=== PATIENT | female | born 1955 | race Caucasian/White ===

== ENCOUNTER 2018-06-15 19:52 | Emergency (ER) | payer BC, SELFPAY ==
[2018-06-15 19:53] VITALS: BP 143/87; PULSE 87; RESP 25; TEMP 37; O2SAT 100; BMI 24.0
--- NOTE | 2018-06-15 20:04 | ED.RN ---
PT HYPERVENTILATING IN TRIAGE, THIS RN EDUCATED PT ON SLOW DEEP BREATHING.
[2018-06-15] MEDS: 0.9% Normal Saline 1,000 ML 1000 ML IV (20:44)
[2018-06-15] MEDS: Ondansetron 4 MG/2 ML Vial IV (20:44)
[2018-06-15 20:48] LABS: Absolute Lymphocyte Count 3.37 X10^3/ul (0.83-4.51); Basophil# 0.04 X10^3/uL; Basophil% 0.5 % (0-1); Eosinophil# 0.24 X10^3/uL; Eosinophils% 2.8 % (0-5); Hematocrit 42.1 % (37-47); Hemoglobin 14.2 g/dl (12.0-15.0); Lymphocyte # 3.37 X10^3/ul (4.0); Lymphocyte % 39.9 % (19-41); Mean Corp Hgb Conc 33.7 g/gl (32-36); Mean Corpuscular Hgb 30.1 pg (27.0-32.0); Mean Corpuscular Volume 89.2 fL (81-99); Mean Platelet Vol. 9.8 fl (6.2-12.0); Monocyte# 0.81 X10^3/uL; Monocyte% 9.6 % (0-10); Neutrophil # 3.98 X10^3/uL (2.7-7.7); Neutrophil % 47.2 % (47-70); Platelet Count 269 K/mm3 (150-450); RBC Distribution Width CV 12.9 % (11.6-14.6); RBC Distribution Width SD 41.8 fl (35.1-43.9); Red Blood Count 4.72 M/mm3 (4.2-5.4); White Blood Count 8.4 K/mm3 (4.4-11.0)
[2018-06-15 20:52] LABS: POSITIVE COUNT NO; POSITIVE DIFFERENTIAL NO; POSITIVE MORPHOLOGY NO
[2018-06-15 21:00] LABS: AST(SGOT) 28 U/L (15-37); Alanine Aminotransfer ALT/SGPT 36 U/L (13-56); Albumin, Serum 3.8 g/dL (3.2-5.0); Alkaline Phosphatase 140 U/L (45-117); Anion Gap 12 (5-15); BUN 22 mg/dL (7-18); BUN/Creat Ratio 22.3 RATIO (10-20); Bilirubin, Direct 0.08 mg/dL (0.00-0.30); Calcium,Total 8.6 mg/dL (8.5-10.1); Chloride 108 mmol/L (98-107); Creatinine, Serum 0.99 mg/dL (0.55-1.02); EST Glomerular Filtration Rate 60 mL/min (>60); Est Glom Filt Rate - Afr Amer 73 mL/min (>60); Estimated Creatinine Clearance 49.57 ml/min; Globulin 3.5 g/dL (2.2-4.2); Glucose 153 mg/dL (74-106); Potassium 3.8 mmol/L (3.5-5.1); Protein, Total 7.3 g/dL (6.4-8.2); Sodium Level 142 mmol/L (136-145)
--- NOTE | 2018-06-15 22:01 | ED.VISSUMM ---
- ER Visit Summary Date of Service: 06/15/18 Chief Complaint: Weakness, diarrhea History of Present Illness: The patient is a 63 F who ate some greasy, fried food at dinner. Patient states this type of food usually does not settle well with her. Shortly after dinner she developed lightheadedness, as if she is going to pass out, and tingling of her arms and legs. She did have diarrhea twice. She reports some nausea but no diarrhea. Patient denies chest pain or palpitations. She is a history of reflux disease. Physical Examination: Vital signs are unremarkable. Patient sitting upright in bed no acute distress. Head neck examination is normal. Heart is regular rate and rhythm. Lung sounds are clear. Abdomen is soft and nontender. Active bowel sounds are noted throughout. Neuro exam is nonfocal. Test Results: EKG is sinus 85 with no sign of acute ischemia. CBC and chemistry studies significant for glucose of 153. BUN is 22, creatinine is normal. LFTs significant only for alk phos of 140. Emergency Department Course and Treatment: Patient is given IV fluids along with Zofran. Repeat evaluation she does feel improved. She states she was able to ablate to the restroom and feels stronger. She is tolerating p.o. fluids at this time. I believe her symptoms are likely secondary to vasovagal reaction. This was discussed with patient as well as family members. She will be discharged home with her at this time. Treatment Plan: [] Disposition: Discharge Impression: 1. Vasovagal, near syncope 2. Diarrhea This note was generated with [employer] dictation software. It may contain incorrect words, spelling, and punctuation that were not noted in review of the chart prior to signing ED Disposition - Plan for ED Patient: Disposition: Home or Assisted Living Chief Complaint: General Illness Instructions: ED Near Syncope Vasovagal Referrals: Maddy Beard MD [Primary Care Provider] - 3-5 Days if not improving
[2018-06-15 22:03] VITALS: BP 150/73; PULSE 85; RESP 16; O2SAT 98
[2018-06-15 22:18] VITALS: BP 145/76; PULSE 97; RESP 13; O2SAT 98
== END 2018-06-15 22:19 | disposition home or self-care (01) ==
PROVIDERS: Emergency Provider Emergency Medicine; Family Provider Family Medicine; PCP Family Medicine
DX: R55 Syncope and collapse (principal); R19.7 Diarrhea, unspecified; Z79.82 Long term (current) use of aspirin; Z87.891 Personal history of nicotine dependence
CPT/HCPCS: 80048; 80076; 85025; 93005; 96361; 96374; 96375; 99284; J7030; A4216; J2405

== ENCOUNTER 2019-11-08 20:34 | Emergency (ER) | payer MEDICARE, SELFPAY ==
[2019-11-08 20:34] VITALS: BP 156/80; PULSE 103; RESP 13; O2SAT 100
[2019-11-08 20:36] VITALS: BP 145/98; PULSE 112; RESP 16; TEMP 36.7; O2SAT 100; BMI 26.1
--- NOTE | 2019-11-08 20:36 | ED.RN ---
PULLED OLD ZACHARIAH FOR
--- NOTE | 2019-11-08 20:38 | EKG12_ITS ---
Test Reason : PALPITATIONS Blood Pressure : / mmHG Vent. Rate : 098 BPM Atrial Rate : 098 BPM P-R Int : 176 ms QRS Dur : 086 ms QT Int : 348 ms P-R-T Axes : 052 116 036 degrees QTc Int : 444 ms Normal sinus rhythm Possible Left atrial enlargement Right axis deviation Confirmed by KELSEY BERTRAND, JONATHAN ([id number]), editorial clerk LUIS CARLOS HOLT ([id number]) on 11/11/2019 12:53:23 PM Referred By: Confirmed By:JONATHAN COLE MD
--- NOTE | 2019-11-08 21:05 | RAD_ITS ---
STUDY: X-RAY CHEST REASON FOR EXAM: Female, 64 years old. HIGH BLOOD PRESSURE, PALPITATIONS TECHNIQUE: Single AP portable view of the chest. COMPARISON: Prior study of 07/06/2010 FINDINGS: manager monitoring leads are present. The lungs are clear and expanded. There is no demonstrated pleural abnormality. Normal size heart. Normal mediastinum and blanca. Normal visualized pulmonary arteries. There are calcified plaques in the aortic arch. Normal visualized thoracic spine. Normal visualized ribs, clavicles, and shoulders. There is no demonstrated abnormality of the visualized soft tissue structures of the upper abdomen. RAD/Chest 1 View (Portable) IMPRESSION: Calcified plaques of the aortic arch. No acute cardiopulmonary disease process is seen. Electronically Signed: Scottie Cash MD at 21:25 EST , Service support ,
[2019-11-08 21:06] LABS: Absolute Neutrophil Count 7.8 X10^3/uL (2.0-7.7); Basophil# 0.05 X10^3/uL; Basophil% 0.4 % (0-1); Eosinophil# 0.13 X10^3/uL; Eosinophils% 1.1 % (0-5); Hemoglobin 14.2 g/dL (12.0-15.0); Lymphocyte % 26.7 % (19-41); Mean Corp Hgb Conc 33.8 g/dL (32-36); Mean Corpuscular Hgb 29.4 pg (27.0-32.0); Mean Platelet Vol. 9.3 fl (6.2-12.0); Monocyte% 6.7 % (0-10); NRBC Flagged by Analyzer 0 % (0-5); Neutrophil # 7.76 X10^3/uL (2.7-7.7); Neutrophil % 64.6 % (47-70); Platelet Count 309 K/mm3 (150-450); RBC Distribution Width CV 12.1 % (11.6-14.6); RBC Distribution Width SD 38.3 fl (35.1-43.9); Red Blood Count 4.83 M/mm3 (4.2-5.4)
[2019-11-08 21:13] LABS: Prothrombin Time (Protime)PT. 13.1 SECONDS (11.7-14.9)
[2019-11-08 21:27] LABS: Anion Gap 11 (5-15); BUN 21 mg/dL (7-18); BUN/Creat Ratio 21.2 RATIO (10-20); Calcium,Total 9.2 mg/dL (8.5-10.1); Chloride 102 mmol/L (98-107); Creatinine, Serum 0.99 mg/dL (0.55-1.02); EST Glomerular Filtration Rate 60 mL/min (>60); Est Glom Filt Rate - Afr Amer 72 mL/min (>60); Estimated Creatinine Clearance 48.92 ml/min; Glucose 117 mg/dL (74-106); Potassium 3.9 mmol/L (3.5-5.1); Sodium Level 134 mmol/L (136-145)
--- NOTE | 2019-11-08 22:32 | ED.VISSUMM ---
- ER Visit Summary Date of Service: 11/08/19 Chief Complaint: Palpitations History of Present Illness: The patient is a 64 F who presents with palpitations, hypertension, dizziness that is been getting worse over the past 4 hours. Patient states she has been having some intermittent lightheadedness with this. Patient states her blood pressure at home was 207 systolic. Patient states her blood pressure has been going up and down. Patient admits to some tingling in her hands. Patient denies any chest pain. Patient denies any shortness of breath. Patient denies any nausea or vomiting. Patient denies any diaphoresis. Physical Examination: Vital signs are stable. Patient is afebrile. Patient is in no acute distress. Oral mucosa is pink and moist. Neck is supple. Trachea is midline. There is no JVD noted. Heart was regular rate and rhythm. Lungs are clear and equal bilaterally. Abdomen is soft. Bowel sounds are normal. There is no tenderness. There is no rebound or guarding noted. Skin is warm dry. Cranial nerves II through XII are intact. There are no focal motor or sensory deficits noted. Extremities are intact. There is no calf tenderness or edema. Test Results: EKG showed normal sinus rhythm with a rate of 98. There are nonspecific ST-T wave changes and a right bundle branch block. This was unchanged compared to previous EKG dated 06/15/2018. CBC shows a slight leukocytosis of 12.0. Basic metabolic profile was normal. INR is 1.0. Troponin was normal. Portable chest x-ray was obtained. There are chronic changes but no acute cardiopulmonary process. This was interpreted by the radiologist and myself. Emergency Department Course and Treatment: Patient was monitored here in the emergency department. Patient had no further episodes of palpitations. Patient's blood pressure remained stable. Patient was instructed to continue to monitor her symptoms. Patient was instructed to follow-up with her primary care physician in 5 to 7 days. Patient and family understood and were agreeable with the plan. All questions were answered. Disposition: Discharge home Impression: 1. Palpitations This note was generated with [employer] software. It may contain incorrect words, spelling, and punctuation that were not noted in review of the chart prior to signing ED Disposition - Plan for ED Patient: Disposition: Home or Assisted Living Diagnosis: Palpitations Instructions: Palpitations Referrals: Maddy Beard MD [Primary Care Provider] - 5-7 Days
[2019-11-08 22:35] VITALS: BP 146/68; PULSE 93; RESP 13; O2SAT 99
== END 2019-11-08 22:41 | disposition home or self-care (01) ==
PROVIDERS: Emergency Provider Emergency Medicine; Family Provider Family Medicine; PCP Family Medicine
DX: R00.2 Palpitations (principal); R42 Dizziness and giddiness; R20.2 Paresthesia of skin; I45.10 Unspecified right bundle-branch block; I10 Essential (primary) hypertension; K21.9 Gastro-esophageal reflux disease without esophagitis; Z79.82 Long term (current) use of aspirin; Z79.899 Other long term (current) drug therapy; I70.0 Atherosclerosis of aorta
CPT/HCPCS: 71045; 80048; 84484; 85025; 85610; 93005; 99284; A4216

== ENCOUNTER → 2020-05-14 17:39 | Outpatient (CLI) | payer MEDICARE, SELFPAY | PROVIDERS: PCP Family Medicine; Referring Provider Internal Medicine Gastroenterology; Visit Provider Internal Medicine Gastroenterology | DX: Z11.59 Encounter for screening for other viral diseases (principal) | CPT/HCPCS: 87635; G2023; U0003 ==

== ENCOUNTER → 2020-06-17 07:33 | Outpatient (CLI) | payer MEDICARE, SELFPAY ==
--- NOTE | 2020-06-17 09:19 | NEURO ---
NCS and/or EMG Patient Report Ordering Doctor: Maddy Beard DATE OF SERVICE: 06/17/20 Richelle Gama is a 65-year-old female presents for electrodiagnostic testing of the left lower limb. Electrodiagnostic findings: Left common peroneal nerve demonstrates normal distal latency, amplitude and conduction velocity. Normal left tibial motor response. Normal tibial and peroneal F wave. H reflex normal bilaterally. Sensory responses are within normal limits. On needle EMG, all muscles tested in the left lower limb showed no evidence of denervation with normal motor unit action potentials. Electrodiagnostic impression: This is a normal electrodiagnostic study of the left lower limb. There is no electrodiagnostic evidence for peripheral neuropathy or lumbosacral radiculopathy. If there are any further questions, please do not hesitate to contact me.
== END ==
PROVIDERS: PCP Family Medicine; Referring Provider Family Medicine; Visit Provider Family Medicine
DX: G62.89 Other specified polyneuropathies (principal)
CPT/HCPCS: 95886; 95910

== ENCOUNTER → 2020-09-09 08:45 | Outpatient (CLI) | payer MEDICARE, SELFPAY ==
[2020-09-09 10:37] LABS: Anion Gap 3 (5-15); BUN 17 mg/dL (7-18); BUN/Creat Ratio 18.4 RATIO (10-20); Calcium,Total 8.6 mg/dL (8.5-10.1); Chloride 107 mmol/L (98-107); Cholesterol 257 mg/dL (200); Creatinine, Serum 0.93 mg/dL (0.55-1.02); EST Glomerular Filtration Rate 64 mL/min (>60); Est Glom Filt Rate - Afr Amer 78 mL/min (>60); Glucose 86 mg/dL (74-106); High Density Lipoprotein 42 mg/dL; Potassium 4.8 mmol/L (3.5-5.1); Sodium Level 141 mmol/L (136-145); Triglycerides 321 mg/dL; Very Low Density Lipoprotein 64 mg/dL (5-40)
== END ==
PROVIDERS: PCP Family Medicine; Referring Provider Family Medicine; Visit Provider Family Medicine
DX: I10 Essential (primary) hypertension (principal)
CPT/HCPCS: 36415; 80048; 80061

== ENCOUNTER → 2020-11-18 08:41 | Outpatient (CLI) | payer MEDICARE, SELFPAY ==
[2020-11-18 10:38] LABS: AST(SGOT) 43 U/L (15-37); Alanine Aminotransfer ALT/SGPT 87 U/L (13-56); Cholesterol 195 mg/dL (200); High Density Lipoprotein 39 mg/dL; Triglycerides 274 mg/dL; Very Low Density Lipoprotein 55 mg/dL (5-40)
== END ==
PROVIDERS: PCP Family Medicine; Referring Provider Family Medicine; Visit Provider Family Medicine
DX: E78.00 Pure hypercholesterolemia, unspecified (principal)
CPT/HCPCS: 36415; 80061; 84450; 84460

== ENCOUNTER → 2021-09-20 18:08 | Outpatient (CLI) | payer MEDICARE, SELFPAY | PROVIDERS: PCP Family Medicine; Visit Provider Family Medicine | DX: J06.9 Acute upper respiratory infection, unspecified (principal) | CPT/HCPCS: 87635; U0005; U0003 ==

== ENCOUNTER 2022-01-04 09:07 | Outpatient (CLI) | payer MEDICARE, SELFPAY ==
[2022-01-04 10:42] LABS: Microalbumin,Random Urine 9.6 mg/L (NO RANGE EST.); Microalbumin:Creatinine Ratio 5.5 mg/g CRE (<30 mg/g CRE)
[2022-01-04 13:07] LABS: AST(SGOT) 30 U/L (15-37); Alanine Aminotransfer ALT/SGPT 68 U/L (13-56); Anion Gap 6 (5-15); BUN 23 mg/dL (7-18); BUN/Creat Ratio 24.9 RATIO (10-20); Calcium,Total 8.8 mg/dL (8.5-10.1); Chloride 101 mmol/L (98-107); Cholesterol 191 mg/dL (200); Creatinine, Serum 0.92 mg/dL (0.55-1.02); EST Glomerular Filtration Rate 64 mL/min (>60); Est Glom Filt Rate - Afr Amer 78 mL/min (>60); Glucose 82 mg/dL (74-106); High Density Lipoprotein 43 mg/dL; Potassium 3.6 mmol/L (3.5-5.1); Sodium Level 138 mmol/L (136-145); Triglycerides 179 mg/dL; Very Low Density Lipoprotein 36 mg/dL (5-40)
== END 2022-01-04 23:59 | disposition home or self-care (01) ==
LOC: MTLAB 09:09
PROVIDERS: PCP Family Medicine; Referring Provider Family Medicine; Visit Provider Family Medicine
DX: E78.00 Pure hypercholesterolemia, unspecified (principal); I10 Essential (primary) hypertension
CPT/HCPCS: 36415; 80048; 80061; 82043; 82570; 84450; 84460

== ENCOUNTER → 2023-01-09 | Outpatient (CLI) | payer MEDICARE, SELFPAY ==
[2023-01-09 10:21] LABS: AST(SGOT) 22 U/L (15-37); Alanine Aminotransfer ALT/SGPT 38 U/L (13-56); Anion Gap 6 (5-15); BUN 16 mg/dL (7-18); BUN/Creat Ratio 18.4 RATIO (10-20); Calcium,Total 9.3 mg/dL (8.5-10.1); Chloride 101 mmol/L (98-107); Cholesterol 176 mg/dL (200); Creatinine, Serum 0.87 mg/dL (0.55-1.02); EST Glomerular Filtration Rate 69 mL/min (>60); Est Glom Filt Rate - Afr Amer 83 mL/min (>60); Glucose 92 mg/dL (74-106); High Density Lipoprotein 44 mg/dL; Sodium Level 137 mmol/L (136-145); Triglycerides 210 mg/dL; Very Low Density Lipoprotein 42 mg/dL (5-40)
[2023-01-09 10:28] LABS: Microalbumin,Random Urine 8.2 mg/L (NO RANGE EST.); Microalbumin:Creatinine Ratio 5.5 mg/g CRE (<30 mg/g CRE)
== END | disposition home or self-care (01) ==
LOC: MFPLAB 08:17
PROVIDERS: PCP Family Medicine; Visit Provider Family Medicine
DX: E78.00 Pure hypercholesterolemia, unspecified (principal); I10 Essential (primary) hypertension
CPT/HCPCS: 36415; 80048; 80061; 82043; 82570; 84450; 84460

== ENCOUNTER → 2023-01-12 | Outpatient (CLI) | payer MEDICARE, SELFPAY ==
--- NOTE | 2023-01-12 14:50 | BI_ITS ---
MAMMOGRAPHY - BILATERAL SCREENING REASON FOR EXAM: Female, 67 years old. Routine annual screening examination. PERTINENT HISTORY: Non-contributory. TECHNIQUE: Digital bilateral breast jessica (3D mammographic acquisition) in the CC and MLO projections. 2-D mediolateral oblique (MLO) and craniocaudad (CC) views of both breasts were obtained. CAD: Full Field Digital Mammography with Computer Added Detection was performed. COMPARISON: Comparison is made with prior outside examination dated December 11, 2019 and prior examination dated September 23, 2017. FINDINGS: Breast Composition: There are scattered areas of fibroglandular density. There are no dominant masses or suspicious calcifications. Stable small benign-appearing bilateral axillary lymph nodes. No other significant abnormalities are identified. There has been no significant change since the prior study. BI/SCRN MAMM (CAD)W/JESSICA BILAT IMPRESSION: Stable bilateral screening mammogram. Yearly follow-up mammogram recommended. (A) ASSESSMENT CATEGORY: BIRADS Category 2: Benign. A letter regarding these results will be sent to the patient by the facility within 30 days. Approximately 10% of breast cancers are not detected by mammography. A normal mammogram should not delay biopsy of a clinically suspicious abnormality. [id number] Electronically Signed: Maxwell Elkins MD at 11:58 EST ,
--- NOTE | 2023-01-12 14:56 | BD_ITS ---
STUDY: DUAL ENERGY X-RAY ABSORPTIOMETRY / DXA REASON FOR EXAM: Female, 67 years old. 733.90OsteopeniaBONE DENSITY REASON FOR EXAM TECHNIQUE: Bone Mineral Density (BMD) measurements of lumbar spine and bilateral hips were obtained. COMPARISON: None. FINDINGS: Lumbar Spine (L1-L4): g/cm2 (0.751) / T-score (-2.4) / Z-score (-0.4) Findings are suggestive of osteopenia with a high fracture risk. Left Femur Total: g/cm2 (0.668) / T-score (-2.2) / Z-score (-0.8) Left Femoral Neck: g/cm2 (0.528) / T-score (-2.9) / Z-score (-1.2) Right Femur Total: g/cm2 (0.638) / T-score (-2.5) / Z-score (-1.1) Right Femoral Neck: g/cm2 (0.537) / T-score (-2.8) / Z-score (-1.1) BD/Dexa Bone Density Study IMPRESSION: The patient is considered osteoporotic as outlined below according to World Fidel Organization (WHO) criteria with a high fracture risk. Reference Information: The T-score is the number of standard deviations above or below the standard which is normal for young adults at their peak bone mineral density. The World Health Organization (WHO) interprets the T-scores as follows: Above -1 Normal bone density Between -1 and -2.5 Osteopenia Equal to / or below -2.5 Osteoporosis As a practical clinical guideline, osteopenia may be graded as follows: Mild -1 through -1.5 Moderate -1.6 through -2.0 Severe -2.1 through -2.4 The Z-score is the number of standard deviations above or below age-matched controls. A Z-score of less than -1.5 would be considered abnormal. References: 1. NIH Osteoporosis and Related Bone Diseases www osteo.org 2. International Society for Clinical Densitometry www iscd.org 3. National Osteoporosis Foundation www nof.org Electronically Signed: Maxwell Elkins MD at 14:18 EST ,
== END | disposition home or self-care (01) ==
PROVIDERS: PCP Family Medicine; Referring Provider Family Medicine; Visit Provider Family Medicine
DX: M85.89 Other specified disorders of bone density and structure, multiple sites (principal); N95.9 Unspecified menopausal and perimenopausal disorder; Z12.31 Encounter for screening mammogram for malignant neoplasm of breast
CPT/HCPCS: 77063; 77067; 77080

== ENCOUNTER → 2024-01-01 | Outpatient (CLI) | payer MEDICARE, SELFPAY ==
[2024-01-01 15:57] LABS: Microalbumin,Random Urine < 5.0 mg/L (NO RANGE EST.)
[2024-01-01 16:07] LABS: AST(SGOT) 23 U/L (15-37); Alanine Aminotransfer ALT/SGPT 38 U/L (13-56); Anion Gap 6 (5-15); BUN 17 mg/dL (7-18); BUN/Creat Ratio 21.7 RATIO (10-20); Chloride 98 mmol/L (98-107); Cholesterol 177 mg/dL (200); Creatinine, Serum 0.78 mg/dL (0.55-1.02); EST Glomerular Filtration Rate 77 mL/min (>60); Est Glom Filt Rate - Afr Amer 94 mL/min (>60); Glucose 82 mg/dL (74-106); High Density Lipoprotein 40 mg/dL; Potassium 3.9 mmol/L (3.5-5.1); Sodium Level 134 mmol/L (136-145); Triglycerides 289 mg/dL; Very Low Density Lipoprotein 58 mg/dL (5-40)
--- OUTSIDE RECORDS SUMMARY | 2024-01-01 20:15 | XMS RPT_ITS | CCD ---
Author Name Unknown Address [address] [place] [address] Organization [facility] Care Team Providers [facility] Name Role Phone Maddy Beard Primary Care Provider [phone] Allergies Allergy Classification Reported Allergen(s) Allergy Type Date of Onset Reaction(s) Facility (4 sources) Sulfacetamide Drug Allergy 12-20-2011 GI Upset [facility] Work Phone: Medications Completed/Discontinued Medications Medication Drug Class(es) Dates Sig (Normalized) Sig (Original) aspirin 81 mg delayed release oral tablet (4 sources) Platelet Aggregation Inhibitor, Nonsteroidal Anti-inflammatory Drug Start: 12-20-2011 take 1 tablet by mouth once daily aspirin, enteric coated (ADULT LOW DOSE ASPIRIN) 81 mg ORAL EC tablet Take 1 tablet by mouth once daily. 0 12/20/2011 Active Problems Active Problems Problem Classification Problem Date Documented Da te Episodic/Chronic Other female genital disorders (2 sources) Lesion of vulva; Translations: [Other specified noninflammatory disorders of vulva and perineum] Episodic Other female genital disorders (1 source) Vulval irritation; Translations: [Other specified noninflammatory disorders of vulva and perineum] Episodic Other screening for suspected conditions (not mental disorders or infectious disease) (1 source) Patient encounter status; Translations: [Encounter for screening mammogram for malignant neoplasm of breast] Episodic Past or Other Problems Problem Classification Problem Date Documented Da te Episodic/Chronic Cardiac dysrhythmias (4 sources) Tachycardia; Translations: [Tachycardia, unspecified] Onset: 01-11-2013 01-11-2013 Episodic Results Test Name Value Interpretation Reference Range Facil ity Vital Signs Date Time Vital Sign Value Performing Clinician Jeffery curry 05-16-2022 09:18-0400 Body weight 66.95 kg Jewell Abarca MD Work Phone: [facility] 05-16-2022 09:18-0400 Diastolic blood pressure 68 mm[Hg] Jewell Abarca MD Work Phone: [facility] 05-16-2022 09:18-0400 Systolic blood pressure 110 mm[Hg] Jewell Abarca MD Work Phone: [facility] 03-09-2022 11:47-0400 Body weight 67.59 kg Jewell Abarca MD Work Phone: [facility] 03-09-2022 11:47-0400 Diastolic blood pressure 84 mm[Hg] Jewell Abarca MD Work Phone: [facility] 03-09-2022 11:47-0400 Systolic blood pressure 170 mm[Hg] Jewell Abarca MD Work Phone: [facility] 02-23-2022 15:52-0400 Body height 161.9 cm Jewell Abarca MD Work Phone: [facility] 02-23-2022 15:52-0400 Body weight 68.04 kg Jewell Abarca MD Work Phone: [facility] 02-23-2022 15:52-0400 Diastolic blood pressure 80 mm[Hg] Jewell Abarca MD Work Phone: [facility] 02-23-2022 15:52-0400 Systolic blood pressure 128 mm[Hg] Jewell Abarca MD Work Phone: [facility] Encounters Encounter Date Encounter Type Care Provider Facility Start: 05-16-2022 End: 05-16-2022 Patient encounter procedure Jewell Abarca MD Work Phone: OB/Gynecology Procedures Date Procedure Procedure Detail Performing Clinician Start: 12-11-2019 Mammography Jewell garcia MD Work Phone: Plan of Treatment Date Care Activity Detail Author Start: 07-07-2022 Influenza vaccination [facility] Start: 11-06-2021 ADVANCE DIRECTIVE DISCUSSION ADVANCE DIRECTIVE DISCUSSION [facility] Start: 08-25-2021 COVID-19 VACCINE (3 - Booster for Moderna series) COVID-19 VACCINE (3 - Booster for Moderna series) [facility] Start: 12-11-2020 Mammography MAMMOGRAM [facility] Start: 2019 BONE DENSITY BONE DENSITY [facility] Start: 2019 PNEUMOCOCCAL: 65+ (1 - PCV) PNEUMOCOCCAL: 65+ (1 - PCV) [facility] Start: 2019 PNEUMOVAX AGE 65 AND OVER WITH 5YR LOOKBACK (#1) PNEUMOVAX AGE 65 AND OVER WITH 5YR LOOKBACK (#1) [facility] Start: 12-20-2013 LIPID SCREEN LIPID SCREEN [facility] Start: 01-22-2004 SHINGRIX VACCINE (1 of 2) SHINGRIX VACCINE (1 of 2) [facility] Start: 1999 COLOGUARD (FIT-DNA) COLOGUARD (FIT-DNA) [facility] Start: 1999 Colonoscopy COLONOSCOPY [facility] Start: 1999 COLORECTAL CANCER SCREENING COLORECTAL CANCER SCREENING [facility] Start: [address] COLONOGRAPHY [facility] Start: 1999 DIABETES SCREEN DIABETES SCREEN [facility] Start: 1999 FECAL OCCULT BLOOD FECAL OCCULT BLOOD [facility] Start: 1999 SIGMOIDOSCOPY SIGMOIDOSCOPY [facility] Start: 1973 Urine microalbumin profile DTAP,TDAP,TD (1 - Tdap) [facility] Start: 01-22-1972 HEPATITIS C SCREENING HEPATITIS C SCREENING [facility] Start: 1966 Adult depression screening assessment DEPRESSION SCREENING [facility] Biopsy vulva/perineu m 1 lesion spx BIOPSY OF VULVA Procedures Routine Vulval lesion Ordered: 02/23/[address] [facility] Work Phone: Payers Date Payer Category Payer Unknown AN[employer] BL[employer] CR[employer] S AND BLUE [employer] MED[employer] ACCESS [id number] 2019-Present [phone] [address] [place] [address] [facility] [id number] Social History Date Type Detail Facility Tobacco smoking stat us INIS Never smoked tobacco [facility] Start: 02-23-2022 End: 05-16-2022 Alcohol intake Current non-drinker of alcohol (finding) [facility] Start: 1955 Sex Assigned At Not on file [facility] Start: 02-13-2022 End: 05-16-2022 Exposure to SARS-CoV-2 (event) Not sure [facility] Clinical Notes 01-11-2013 to 05-16-2022 Jewell Abarca MD - 05/16/2022 9:14 AM EDTTelephone Encounter - Sandrita Gilman RN - 03/09/2022 2:51 PM EDTTelephone Encounter - Jewell Abarca MD - 03/09/2022 2:46 PM EDT Note Date & Type Note Facility 05-16-2022 Note HNO ID: [id number] Author: Jewell Abarca MD Service: ? Author Type: Physician Type: Progress Notes Filed: 05/16/2022 9:33 AM Note Text: Americo Lees is a 67 year old female who presents for problem visit for f/u vulvar irritation. S/p biopsy. No definitive lichen planus or sclerosis. Feels much better. on steroid ointment taper, using every other day. No pruritis or burning. No dysuria. OB History T0 L2 SAB0 IAB0 Ectopic0 Multiple0 Live Births0 Comment: 2 vaginal deliveries [employer] History LMP: Postmenopausal Age at Menarche: Age at First : Age at Menopause: [employer] History Comments: Sexual Activity: Yes; No partner data on record; Postmenopusal Contraception: Tubal Ligation PAST MEDICAL HISTORY Diagnosis Date - Abnormal pap 11/25/2011 - Arthritis - Cervical high risk HPV (human papillomavirus) test positive 11/25/2011 - Diverticulitis - Hypertension PAST SURGICAL HISTORY Procedure Laterality Date - COLONOSCOPY 04/2016 - COLPOSCOPY CERVIX UPPER/ADJACENT VAGINA 2011 Colposcopy - LIG/TRNSXJ FLP TUBE ABDL/VAG APPR UNI/BI FAMILY HISTORY Problem Relation Age of Onset - Cancer Mother - Heart Father - Heart Sister - Prostate Cancer Brother 50's - Cancer Brother face Social History Tobacco Use - Smoking status: Never Smoker - Smokeless tobacco: Never Used Vaping Use - Vaping Use: Never used Substance Use Topics - Alcohol use: No - Drug use: No Current Outpatient Medications Medication Sig - clobetasol (TEMOVATE) 0.05 % ointment Apply 1 application to affected area as directed. pea-sized amount to vulvar area bid x 4 weeks, daily x 4 weeks then every other day for 4 weeks - rosuvastatin (CRESTOR) 10 mg tablet Take 10 mg by mouth once daily. - hydroCHLOROthiazide (HYDRODIURIL, ESIDRIX) 12.5 mg tablet Take 12.5 mg by mouth once daily. - pantoprazole DR (PROTONIX) 40 mg tablet TAKE 1 TABLET BY MOUTH ONCE DAILY IN THE MORNING BEFORE BREAKFAST - AMITIZA 8 mcg capsule Take 8 mcg by mouth twice daily. - metoprolol tartrate, short acting, 25 mg tablet Take 25 mg by mouth twice daily. - wt-HM-NG-Sk-Oxw-Mborwzo-Lutein (CENTRUM) 0.4-162-18 mg ORAL Tab Take 1 tablet by mouth once daily. - aspirin, enteric coated (ADULT LOW DOSE ASPIRIN) 81 mg ORAL EC tablet Take 1 tablet by mouth once daily. - zolpidem (AMBIEN) 5 mg ORAL tablet Take 1 tablet by mouth at bedtime as needed. FOR INSOMNIA No current facility-administered medications for this visit. Allergies As of Date: 05/16/2022 Allergen Noted Reaction SULFACETAMIDE 12/20/2011 GI Upset Fully Assessed 05/16/2022 Allergies and current medication updated:Yes EXAM: BP 110/68 Wt 147 lb 9.6 oz (67.0kg) GENERAL: pleasant, female in no apparent distress PELVIC: external genitalia atrophic and only mild erythema near urethra and inner upper labia majora bilaterally. No ulcerations or hyperpigmentation, normal Bartholin's glands, urethra, [place]'s glands, no vulvar lesions, no cervical lesions, good vaginal support, physiologic discharge present, normal appearing perineal body and perianal region BIMANUAL: uterus normal size, shape and consistency, no adnexal masses and non-tender ASSESSMENT AND PLAN: vulvar irritation- flares up. Doing well w/ steroid. Use it once a week maintanence and then daily for 2 weeks prn flares. She agrees w/ plan Medical Decision Making Jewell Abarca MD [facility] 05-16-2022 History of Present illness Narrative Americo Lees is a 67 year old female who presents for problem visit for f/u vulvar irritation. S/p biopsy. No definitive lichen planus or sclerosis. Feels much better. on steroid ointment taper, using every other day. No pruritis or burning. No dysuria. OB History T0 L2 SAB0 IAB0 Ectopic0 Multiple0 Live Births0 Comment: 2 vaginal deliveries [employer] History LMP: Postmenopausal Age at Menarche: Age at First : Age at Menopause: [employer] History Comments: Sexual Activity: Yes; No partner data on record; Postmenopusal Contraception: Tubal Ligation PAST MEDICAL HISTORY Diagnosis Date Abnormal pap 11/25/2011 Arthritis Cervical high risk HPV (human papillomavirus) test positive 11/25/2011 Diverticulitis Hypertension PAST SURGICAL HISTORY Procedure Laterality Date COLONOSCOPY 04/2016 COLPOSCOPY CERVIX UPPER/ADJACENT VAGINA 2011 Colposcopy LIG/TRNSXJ FLP TUBE ABDL/VAG APPR UNI/BI FAMILY HISTORY Problem Relation Age of Onset Cancer Mother Heart Father Heart Sister Prostate Cancer Brother 50's Cancer Brother face Social History Tobacco Use Smoking status: Never Smoker Smokeless tobacco: Never Used Vaping Use Vaping Use: Never used Substance Use Topics Alcohol use: No Drug use: No Current Outpatient Medications Medication Sig clobetasol (TEMOVATE) 0.05 % ointment Apply 1 application to affected area as directed. pea-sized amount to vulvar area bid x 4 weeks, daily x 4 weeks then every other day for 4 weeks rosuvastatin (CRESTOR) 10 mg tablet Take 10 mg by mouth once daily. hydroCHLOROthiazide (HYDRODIURIL, ESIDRIX) 12.5 mg tablet Take 12.5 mg by mouth once daily. pantoprazole DR (PROTONIX) 40 mg tablet TAKE 1 TABLET BY MOUTH ONCE DAILY IN THE MORNING BEFORE BREAKFAST AMITIZA 8 mcg capsule Take 8 mcg by mouth twice daily. metoprolol tartrate, short acting, 25 mg tablet Take 25 mg by mouth twice daily. ys-SV-BZ-Hn-Sxs-Ggspawg-Lutein (CENTRUM) 0.4-162-18 mg ORAL Tab Take 1 tablet by mouth once daily. aspirin, enteric coated (ADULT LOW DOSE ASPIRIN) 81 mg ORAL EC tablet Take 1 tablet by mouth once daily. zolpidem (AMBIEN) 5 mg ORAL tablet Take 1 tablet by mouth at bedtime as needed. FOR INSOMNIA No current facility-administered medications for this visit. Allergies As of Date: 05/16/2022 Allergen Noted Reaction SULFACETAMIDE 12/20/2011 GI Upset Fully Assessed 05/16/2022 Allergies and current medication updated:Yes EXAM: BP 110/68 Wt 147 lb 9.6 oz (67.0kg) GENERAL: pleasant, female in no apparent distress \PELVIC: external genitalia atrophic and only mild erythema near urethra and inner upper labia majora bilaterally. No ulcerations or hyperpigmentation, normal Bartholin's glands, urethra, [place]'s glands, no vulvar lesions, no cervical lesions, good vaginal support, physiologic discharge present, normal appearing perineal body and perianal region BIMANUAL: uterus normal size, shape and consistency, no adnexal masses and non-tender ASSESSMENT AND PLAN: vulvar irritation- flares up. Doing well w/ steroid. Use it once a week maintanence and then daily for 2 weeks prn flares. She agrees w/ plan Medical Decision Making Jewell Abarca MD documented in this encounter [facility] 03-09-2022 Miscellaneous Notes Patient notified. Sandrita Gilman RN tylenol, ibuprofen. Can soak in some plain warm water. Use cold packs prn. Keep it covered w/ Neosporin, Aquaphor or Vaseline to help with the burning. Jewell Abarca MD Patient seen in office today for vulvar biopsy. States the area is burning so badly she can't think about anything else. Did apply Neosporin. Wearing loose fitting clothing. Inquired if patient can take Tylenol or NSAID. Patient can take Tylenol and will see if that helps. Do you have further recommendations? Lissa Mcnally RN documented in this encounter [facility] 03-09-2022 Note HNO ID: [id number] Author: Jewell Abarca MD Service: ? Author Type: Physician Type: Progress Notes Filed: 03/09/2022 12:20 PM Note Text: Americo Lees is a 67 year old female who presents today for a vulvar biopsy. Indication: persistent pruritis and lesion. UNIVERSAL PROTOCOL / SAFETY CHECKLIST Procedure to be Performed: vulvar biopsy Sign In: A Moment of CARE was completed. Personnel directly involved with the procedure wore the appropriate PPE (Personal Protective Equipment). Patient/Surrogate Stated/Verified: PATIENT VERIFIED(optional for EMERGENT procedures): Patient name, Date of , Relevant allergies and The intended procedure Time Out Communication: Intended patient and procedure match the source documents. Consent documented and matches the intended procedure. No implant(s) inserted. Sign Out: SIGN OUT (optional for EMERGENT procedures): All specimen containers correctly labeled. All instruments, equipment, possible retained foreign bodies accounted for. Post-procedure follow-up management communicated and Plan of Care Visit completed when applicable. Carmel Billingsley MID TEACHER PROCEDURE NOTE: GROSS LESIONS: Yes, right labium majorum erythemetous, right side of perineum raised light brown lesions BIOPSY: Area was cleansed with betadine and anesthetized with 0.2mL 1% lidocaine with 1:100,000 epi. 3mm [place] punch used to biopsy region. HEMOSTASIS: Obtained with silver nitrate and pressure Procedure Summary: ASSESSMENT: vulvar pruritis and lesion PLAN: Specimens labeled and sent to Pathology. Will notify patient of results in 1-2 weeks. Post-procedure instructions reviewed and written material given to the patient. Jewell Abarca MD [facility] 03-09-2022 History of Present illness Narrative Americo Lees is a 67 year old female who presents today for a vulvar biopsy. Indication: persistent pruritis and lesion. UNIVERSAL PROTOCOL / SAFETY CHECKLIST Procedure to be Performed: vulvar biopsy Sign In: A Moment of CARE was completed. Personnel directly involved with the procedure wore the appropriate PPE (Personal Protective Equipment). Patient/Surrogate Stated/Verified: PATIENT VERIFIED(optional for EMERGENT procedures): Patient name, Date of , Relevant allergies and The intended procedure Time Out Communication: Intended patient and procedure match the source documents. Consent documented and matches the intended procedure. No implant(s) inserted. Sign Out: SIGN OUT (optional for EMERGENT procedures): All specimen containers correctly labeled. All instruments, equipment, possible retained foreign bodies accounted for. Post-procedure follow-up management communicated and Plan of Care Visit completed when applicable. Carmel Billingsley MID TEACHER PROCEDURE NOTE: GROSS LESIONS: Yes, right labium majorum erythemetous, right side of perineum raised light brown lesions BIOPSY: Area was cleansed with betadine and anesthetized with 0.2mL 1% lidocaine with 1:100,000 epi. 3mm [place] punch used to biopsy region. HEMOSTASIS: Obtained with silver nitrate and pressure Procedure Summary: ASSESSMENT: vulvar pruritis and lesion PLAN: Specimens labeled and sent to Pathology. Will notify patient of results in 1-2 weeks. Post-procedure instructions reviewed and written material given to the patient. Jewell Abarca MD documented in this encounter [facility] 02-23-2022 Note HNO ID: [id number] Author: Jeewll Abarca MD Service: ? Author Type: Physician Type: Progress Notes Filed: 02/23/2022 4:28 PM Note Text: Americo is a 67 year old who presents for an annual gynecologic exam with complaints, occas vuvlar pruritis/irritation. . Was better after steroid and vaginal cream for BV last year but flares up. No bleeding. Postmenopausal: yes HRT use: No. Last Pap: 12/17/2019 normal HPV: 12/16/2019 negative History of abnormal pap: remotely Last mammogram: 2019 normal History of abnormal mammogram: No Sexually active: Yes OB History T0 L2 SAB0 IAB0 Ectopic0 Multiple0 Live Births0 Comment: 2 vaginal deliveries [employer] History LMP: Postmenopausal Age at Menarche: Age at First : Age at Menopause: [employer] History Comments: Sexual Activity: Yes; No partner data on record; Postmenopusal Contraception: Tubal Ligation PAST MEDICAL HISTORY Diagnosis Date - Abnormal pap 11/25/2011 - Arthritis - Cervical high risk HPV (human papillomavirus) test positive 11/25/2011 - Diverticulitis - Hypertension PAST SURGICAL HISTORY Procedure Laterality Date - COLONOSCOPY 04/2016 - COLPOSCOPY CERVIX UPPER/ADJACENT VAGINA 2011 Colposcopy - LIG/TRNSXJ FLP TUBE ABDL/VAG APPR UNI/BI FAMILY HISTORY Problem Relation Age of Onset - Cancer Mother - Heart Father - Heart Sister - Prostate Cancer Brother 50's - Cancer Brother face SOCIAL HISTORY Social History Tobacco Use - Smoking status: Never Smoker - Smokeless tobacco: Never Used Vaping Use - Vaping Use: Never used Substance Use Topics - Alcohol use: No - Drug use: No REVIEW OF SYSTEMS Abdomen: No abdominal pain, nausea, vomiting, diarrhea, or constipation. No bloating, early satiety, indigestion, or increased flatulence. Bladder: No dysuria, gross hematuria, urinary frequency, urinary urgency, or incontinence Breast: No breast lumps, nipple d/c, overlying skin changes, redness or skin retraction Allergies and current medication updated:Yes EXAM: Ht 5' 3.75 (1.62m) Wt 150 lb (68.0kg) BMI 25.96 kg/(m2). GENERAL: pleasant, female in no apparent distress HEENT: Normocephalic, atraumatic, mucus membranes moist and no lesions NECK: Supple, full range of motion, no adenopathy and thyroid normal DERMATOLOGY: Normal, without lesions, non-icteric and non-hirsute BREAST: soft, non-tender, symmetric, no dominant mass, normal nipple-areolar complex, no lymphadenopathy and no nipple discharge CHEST: Normal inspiratory effort ABDOMEN: soft, non-tender and no masses PELVIC: external genitalia ww/ some erythema, ulcerated looking lesions on bilateral superior area of labia majora and periurethra., normal Bartholin's glands, urethra, [place]'s glands, no vulvar lesions, no cervical lesions, good vaginal support, large amoutn of vaginal discharge, yellow and mucous, cervix nonfriable, normal appearing perineal body and perianal region BIMANUAL: uterus normal size, shape and consistency, no adnexal masses and non-tender RECTOVAGINAL: deferred. NEURO: alert and oriented x3,exam grossly non-focal EXTREMITIES: normal ASSESSMENT/PLAN: 1) Health maintenance: Pap/HPV screening no longer needed Mammogram ordered vulvar irritation and lesions. Vaginal swab done for trich/GC/CT to be thorough. Will need vulvar biopsy. Suspicious for lichen planus. 2) Follow up one year or sooner as needed Jewell Abarca MD [facility] 02-23-2022 History of Present illness Narrative Americo is a 67 year old who presents for an annual gynecologic exam with complaints, occas vuvlar pruritis/irritation. . Was better after steroid and vaginal cream for BV last year but flares up. No bleeding. Postmenopausal: yes HRT use: No. Last Pap: 12/17/2019 normal HPV: 12/16/2019 negative History of abnormal pap: remotely Last mammogram: 2019 normal History of abnormal mammogram: No Sexually active: Yes OB History T0 L2 SAB0 IAB0 Ectopic0 Multiple0 Live Births0 Comment: 2 vaginal deliveries [employer] History LMP: Postmenopausal Age at Menarche: Age at First : Age at Menopause: [employer] History Comments: Sexual Activity: Yes; No partner data on record; Postmenopusal Contraception: Tubal Ligation PAST MEDICAL HISTORY Diagnosis Date Abnormal pap 11/25/2011 Arthritis Cervical high risk HPV (human papillomavirus) test positive 11/25/2011 Diverticulitis Hypertension PAST SURGICAL HISTORY Procedure Laterality Date COLONOSCOPY 04/2016 COLPOSCOPY CERVIX UPPER/ADJACENT VAGINA 2011 Colposcopy LIG/TRNSXJ FLP TUBE ABDL/VAG APPR UNI/BI FAMILY HISTORY Problem Relation Age of Onset Cancer Mother Heart Father Heart Sister Prostate Cancer Brother 50's Cancer Brother face SOCIAL HISTORY Social History Tobacco Use Smoking status: Never Smoker Smokeless tobacco: Never Used Vaping Use Vaping Use: Never used Substance Use Topics Alcohol use: No Drug use: No REVIEW OF SYSTEMS Abdomen: No abdominal pain, nausea, vomiting, diarrhea, or constipation. No bloating, early satiety, indigestion, or increased flatulence. Bladder: No dysuria, gross hematuria, urinary frequency, urinary urgency, or incontinence Breast: No breast lumps, nipple d/c, overlying skin changes, redness or skin retraction Allergies and current medication updated:Yes EXAM: Ht 5' 3.75 (1.62m) Wt 150 lb (68.0kg) BMI 25.96 kg/(m^2). GENERAL: pleasant, female in no apparent distress HEENT: Normocephalic, atraumatic, mucus membranes moist and no lesions NECK: Supple, full range of motion, no adenopathy and thyroid normal DERMATOLOGY: Normal, without lesions, non-icteric and non-hirsute BREAST: soft, non-tender, symmetric, no dominant mass, normal nipple-areolar complex, no lymphadenopathy and no nipple discharge CHEST: Normal inspiratory effort ABDOMEN: soft, non-tender and no masses PELVIC: external genitalia ww/ some erythema, ulcerated looking lesions on bilateral superior area of labia majora and periurethra., normal Bartholin's glands, urethra, [place]'s glands, no vulvar lesions, no cervical lesions, good vaginal support, large amoutn of vaginal discharge, yellow and mucous, cervix nonfriable, normal appearing perineal body and perianal region BIMANUAL: uterus normal size, shape and consistency, no adnexal masses and non-tender RECTOVAGINAL: deferred. NEURO: alert and oriented x3,exam grossly non-focal EXTREMITIES: normal ASSESSMENT/PLAN: 1) Health maintenance: Pap/HPV screening no longer needed Mammogram ordered vulvar irritation and lesions. Vaginal swab done for trich/GC/CT to be thorough. Will need vulvar biopsy. Suspicious for lichen planus. 2) Follow up one year or sooner as needed Jewell Abraca MD documented in this encounter [facility] 07-07-2021 Note HNO ID: [id number] Author: Jewell Abarca MD Service: ? Author Type: ? Type: Progress Notes Filed: 07/07/2021 12:01 PM Note Text: Americo Lees is a 66 year old female who presents for vaginal pruritis for several months.. She sexually active, no change in partners. She is never had anything like this before. She has had yeast infections in the past mostly associated with antibiotic use. It was several months ago that her primary care physician gave her Diflucan but that did not seem to help. She is tried [id number] Monistat suppositories and that did not help. She denies any new irritants. She does not wear pads. She denies significant urinary incontinence. She does wear nylon underwear 24 hours a day. She denies any urinary issues. Past medical, surgical, social history, medications and allergies reviewed and updated. OBJECTIVE: BP 110/74 Wt 147 lb (66.7kg) GENERAL: Well developed, well nourished in no apparent distress PELVIC: Normal perineal body, normal mons pubis, normal hair distribution pattern, normal labia majora that are somewhat atrophic. Atrophic introitus. Normal-appearing urethral meatus. The periurethral area and labia minora have some erythema that is bright red, no raised lesions, no hyperpigmentation. No fissures. No thin white skin. No fusion of the skin. Vaginal epithelium is pale, atrophic with a few petechiae. There is physiological yellowish discharge. No significant cystocele or rectocele. Cervix is smooth and nonfriable. Normal perianal area BIMANUAL: uterus normal size, shape and consistency, no adnexal masses and non-tender. ASSESSMENT/PLAN: Vulvar pruritus and erythema. Contact dermatitis versus other issue. Yeast swab collected. Clinical suspicion for yeast infection is low. 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 May use antihistamines as needed for control of pruritus. Steroid taper. Return in 6 weeks. If not resolved or significantly improved we will do a biopsy at that time. Office Visit on 07/07/21 - rosuvastatin (CRESTOR) 10 mg tablet - hydroCHLOROthiazide (HYDRODIURIL, ESIDRIX) 12.5 mg tablet - pantoprazole DR (PROTONIX) 40 mg tablet Jewell Abarca MD [facility] documented as of this encounter (statuses as of 02/23/2022) [facility]03[facility] History of Past illness Narrative* Problem Noted Date Resolved Date ASCUS (atypical squamous yahir ls of undetermined significance) on Pap smear 01/11/2013 02/23/2022 documented as of this encounter (statuses as of 03/09/2022) [facility] History of Past illness Narrative* Problem Noted Date Resolved Date ASCUS (atypical squamous yahir ls of undetermined significance) on Pap smear 01/11/2013 02/23/2022 documented as of this encounter (statuses as of 03/09/2022) [facility] History of Past illness Narrative* Problem Noted Date Resolved Date ASCUS (atypical squamous yahir ls of undetermined significance) on Pap smear 01/11/2013 02/23/2022 documented as of this encounter (statuses as of 05/16/2022) [facility] Encounter for gynecological examination with abnormal finding- Primary Routine gynecological examination Encounter for screening mammogram for breast cancer Vulval lesion Other specified noninflammatory disorder of vulva and perineum [facility] Diagnosis Vulvar lesion- Primary Other specified noninflammatory disorder of vulva and perineum [facility] Diagnosis Vulvar irritation- Primary Other specified noninflammatory disorder of vulva and perineum [facility] Diagnostic Procedure Only (Routine) - Pending Review Specialty Diagnoses / Procedures Referred By Contoh t Referred To Contact [facility] Diagnoses Encounter for gynecological examination (general) (routine) without abnormal findings Encounter for screening mammogram for breast cancer Procedures DEVAUGHN SCREENING SCREENING MAMMOGRAPHY BI 2-VIEW BREAST INC CAD Jewell Abarca MD [address] [place] [address] [facility] [address] [place] [address] Referral ID Status Reason Start Date Expiration Date Visits Requested Visits Authorized [id number] Pending Review Auto-Generat ed Referral 02/23/2022 03/25/2023 1 1 [facility] Summary Purpose Family History No Family History Records Found Advance Directives No Advanced Directives Records Found Additional Source Comments Source Comments (unrecognize d section and content) In the event this informatio n is protected by the Federal Confidentiality of Alcohol and Drug Abuse Patient Records regulations: The Federal rules restrict any use of the information to criminally investigate or prosecute any alcohol or drug abuse patient.[facility] the event this information is protected by the Federal Confidentiality of Alcohol and Drug Abuse Patient Records regulations: The Federal rules restrict any use of the information to criminally investigate or prosecute any alcohol or drug abuse patient.[facility] the event this information is protected by the Federal Confidentiality of Alcohol and Drug Abuse Patient Records regulations: The Federal rules restrict any use of the information to criminally investigate or prosecute any alcohol or drug abuse patient.[facility] the event this information is protected by the Federal Confidentiality of Alcohol and Drug Abuse Patient Records regulations: The Federal rules restrict any use of the information to criminally investigate or prosecute any alcohol or drug abuse patient.[facility] Care Teams (unrecognized sec tion and content) [employer] Specialist Relationship Specialty Start Date End Date Maddy Beard PCP - General Family Practice 02/04/14 [employer] Specialist Relationship Specialty Start Date End Date Maddy Beard PCP - General Family Practice 02/04/14 [employer] Specialist Relationship Specialty Start Date End Date Maddy Beard PCP - General Family Practice 02/04/14 Reason for Visit (unrecogniz ed section and content) Reason Comments Patient Question Vulvar pain Reason Comments Follow Up from clobetasol INFORMATION SOURCE (unrecogn ized section and content) FOR RECORDS PERTAINING TO PATIENTS WHO ARE OR HAVE BEEN ENROLLED IN A CHEMICAL DEPENDENCY/SUBSTANCEABUSE PROGRAM, SOME INFORMATION MAY BE OMITTED. This clinical summary was aggregated from multiple sources. Caution should be exercised in using it in the provision of clinical care. This summary normalizes information from multiple sources, and as a consequence, information in this document may materially change the coding, format and clinical context of patient data. In addition, data may be omitted in some cases. CLINICAL DECISIONS SHOULD BE BASED ON THE PRIMARY CLINICAL RECORDS. [facility]. provides no warranty or guarantee of the accuracy or completeness of information in this document.
== END | disposition home or self-care (01) ==
LOC: MFPLAB 11:53
PROVIDERS: PCP Family Medicine; Visit Provider Family Medicine
DX: E78.00 Pure hypercholesterolemia, unspecified (principal); I10 Essential (primary) hypertension
CPT/HCPCS: 36415; 80048; 80061; 82043; 82570; 84450; 84460

== ENCOUNTER → 2024-10-01 | Outpatient (CLI) | payer MEDICARE, SELFPAY ==
--- NOTE | 2024-10-01 11:36 | RAD_ITS ---
EXAM: XR LUMBOSACRAL SPINE COMPLETE WITH FLEXION/EXTENSION, 6 OR MORE VIEWS CLINICAL INDICATION: left leg pain TECHNIQUE: Lateral, frontal, oblique and lateral flexion/extension views of the lumbar spine and sacrum. COMPARISON: CT abdomen and pelvis, 09/04/2015 FINDINGS: VERTEBRAE: Multilevel endplate osteophytosis and facet arthrosis. Preservation of the normal lumbar lordosis. No fracture or spondylolysis. No spondylolisthesis. DISC SPACES: Intervertebral disc height loss at multiple levels, worst at L4-L5 associated with vacuum phenomenon. SOFT TISSUES: Bilateral tubal ligation clips are present. VASCULATURE: Vascular calcifications. GASTROINTESTINAL TRACT: Normal as visualized. Included bowel gas pattern is non-obstructive. RAD/L/S Spine w Bend Min 6 Vw IMPRESSION: No fracture or spondylolysis. No spondylolisthesis. Degenerative changes. Electronically Signed: Paul Vences DO at 0:04 EST ,
== END | disposition home or self-care (01) ==
PROVIDERS: PCP Family Medicine; Referring Provider Family Medicine; Visit Provider Family Medicine
DX: M54.32 Sciatica, left side (principal)
CPT/HCPCS: 72114

== ENCOUNTER 2024-11-24 19:22 | Emergency (ER) | payer MEDICARE, SELFPAY ==
[2024-11-24 19:27] VITALS: BP 179/82; PULSE 98; RESP 17; TEMP 36.7; O2SAT 100; BMI 26.0
--- NOTE | 2024-11-24 19:42 | EKG12_ITS ---
Test Reason : PALPITATIONS Blood Pressure : */* mmHG Vent. Rate : 105 BPM Atrial Rate : 105 BPM P-R Int : 180 ms QRS Dur : 82 ms QT Int : 348 ms P-R-T Axes : 56 110 42 degrees QTcB Int : 459 ms Sinus tachycardia Right axis deviation Possible Right ventricular hypertrophy Abnormal ECG Confirmed by MAYRA BERTRAND, CARO ([id number]), clinical editor LUIS CARLOS HOLT ([id number]) on 11/25/2024 10:59:31 A M Referred By: SANFORD Confirmed By: CARO NUNEZ MD
--- NOTE | 2024-11-24 19:44 | EDS_ITS ---
HPI History of Present Illness Chief Complaint: Palpitations Informant: patient, spouse/S.O. and EMS Narrative Narrative: 69-year-old female presenting to the emergency room with a chief complaint of palpitations. Patient states that recently she has had difficulty controlling her blood pressure. She saw cardiology on 13 November and her hydrochlorothiazide was discontinued and she was started on losartan. She is scheduled for an echocardiogram later this month. She notes her blood pressure continues to be elevated. She is also taking metoprolol 100 mg once a day which she takes for fast heart rate. The patient states that tonight she went home from [place] ate dinner and had a sudden onset of chest palpitations. She stated that he felt like her heart was racing and she had discomfort in her chest. She states it is improved now. EMS EKG showed a sinus tachycardia. [facility] Medical History Dizziness Fatigue Gastroenteritis Vertigo Elevated cholesterol Osteopenia Non-organic sleep disorder Essential (primary) hypertension Palpitations Gastroenteritis Home Medications ?Medication ?Instructions ?Recorded ?Last Taken ?Type aspirin 81 mg tablet,delayed 81 mg PO DAILY 02/27/17 02/27/17 History release (Aspir-Low) multivitamin (Daily Multiple 1 ea PO DAILY 06/15/18 Unknown History tablet) zolpidem 5 mg tablet 5 mg PO QHS PRN PRN Sleep 06/15/18 Unknown History lubiprostone 8 mcg capsule 8 mcg PO QDAY 10/10/24 Unknown History (Amitiza) meclizine 25 mg tablet 25 mg PO TID-QID PRN 10/10/24 Unknown History metoprolol succinate 100 mg 100 mg PO QDAY 10/10/24 Unknown History tablet,extended release 24 hr pantoprazole 40 mg tablet,delayed 40 mg PO QDAY 10/10/24 Unknown History release rosuvastatin 10 mg tablet (Crestor) 10 mg PO QDAY 10/10/24 Unknown History losartan 100 mg tablet 100 mg PO QDAY #90 tabs 11/13/24 Unknown Rx spironolactone 25 mg tablet 25 mg PO QDAY #30 tabs 11/21/24 Unknown Rx Allergy/AdvReac Type Severity Reaction Status Date / Time Sulfa (Sulfonamide Allergy Upset Verified 11/24/24 19:23 Antibiotics) Stomach Family History Sister Myocardial infarction Brother Myocardial infarction Father Myocardial infarction Surgical History Hx of tubal ligation Social History Smoking Status: Former smoker alcohol intake: never substance use type: does not use ROS ROS ED Constitutional Constitutional ED: Denies chills or weight loss Eyes Eyes: Denies change in vision or diplopia ENT ENT ED: Denies ear pain, rhinorrhea or sore throat Cardiovascular Cardiovascular: Reports palpitations and racing heartbeat; Denies chest pain or orthopnea Respiratory/Chest Respiratory/Chest: Denies cough, dyspnea or orthopnea Gastrointestinal Gastrointestinal: Denies abdominal pain, diarrhea, nausea or vomiting Genitourinary Genitourinary ED: Denies dysuria, hematuria or urinary frequency Musculoskeletal Musculoskeletal: Denies arthralgias or myalgias Integumentary Denies abscess or rash Neurologic Neurologic: Denies headache(s) or weakness Psychiatric Psychiatric: Denies anxiety, depression, suicidal ideation or suicidal thoughts Endocrine Endocrinology: Denies polydipsia, polyphagia or polyuria Allergic/Immunologic Allergic/Immunologic ED: Denies mouth swelling, tongue swelling or urticaria EXAM Physical Exam Const Vital Signs: 11/24/24 19:27 11/24/24 20:23 11/24/24 21:00 Temperature 98.1 F Temperature Source Oral Pulse Rate 98 95 78 Respiratory Rate 17 Blood Pressure 179/82 H 159/86 H 150/92 H Blood Pressure Mean 114 110 111 Pulse Ox 100 100 Oxygen Delivery Method Room Air 11/24/24 21:27 Temperature 97.9 F Temperature Source Pulse Rate 78 Respiratory Rate 18 Blood Pressure 150/92 H Blood Pressure Mean 111 Pulse Ox 99 Oxygen Delivery Method Positive well nourished and well developed General Appearance ED: well developed and NAD HEENT Reports normocephalic, head/scalp atraumatic and moist mucous membranes Eyes PERRL and EOMs intact bilaterally Neck no lymphadenopathy, supple and no JVD Resp normal respiratory effort and clear to auscultation bilaterally Cardio regular rate, regular rhythm and no murmurs GI normal to inspection, nondistended, normoactive bowel sounds and non-tender Palpation: soft Back/Spine no CVA tenderness and normal ROM Extremity normal to inspection General Extremety ED: Negative for edema General Extremity: Negative for edema Neuro oriented x3 and CN's II-XII intact bilaterally Sensorium / Orientation: alert Motor Exam: strength 5/5 throughout Psych mental status grossly normal Mood & Affect: anxious; Negative for depressed or tearful Skin no rashes or lesions noted and no wounds MDM MDM MDM Narrative Medical decision making narrative: Differential diagnosis includes but not limited to cardiac dysrhythmia electrolyte abnormalities anxiety anemia hypertension EKG demonstrates a sinus tachycardia with a ventricular rate of 105 bpm hemoglobin 13.4 white count of 8 platelets of 274. Magnesium 2.2 sodium potassium within normal limits TSH is 7.590. Patient's heart rate has come down on its own into the 80s. Blood pressures currently 150/92. I believe the patient can be discharged home. She should follow-up with primary care for the elevated TSH. She is going to follow-up with cardiology discussed her symptoms and get her echocardiogram that is scheduled for the end of the month History & Record Review Discussion w/independent historian: EMS personnel, Patient and Significant other Lab Data Attestation: I reviewed the patient's lab results. Labs: Laboratory Results - last 24 hr 11/24/24 19:44 WBC 8.0 RBC 4.38 Hgb 13.4 Hct 39.1 MCV 89.3 MCH 30.6 MCHC 34.3 RDW Std Deviation 41.0 RDW Coeff of Lara 12.5 Plt Count 274 MPV 8.9 Immature Gran % (Auto) 0.300 Neut % (Auto) 48.4 Lymph % (Auto) 36.8 Island % (Auto) 11.3 H Eos % (Auto) 2.6 Baso % (Auto) 0.6 Absolute Neuts (auto) 3.9 Absolute Lymphs (auto) 2.94 Nucleated RBC % 0 Sodium 140 Potassium 3.7 Chloride 108 H Carbon Dioxide 25.0 Anion Gap 7 BUN 18 Creatinine 0.88 Estim Creat Clear Calc 56.68 Est GFR (MDRD) Af Amer 82 Est GFR (MDRD) Non-Af 68 BUN/Creatinine Ratio 20.5 H Glucose 210 H Calcium 8.8 Magnesium 2.2 TSH 7.590 H Radiography Diagnostic Testing: Clinical Impression(s) from Imaging Studies Chest X-Ray 11/24/24 19:50 IMPRESSION: No radiographic evidence of acute cardiopulmonary disease. Electronically Signed: Abelardo D. Breckwoldt, MD at 20:25 EST , EKG Initial EKG: Attestation: I personally reviewed and interpreted this EKG as follows: Comments: sinus tachycardia with a ventricular rate of 105 bpm Discharge Plan Triage Chief Complaint: Palpitations ED Provider: Edinson Henao Dx/Rx/DC Orders Clinical Impression: Palpitations, Essential (primary) hypertension, Increased thyroid stimulating hormone (TSH) level Instructions: ED High Blood Pressure Hypertension, ED Palpitations Prescriptions: No Action metoprolol succinate 100 mg tablet extended release 24 hr 100 mg PO QDAY meclizine 25 mg tablet 25 mg PO TID-QID PRN rosuvastatin [Crestor] 10 mg tablet 10 mg PO QDAY lubiprostone [Amitiza] 8 mcg capsule 8 mcg PO QDAY pantoprazole 40 mg tablet,delayed release (DR/EC) 40 mg PO QDAY losartan 100 mg tablet 100 mg PO QDAY Qty: 90 3RF aspirin [Aspir-Low] 81 MG tablet,delayed release (DR/EC) 81 mg PO DAILY multivitamin [Daily Multiple] 1 EACH tablet 1 ea PO DAILY zolpidem 5 MG tablet 5 mg PO QHS PRN PRN (Reason: Sleep) Patient Comments: TAKE 1 TABLET BY MOUTH AT BEDTIME NEEDED FOR SLEEP spironolactone 25 mg tablet 25 mg PO QDAY Qty: 30 11RF Primary Care Provider: Maddy Beard Referrals: Maddy Beard MD [Primary Care Provider] - As soon as possible Adrian Ty MD [Med Staff - Active Staff] - Keep Raciel appointment Activity Restrictions/Additional Instructions: As we discussed your thyroid-stimulating hormone was elevated today. Please discuss this with your primary care doctor Please continue your cardiac medications. Please get the ultrasound that is ordered for your heart. Follow-up with cardiology. As we discussed your symptoms may return in may necessitate a repeat emergency visit. Print Language: Indonesian Disposition Disposition: Home, Self Care
--- NOTE | 2024-11-24 19:50 | RAD_ITS ---
EXAM: XR CHEST, 1 VIEW CLINICAL INDICATION: chest pain TECHNIQUE: Frontal view of the chest. COMPARISON: 11/08/2019 FINDINGS: LUNGS AND PLEURAL SPACES: Unremarkable. No consolidation or edema. No pneumothorax. No effusion. HEART: Unremarkable. Cardiac silhouette not enlarged. MEDIASTINUM: Central airways and mediastinal contour are unremarkable. BONES/JOINTS: Unremarkable. No acute fracture. SOFT TISSUES: Unremarkable. RAD/Chest 1 View (Portable) IMPRESSION: No radiographic evidence of acute cardiopulmonary disease. Electronically Signed: Abelardo Mai MD at 20:25 EST ,
[2024-11-24] MEDS: Aspirin 81 MG TAB.CHEW 324 MG PO (19:53)
[2024-11-24 19:55] LABS: Absolute Lymphocyte Count 2.94 X10^3/uL (0.83-4.51); Absolute Neutrophil Count 3.9 X10^3/uL (2.0-7.7); Basophil# 0.05 X10^3/uL; Basophil% 0.6 % (0-1); Eosinophil# 0.21 X10^3/uL; Eosinophils% 2.6 % (0-5); Hematocrit 39.1 % (37-47); Hemoglobin 13.4 g/dL (12.0-15.0); Lymphocyte # 2.94 X10^3/ul (0.83-4.51); Lymphocyte % 36.8 % (19-41); Mean Corp Hgb Conc 34.3 g/dL (32-36); Mean Corpuscular Hgb 30.6 pg (27.0-32.0); Mean Corpuscular Volume 89.3 fL (81-99); Mean Platelet Vol. 8.9 fl (6.2-12.0); Monocyte% 11.3 % (0-10); NRBC Flagged by Analyzer 0 % (0-5); Neutrophil # 3.86 X10^3/uL (2.7-7.7); Neutrophil % 48.4 % (47-70); Platelet Count 274 K/mm3 (150-450); RBC Distribution Width CV 12.5 % (11.6-14.6); Red Blood Count 4.38 M/mm3 (4.2-5.4)
[2024-11-24 20:21] LABS: Anion Gap 7 (5-15); BUN 18 mg/dL (7-18); BUN/Creat Ratio 20.5 RATIO (10-20); Calcium,Total 8.8 mg/dL (8.5-10.1); Chloride 108 mmol/L (98-107); Creatinine, Serum 0.88 mg/dL (0.55-1.02); EST Glomerular Filtration Rate 68 mL/min (>60); Est Glom Filt Rate - Afr Amer 82 mL/min (>60); Estimated Creatinine Clearance 56.68 ml/min; Glucose 210 mg/dL (74-106); Magnesium 2.2 mg/dL (1.6-2.6); Potassium 3.7 mmol/L (3.5-5.1); Sodium Level 140 mmol/L (136-145)
[2024-11-24 20:23] VITALS: BP 159/86; PULSE 95; O2SAT 100
[2024-11-24 21:00] VITALS: BP 150/92; PULSE 78
[2024-11-24 21:27] VITALS: BP 150/92; PULSE 78; RESP 18; TEMP 36.6; O2SAT 99
== END 2024-11-24 21:35 | disposition home or self-care (01) ==
PROVIDERS: Emergency Provider Emergency Medicine; PCP Family Medicine; Visit Provider Emergency Medicine
DX: R00.2 Palpitations (principal); E78.00 Pure hypercholesterolemia, unspecified; I10 Essential (primary) hypertension; Z79.82 Long term (current) use of aspirin; Z79.899 Other long term (current) drug therapy; Z87.891 Personal history of nicotine dependence
CPT/HCPCS: 71045; 80048; 83735; 84443; 85025; 93005; 99285; A4216

== ENCOUNTER → 2024-12-02 | Outpatient (CLI) | payer MEDICARE, SELFPAY ==
--- NOTE | 2024-12-02 12:42 | ECHOD_ITS ---
Reason For Study: HYPERTENSION Procedure This was a 2D Doppler, Color Flow transthoracic echocardiogram. Exam performed in department. Left Ventricle Normal left ventricle. Left ventricular systolic function is normal. The left ventricular ejection fraction is 65 %. No regional wall motion abnormalities noted. Right Ventricle Normal RV size. Normal systolic function. Atria Normal left atrium. Normal right atrium. Mitral Valve Normal mitral valve. Tricuspid Valve Normal tricuspid valve. Mild tricuspid valve insufficiency. Pulmonary artery systolic pressure is 22 mmHg. Aortic Valve Trisinus/trileaflet aortic valve. Mild (1+) aortic valve insufficiency. Pulmonic Valve Normal pulmonic valve. Great Vessels Normal aortic root. The pulmonary artery is normal size. Inferior vena cava collapse with respiration. Pericardium/Pleural No pericardial effusion. MMode/2D Measurements & Calculations LVIDd: 4.0 cm IVSd: 1.0 cm LVOT diam: 1.9 cm LVIDs: 2.3 cm LVPWd: 0.94 cm LVOT area: 2.9 cm2 RVDd: 2.5 cm FS: 41.9 % asc Aorta Diam: 3.0 cm LAV(MOD-bp): 23.8 ml LVAd ap4: 15.2 cm2 LAV(MOD-bp) Indexed: 14.3 ml/m2 LVLd ap4: 6.5 cm LAV(MOD-sp2): 24.1 ml EDV(MOD-sp4): 29.6 ml LAV(MOD-sp4): 23.1 ml EDV(sp4-el): 30.4 ml LVAs ap4: 8.2 cm2 LVLs ap4: 5.0 cm ESV(MOD-sp4): 11.2 ml ESV(sp4-el): 11.2 ml EF(MOD-sp4): 62.2 % EF(sp4-el): 63.1 % LVAd ap2: 16.7 cm2 SV(MOD-sp4): 18.4 ml SV(MOD-sp2): 21.0 ml LVLd ap2: 7.0 cm SI(MOD-sp4): 11.1 ml/m2 SI(MOD-sp2): 12.6 ml/m2 EDV(MOD-sp2): 32.8 ml EDV(sp2-el): 33.8 ml LVAs ap2: 9.1 cm2 LVLs ap2: 6.1 cm ESV(MOD-sp2): 11.8 ml ESV(sp2-el): 11.4 ml EF(MOD-sp2): 64.0 % SV(sp4-el): 19.1 ml Ao sinus diam: 2.[address] Junction: 2.1 cm LA dimension(2D): 3.3 cm LA A4 area: 11.2 cm2 RA A4 area: 6.2 cm2 TAPSE: 2.1 cm Time Measurements MV dec time: 0.13 sec Doppler Measurements & Calculations MV E max shalom: 71.6 cm/sec Lat Peak E' Shalom: 10.9 cm/sec Med Peak E' Shalom: 7.9 cm/sec MV A max shalom: 84.8 cm/sec E/E' lat: 6.6 E/E' med: 9.1 MV E/A: 0.84 MV dec slope: 554.6 cm/sec2 Ao V2 max: 119.4 cm/sec AI max shalom: 383.7 cm/sec Ao max P.7 mmHg AI max P.9 mmHg Ao V2 mean: 84.4 cm/sec AI dec slope: 203.6 cm/sec2 Ao mean P.2 mmHg AI P1/2t: 551.9 msec Ao V2 VTI: 26.3 cm AV (velocity ratio): 0.71 NITA(I,D): 2.0 cm2 NITA(V,D): 2.0 cm2 LV V1 max: 81.9 cm/sec SV(LVOT): 53.2 ml PA V2 max: 105.7 cm/sec LV V1 max P.7 mmHg LV V1 mean P.5 mmHg LV V1 mean: 56.7 cm/sec LV V1 VTI: 18.6 cm TR max shalom: 212.3 cm/sec TR max P.0 mmHg ECHO/Echo Complete Interpretation Summary Normal left ventricle. Left ventricular systolic function is normal. The left ventricular ejection fraction is 65 %. Mild (1+) aortic valve insufficiency. Pulmonary artery systolic pressure is 22 mmHg. Ordering Physician: Adrian Ty Referring Physician: Maddy Beard M.D. Performed By: Anna Lin RDCS
== END | disposition home or self-care (01) ==
PROVIDERS: PCP Family Medicine; Referring Provider Internal Medicine Cardiovascular Disease; Visit Provider Internal Medicine Cardiovascular Disease
DX: I10 Essential (primary) hypertension (principal); R94.31 Abnormal electrocardiogram [ECG] [EKG]
CPT/HCPCS: 93306

== ENCOUNTER → 2025-01-03 | Outpatient (CLI) | payer MEDICARE, SELFPAY | END | disposition home or self-care (01) | LOC: MFPLAB 11:08 | PROVIDERS: PCP Family Medicine; Referring Provider Family Medicine; Visit Provider Family Medicine | DX: E03.9 Hypothyroidism, unspecified (principal) | CPT/HCPCS: 36415; 84443 ==

== ENCOUNTER → 2025-02-18 | Outpatient (CLI) | payer MEDICARE, SELFPAY ==
[2025-02-18 18:30] LABS: Absolute Neutrophil Count 3.7 X10^3/uL (2.0-7.7); Basophil# 0.05 X10^3/uL; Basophil% 0.6 % (0-1); Eosinophil# 0.24 X10^3/uL; Eosinophils% 3.1 % (0-5); Hematocrit 40.2 % (37-47); Hemoglobin 13.5 g/dL (12.0-15.0); Lymphocyte % 39.8 % (19-41); Mean Corp Hgb Conc 33.6 g/dL (32-36); Mean Corpuscular Volume 89.3 fL (81-99); Mean Platelet Vol. 9.7 fl (6.2-12.0); Monocyte# 0.73 X10^3/uL; Monocyte% 9.4 % (0-10); NRBC Flagged by Analyzer 0 % (0-5); Neutrophil # 3.65 X10^3/uL (2.7-7.7); Neutrophil % 46.8 % (47-70); Platelet Count 264 K/mm3 (150-450); RBC Distribution Width CV 12.3 % (11.6-14.6); RBC Distribution Width SD 40.5 fl (35.1-43.9); White Blood Count 7.8 K/mm3 (4.4-11.0)
[2025-02-18 19:23] LABS: Erythrocyte Sedimentation Rate 10 mm/hr (0-30)
== END | disposition home or self-care (01) ==
LOC: MFPLAB 16:06
PROVIDERS: PCP Family Medicine; Referring Provider Family Medicine; Visit Provider Family Medicine
DX: J32.9 Chronic sinusitis, unspecified (principal)
CPT/HCPCS: 36415; 85025; 85652

== ENCOUNTER → 2025-06-24 | Outpatient (CLI) | payer MEDICARE, SELFPAY | END | disposition home or self-care (01) | LOC: MFPLAB 11:57 | PROVIDERS: PCP Family Medicine; Referring Provider Family Medicine; Visit Provider Family Medicine | DX: E03.9 Hypothyroidism, unspecified (principal) | CPT/HCPCS: 36415; 84443 ==

== ENCOUNTER → 2025-07-24 | Outpatient (CLI) | payer MEDICARE, SELFPAY ==
--- NOTE | 2025-07-24 18:40 | CT_ITS ---
PROCEDURE: ABDOMEN/PELVIS WITHOUT CONT 07/24/2025 REASON FOR EXAM: ABDOMINAL PAIN Several month history of diffuse abdominal pain. TECHNIQUE: Procedure Code: CTABDPEL Modality: CT Procedure: ABDOMEN/PELVIS WITHOUT CONT Noncontrast technique limits evaluation of the abdominal and pelvic viscera. Coronal and Sagittal reconstruction series were provided. One or more dose reduction techniques were used (e.g., Automated exposure control, adjustment of the mA and/or kV according to patient size, use of iterative reconstruction technique). RADIATION DOSE SUMMARY: CTDlvol: 6.36 mGy DLP: 317.92 mGycm COMPARISON: None FINDINGS: Lung bases: The lung bases are clear. Liver: Normal size. No obvious mass. Gallbladder: Unremarkable Spleen: Normal size. Pancreas: Normal size. No surrounding inflammation. Adrenals: Adrenal glands are unremarkable. Kidneys: No urolithiasis. No hydronephrosis. Bladder: Unremarkable Reproductive Organs: Atrophy of the uterus in keeping with the patient's age. Bowel: Colonic diverticulosis without diverticulitis. Appendix: The appendix is not identified. There is no inflammatory process identified in the right lower quadrant to suggest appendicitis. Lymph nodes: Unremarkable. Vasculature: Mild diffuse atherosclerotic calcifications are noted. Peritoneum / Retroperitoneum: Unremarkable Bones: Disc space narrowing at the L4-L5 level. Loss of the normal lumbar lordosis. CT/Abdomen/Pelvis without Cont IMPRESSION: Sigmoid diverticulosis. No acute abnormality is seen. Reading Location: [place] [id number]
== END | disposition home or self-care (01) ==
PROVIDERS: PCP Family Medicine; Referring Provider Family Medicine; Visit Provider Family Medicine
DX: R10.9 Unspecified abdominal pain (principal)
CPT/HCPCS: 74176

== ENCOUNTER → 2025-08-26 | Outpatient (CLI) | payer MEDICARE, SELFPAY ==
--- OUTSIDE RECORDS SUMMARY | 2025-08-26 19:32 | XMS RPT_ITS | CCD ---
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 Maddy Hutton Primary Care Provider Dr. Maddy Beard MD Attending Provider Dr. Maddy Beard MD Referring Provider Dr. Adrian Ty MD Attending Provider Dr. Edinson Henao DO Attending Provider Dr. Edinson Henao DO Emergency Provider Dr. Adrian Ty MD Referring Provider Dr. Maddy Beard MD Primary Care Provider Dr. Maddy Beard MD Referring Provider Dr. Maddy Beard MD Attending Provider Dr. Maddy Beard MD Primary Care Provider Dr. Maddy Beard MD Referring Provider Bijan CARR-CSatya Attending Provider Jorge Lopez MD Primary Care Provider Dr. Maddy Beard MD Referring Provider Bijan TECHNICAL SUPPORT SPECIALIST-CSatya Referring Provider Dr. Adrian Ty MD Attending Provider Karson BERTRAND, Dr. Campbell Referring Provider Jorge Lopez MD Attending Provider [phone] Jorge Lopez MD Referring Provider Roof TECHNICAL SUPPORT SPECIALIST-C, Satya Grajeda Attending Physician Jorge Lopez MD Primary Care Physician [phone] Karson BERTRAND, Dr. Campbell Attending Physician Jorge Lopez MD Attending Physician [phone] Edinson Henao Attending Unavailable Jolliff, Maddy S Primary Care Unavailable Karson, [place] Attending Unavailable Karson, Adrian Referring Unavailable Jessica, Chalon Primary Care Unavailable Jessica, Chalon Attending Unavailable Jessica, Chalon Referring Unavailable Jessica, Chalon Primary Care Unavailable Jolliff, Maddy S Attending Unavailable Jolliff, Maddy S Referring Unavailable Jolliff, Maddy S Primary Care Unavailable Jolliff, Maddy S Attending Unavailable Jolliff, Maddy S Referring Unavailable Jolliff, Maddy S Primary Care Unavailable Jessica, Chalon Primary Care Unavailable Jessica, Deandraon Attending Unavailable Jessica, Chalon Referring Unavailable Jolliff, Maddy S Referring Unavailable Roof TECHNICAL SUPPORT SPECIALIST, Satya H Attending Unavailable Jessica, Chalon Primary Care Unavailable Karson, Adrian Attending Unavailable Karson, Adrian Referring Unavailable Jolliff, Maddy S Primary Care Unavailable Roof TECHNICAL SUPPORT SPECIALIST, Satya H Attending Unavailable Roof TECHNICAL SUPPORT SPECIALIST, Satya H Referring Unavailable Jessica, Chalon Primary Care Unavailable Jolliff, Maddy S Primary Care Unavailable Karson, Adrian Attending Unavailable Jolliff, Maddy S Referring Unavailable Jolliff, Maddy S Primary Care Unavailable Jolliff, Maddy S Attending Unavailable Jolliff, Maddy S Referring Unavailable Jolliff, Maddy S Primary Care Unavailable Karson, Adrian Attending Unavailable Karson, [place] Referring Unavailable Allergies Allergy Classification Reported Allergen(s) Allergy Type Date of Onset Reaction(s) Facility (9 sources) Sulfacetamide; Translations: [SULFACETAMIDE] Drug Allergy 12-20-19 12 GI Upset [facility] Work Phone: (8 sources) Sulfonamides (Antibiotic) Allergy to substance 11-08-[address] [facility] (5 sources) Spironolactone Drug Allergy 11-26-19 25 Pt. states tachycardia and palpitations [facility] (1 source) Spironolactone Drug Allergy 04-21-20 [facility] (1 source) Sulfonamides (Antibiotic) Drug allergy (disorder) 04-21-20 [facility] Medications Current Medications Medication Drug Class(es) Dates Sig (Normalized) Sig (Original) aspirin 81 mg delayed release oral tablet (16 sources) Platelet Aggregation Inhibitor, Nonsteroidal Anti-inflammatory Drug Start: 12-20-2011 take 1 tablet by mouth once daily Comment on above: Take 1 tablet by [facility] once daily. clobetasol propionate 0.0005 mg/mg topical ointment (6 sources) Corticosteroid Start: 03-15-2022 End: 05-08-2024 clobetasol (TEMOVATE) 0.05 % ointment Apply 1 application to affected area as directed. pea-sized amount to vulvar area bid x 4 weeks, daily x 4 weeks then every other day for 4 weeks 45 g 0 05/08/2024 Active Comment on above: Apply 1 application to affected area as directed. pea-sized amount to vulvar area bid x 4 weeks, daily x 4 weeks then every other day for 4 weeks cloNIDine hydrochloride 0.1 mg oral tablet (5 sources) Central alpha-2 Adrenergic Agonist Start: 12-03-2024 take 1 tablet by mouth twice daily levothyroxine sodium 0.05 mg oral tablet (5 sources) l-Thyroxine Start: 12-03-2024 take 1 tablet by mouth once daily lubiprostone 0.008 mg oral capsule (13 sources) Chloride Channel Activator Start: 10-10-2024 take 1 capsule by mouth once daily Start: 11-01-2019 take 1 capsule by [facility] twice daily AMITIZA 8 mcg capsule Take 8 mcg by mouth twice daily. 0 11/01/2019 Active Comment on above: Take 8 mcg by mouth twice daily. meclizine hydrochloride 25 mg oral tablet (5 sources) Antiemetic Start: 10-10-2024 take 1 tablet by mouth three to four times daily as needed 24 hr metoprolol succinate 100 mg extended release oral tablet (20 sources) beta-Adrenergic Sunny Start: 10-10-2024 take 1 tablet by mouth once daily Start: 03-19-2024 take 1 tablet by mouth once me toprolol succinate ER (TOPROL XL) 100 mg Take 1 tablet by mouth every afternoon. 0 03/19/2024 Active Start: 02-27-2017 End: 10-10-2024 take 1 tablet by mouth once daily Metoprolol Succinate (Toprol Xl) 25 MG tablet extended release 24 hr Discontinued 25 mg PO DAILY February 27, 2017 12:00am October 10, 2024 3:17pm take 1 tablet by janie th twice daily metoprolol tartrate, short acting, 25 mg tablet Take 25 mg by mouth twice daily. 0 Active Comment on above: Take 25 mg by mouth twice daily. Multivitamin (Daily Multiple Vitamin) 1 EACH tablet (8 sources) Start: 06-15-2018 take 1 tablet by mouth once daily Start: 06-15-2018 take 1 tablet by janie th once daily Multivitamin (Daily Multiple Vitamin) 1 EACH tablet Active 1 NMA PO DAILY June 15, 2018 12:00am Start: 06-15-2018 take 1 tablet by janie th once daily Multivitamin (Daily Multiple Vitamin) 1 EACH tablet Active 1 EACH PO DAILY June 14, 2018 11:00pm Start: 06-15-2018 take 1 tablet by janie th once daily Multivitamin (Daily Multiple Vitamin) 1 EACH tablet Active 1 EACH PO DAILY June 15, 2018 12:00am sm-GS-NJ-Cl-Shj-Cpvcpqb-Lute in (CENTRUM) 0.4-162-18 mg ORAL Tab (8 sources) Start: 12-20-2011 take 1 tablet by mouth once daily xr-BC-VN-Wd-Swb-[place]-Lutein (CENTRUM) 0.4-162-18 mg ORAL Tab Take 1 tablet by mouth once daily. 0 12/20/2011 Active Comment on above: Take 1 tablet by janie th once daily. pantoprazole 40 mg delayed release oral tablet (13 sources) Aryan n Pump Inhib itor Start: 10-10-2024 take 1 tablet by mouth once daily Start: 06-09-2021 take 1 tablet by janie th once daily before breakfast pantoprazole DR (PROTONIX) 40 mg tablet TAKE 1 TABLET BY MOUTH ONCE DAILY IN THE MORNING BEFORE BREAKFAST 0 06/09/2021 Active Comment on above: TAKE 1 TABLET BY JANIE TH ONCE DAILY IN THE MORNING BEFORE BREAKFAST rosuvastatin calcium 10 mg oral tablet (13 sources) HMG-CoA Reductase Inhibitor Start: 10-10-2024 take 1 tablet by mouth once daily Start: 04-09-2021 take 1 tablet by janie th once daily rosuvastatin (CRESTOR) 10 mg tablet Take 10 mg by mouth once daily. 0 04/09/2021 Active Comment on above: Take 10 mg by mouth once daily. zolpidem tartrate 5 mg oral tablet (16 sources) gamma-Aminobutyric Acid-ergic Agonist Start: 12-20-2011 take 1 tablet by mouth at bedtime as needed for sleep Comment on above: Take 1 tablet by janie th at bedtime as needed. FOR INSOMNIA Completed/Discontinued Medications Medication Drug Class(es) Dates Sig (Normalized) Sig (Original) esomeprazole 20 mg delayed release oral capsule (3 sources) Proton Pump Inhibitor esomeprazole (NEXIUM ) 20 mg capsule Take 20 mg by mouth. 0 Active Comment on above: Take 20 mg by mouth. fluocinolone acetonide 0.31956 mg/mg topical ointment (3 sources) Corticosteroid Start: 07-07-20 fluocinolone (SYNALAR) 0.025 % ointment Apply to affected area as directed. APPLY pea-sized amount to vulva TIMES DAILY FOR 2 WEEKS THEN TWICE A DAY FOR TWO WEEKS THEN ONCE A DAY FOR 2 weeks 60 g 0 07/07/2021 Active Comment on above: Apply to affected ar ea as directed. APPLY pea-sized amount to vulva TIMES DAILY FOR 2 WEEKS THEN TWICE A DAY FOR TWO WEEKS THEN ONCE A DAY FOR 2 weeks hydroCHLOROthiazide 12.5 mg oral tablet (13 sources) Thiazide Diuretic Start: 10-10-20 End: 11-13-19 25 take 1 tablet by mouth once daily Hydrochlorothiazide 12.5 mg tablet Discontinued 12.5 mg PO daily October 10, 2024 1:00am November 13, 2024 2:29pm Start: 06-22-2021 take 1 tablet by janie th once daily hydroCHLOROthiazide (HYDRODIURIL, ESIDRIX) 12.5 mg tablet Take 12.5 mg by mouth once daily. 0 06/22/2021 Active Comment on above: Take 12.5 mg by mout h once daily. losartan potassium 100 mg oral tablet (10 sources) Angiotensin 2 Receptor Sunny Start: 12-03-2024 End: 04-21-2025 Losartan 100 mg tablet Discontinued 50 mg PO daily 90 3 Keli 28th, 2025 3:19pm April 21, 2025 9:23am Start: 11-13-2024 End: 12-03-2024 take 1 tablet by mouth once daily Losartan 100 mg tablet Discontinued 100 mg PO daily 90 3 November 13, 2024 1:00am December 03, 2024 3:20pm promethazine hydrochloride 25 mg oral tablet (8 sources) Phenothiazine Start: 02-27-2017 End: 10-10-2024 take 1 tablet by mouth every six hours as needed for nausea Promethazine 25 MG tablet Discontinued 25 mg PO EVERY 6 HOURS NEEDED as needed for Nausea 10 February 27, 2017 12:00am October 10, 2024 3:20pm spironolactone 25 mg oral tablet (5 sources) Aldosterone Antagonist Start: 11-21-2024 End: 11-26-2024 take 1 tablet by mouth once daily Spironolactone 25 mg tablet Discontinued 25 mg PO daily 30 November 21, 2024 1:00am November 26, 2024 9:37am Problems Active Problems Problem Classification Problem Date Documented Date Episodic/Chronic Abdominal pain (1 source) Unspecified abdominal pain; Translations: [Unspecified abdominal pain] Onset: 08-05-2025 Episodic Disorders of lipid metabolism (12 sources) Hypercholesterolemia; Translations: [Pure hypercholesterolemia, unspecified] Onset: 05-06-2025 10-10-2024 Chronic Essential hypertension (12 sources) Essential hypertension; Translations: [Essential (primary) hypertension] Onset: 05-06-2025 10-10-2024 Chronic Malaise and fatigue (9 sources) Fatigue; Translations: [Other fatigue] Onset: 05-13-2025 10-10-2024 Episodic Miscellaneous mental health disorders (5 sources) Non-organic sleep disorder; Translations: [Sleep disorder not due to a substance or known physiological condition, unspecified] 10-10-2024 Chronic Noninfectious gastroenteritis (13 sources) Gastroenteritis; Translations: [Noninfective gastroenteritis and colitis, unspecified] 02-28-2017 Episodic Other aftercare (5 sources) Long-term current use of diuretic; Translations: [Encounter for therapeutic drug level monitoring] 11-21-2024 Episodic Other bone disease and musculoskeletal deformities (5 sources) Osteopenia; Translations: [Other specified disorders of bone density and structure, unspecified site] 10-10-2024 Episodic Other female genital disorders (2 sources) Lesion of vulva; Translations: [Other specified noninflammatory disorders of vulva and perineum] Episodic Other female genital disorders (1 source) Vulval irritation; Translations: [Other specified noninflammatory disorders of vulva and perineum] Episodic Other screening for suspected conditions (not mental disorders or infectious disease) (10 sources) Patient encounter status; Translations: [Encounter for screening mammogram for malignant neoplasm of breast] Onset: 05-08-2024 Episodic Other upper respiratory infections (1 source) Chronic sinusitis, unspecified; Translations: [Chronic sinusitis, unspecified] Onset: 02-24-2025 Chronic Thyroid disorders (1 source) Hypothyroidism, unspecified; Translations: [Hypothyroidism, unspecified] Onset: 07-03-2025 Chronic Past or Other Problems Problem Classification Problem Date Documented Da te Episodic/Chronic Cardiac dysrhythmias (20 sources) Tachycardia; Translations: [Tachycardia, unspecified] Onset: 01-11-2013 01-11-2013 Episodic Conditions associated with dizziness or vertigo (11 sources) Dizziness; Translations: [Dizziness and giddiness] Onset: 11-13-2024 10-10-2024 Episodic Spondylosis; intervertebral disc disorders; other back problems (1 source) Sciatica, left side; Translations: [Sciatica, left side] Onset: 10-28-2024 Episodic Unclassified (3 sources) Abnormal cytology findings; Translations: [ASCUS (atypical squamous cells of undetermined significance) on Pap smear] Onset: 01-11-2013 Resolved: 02-23-2022 02-23-2022 Results Test Name Value Interpretation Reference Range Facility Abdomen/Pelvis without Conto n 07-24-2025 Abdomen/Pelvis without Cont [facility] Imaging Services [address] [place] [id number] Abdomen/Pelvis without Cont MR#: [id number] Acct: [id number] Name: AMERICO LEES Rep #: [id number] : 1955 F 70 From: Maxwell dickey MD PCP: Dr. Jorge Lopez MD Status: REG CLI Study: Abdomen/Pelvis without Cont Date of Exam: 07/07 06/30 Exam# [id number] Ordering Dr: Jorge Lopez MD PROCEDURE: ABDOMEN/PELVIS WITHOUT CONT 07/24/2025 REASON FOR EXAM: ABDOMINAL PAIN Several month history of diffuse abdominal pain. TECHNIQUE: Procedure Code: CTABDPEL Modality: CT Procedure: ABDOMEN/PELVIS WITHOUT CONT Noncontrast technique limits evaluation of the abdominal and pelvic viscera. Coronal and Sagittal reconstruction series were provided. One or more dose reduction techniques were used (e.g., Automated exposure control, adjustment of the mA and/or kV according to patient size, use of iterative reconstruction technique). RADIATION DOSE SUMMARY: CTDlvol: 6.36 mGy DLP: 317.92 mGycm COMPARISON: None FINDINGS: Lung bases: The lung bases are clear. Liver: Normal size. No obvious mass. Gallbladder: Unremarkable Spleen: Normal size. Pancreas: Normal size. No surrounding inflammation. Adrenals: Adrenal glands are unremarkable. Kidneys: No urolithiasis. No hydronephrosis. Bladder: Unremarkable Reproductive Organs: Atrophy of the uterus in keeping with the patient's age. Bowel: Colonic diverticulosis without diverticulitis. Appendix: The appendix is not identified. There is no inflammatory process identified in the right lower quadrant to suggest appendicitis. Lymph nodes: Unremarkable. Vasculature: Mild diffuse atherosclerotic calcifications are noted. Peritoneum / Retroperitoneum: Unremarkable Bones: Disc space narrowing at the L4-L5 level. Loss of the normal lumbar lordosis. CT/Abdomen/Pelvis without Cont IMPRESSION: Sigmoid diverticulosis. No acute abnormality is seen. Reading Location: [place] [address] CC: Dr. Jorge Lopez MD Banking Management Consulting Manager: Signed Normal [facility] TSH DL <= 0.005 mIU/L QnOrde red By: Jorge Lopez on 06-24-2025 TSH Qn 1.780 uIU/mL 0.300-4.200 [facility] Thyroid Stim Hormone (TSH)on 06-24-2025 TSH 1.780 uIU/mL Normal 0.300-4.200 [facility] Comment on above: Order Comment: Order Date: 06/24/25Order Info: [id number] - TSH Performed By: #### L [id number] ####[facility] [id number] [place], [address] Coronary Angiography CTon Coronary Angiography CT [facility] Imaging Services [address] [place] [address] 05/06/25 1710 MR#: [id number] Acct: [id number] Name: AMERICO LEES Rep #: [id number] : 1955 70 From: Adrian Ty MD PCP: Dr. Jorge Lopez MD Status:REG REF Y Location: CT Calcium Scoring Date of Study:: 05/06/25 Coronary Calcium Scoring: High-resolution Computed Tomographic imaging of the chest was performed on [ ], with particular attention paid to the coronary arteries. Images from the examination were analyzed for the presence and extent of coronary artery calcification , using coronary calcium quantification software. The patient tolerated the procedure well and there were no complications. The results of the coronary calcification analysis are provided below. Findings Coronary Artery Left Main (LM): 0 Left Anterior Descending (LAD): 113 Left Circumflex (LCX): 31.4 Right Coronary Artery (RCA): 0 Total Agatston Score: 144.4 Percentile Rankin-75% Calcium Scoring Interpretation: Different methods to categorize the overall amount of coronary plaque. Overall amount CAC SIS Visual of coronary plaque P1 Mild -100 <2 1-2 vessels with mild amount of plaque P2 Moderate 101-300 3-4 1-2 vessels with moderate amount, 3 vessels with mild amount of plaque P3 Severe 301-999 5-7 3 vessels with moderate amount, 1 vessel with severe amount of plaque P4 Extensive >1000 >8 2-3 vessels with severe amount of plaque Calcium Score: Mild: 1-2 vessels w/mild amount of plaque Conclusion: Mild 1-2 vessel atherosclerotic plaque 05/06/25 1712 Date Adrian Ty MD Cosigner Signature (if applicable): Date CC: JOSELUIS Thakkar; Dr. Jorge Lopez MD; Dr. Adrian Ty MD Signed Normal [facility] Limited Chest CT Cardiac Onl yon 05-06-[address] Cardiac Only [facility] Imaging Services [address] [place] [address] Cardiac Only MR#: [id number] Acct: [id number] Name: AMERICO LEES Rep #: [id number] : 1955 F 70 From: [place] PCP: Dr. Jorge Lopez MD Status: REG REF Study: Limited Chest CT Cardiac Only Date of Exam: Exam# [id number] Ordering Dr: Satya Thakkar NP PROCEDURE: LIMITED CHEST CT CARDIAC ONLY 05/06/2025 REASON FOR EXAM: FAMILY HISTORY OF [place] TECHNIQUE: CT for coronary artery calcification. One or more dose reduction techniques were used (e.g., Automated exposure control, adjustment of the mA and/or kV according to patient size, use of iterative reconstruction technique). RADIATION DOSE SUMMARY: CTDlvol: 12.19 mGy DLP: 219.42 mGycm COMPARISON: None. CT/Limited Chest CT Cardiac Only IMPRESSION: Limited imaging of the lungs demonstrates no acute process. No pleural effusion or pneumothorax is seen in visualized areas. No adenopathy is noted. The visualized upper abdomen demonstrates no significant abnormality. Reading Location: [place] [address] CC: JOSELUIS Thakkar; Dr. Jorge Lopez MD Banking Management Consulting Manager: Signed Normal [facility] Cardiology Visit Reporton Cardiology Visit Report [facility] [address] [place] [address] OFFICE VISIT Date of Service: 04/21/25 MR#: [id number] Acct: [id number] Name: AMERICO LEES Rep #: [id number] : 1955 Provider: JOSELUIS loving Age/Sex: 70/F Location: [facility] Status: Signed HPI HPI History of Present Illness Details: Pleasant 70-year-old lady with a previous history of hypertension who says that she has had problems controlling her blood pressure. She denies chest, arm, jaw, or neck discomfort. She denies palpitations. She denies bilateral lower extremity edema. She denies claudication. She denies shortness of breath with activity, shortness of breath at rest, orthopnea, or PND. She denies chronic cough. She denies significant, sudden weight gain. She acknowledges lightheadedness. She denies dizziness, near-syncope, or syncope. She denies blood in urine, blood in stool, or epistaxis. He denies fever with chills. She denies myalgia. She states fatigue. Her exercise level has remained stable. Intake Vital Signs 11/13/24 12:58 11/24/24 19:27 04/21/25 09:19 Height 5 ft 4 in 5 ft 4 in 5 ft 4 in BP 143/81 H Blood Pressure Location Lt brachial Position Sitting Respiration 16 Pulse 77 Pulse Source Monitor Intake Visit Reasons: 5 M FU Water Filter Cleaner Required: No Accompanied by: Self Is patient in pain?: No Allergies Sulfa (Sulfonamide Antibiotics) Allergy (Verified 04/21/25 09:21) Upset Stomach spironolactone Adverse Reaction (Intermediate, Verified 04/21/25 09:21) Pt. states tachycardia and palpitations Medications ???Medication ???Instructions ???Recorded ???Confirmed ???Type aspirin 81 mg tablet,delayed 81 mg PO DAILY 02/27/17 04/21/25 H istory release (Aspir-Low) multivitamin (Daily Multiple 1 ea PO DAILY 06/15/18 04/21/25 Hi story tablet) zolpidem 5 mg tablet 5 mg PO QHS PRN PRN Sleep 06/15/18 11/24/24 History lubiprostone 8 mcg capsule 8 mcg PO QDAY 10/10/24 04/21/25 Hi story (Amitiza) meclizine 25 mg tablet 25 mg PO TID-QID PRN 10/10/2404/06 History metoprolol succinate 100 mg 100 mg PO QDAY 10/10/24 04/21/25 H istory tablet,extended release 24 hr pantoprazole 40 mg tablet,delayed 40 mg PO QDAY 10/10/24 04/21/25 H istory release rosuvastatin 10 mg tablet (Crestor) 10 mg PO QDAY 10/10/24 04/21/25 History clonidine HCl 0.1 mg tablet 0.1 mg PO BID #1 TAB 12/03/2404/06 Rx levothyroxine 50 mcg tablet 50 mcg PO QDAY #1 TAB 12/03/24 Rx (Levoxyl) Have you fallen in the past year?: No PFSH Medical History Dizziness Fatigue Gastroenteritis Vertigo Elevated cholesterol Osteopenia Non-organic sleep disorder Essential (primary) hypertension Palpitations Gastroenteritis Surgical History Hx of tubal ligation Family History Sister Myocardial infarction Brother Myocardial infarction Father Myocardial infarction Social History Smoking Status: Former smoker alcohol intake: never substance use type: does not use ROS Const Const: Positive for fatigue; Negative for weakness Eyes Eyes: Negative for change in vision ENT ENT: Negative for dizziness or balance problems Cardio Chest Pain: No Palpitations: No Edema: None Muscle aches with walking: None Resp Respiratory: Positive for snoring; Negative for SOB with activity, SOB at rest or SOB orthopnea SOB lying down GI GI: Positive for nausea (on medications to help) and heartburn (on medications to help) : Negative for hematuria or frequent nighttime urination/ nocturia Musc Musc: Negative for balance problems Skin Skin: Negative non-healing lesions or rash Neuro Neuro: Positive for lightheadedness; Negative for dizziness, near syncope, syncope or weakness Endo Endo: Positive for fatigue Allergy Allergy/Immunology: Negative for rash Cardiology Exam Const Appearance: cooperative, healthy appearing, comfortable and no acute distress Nutritional Appearance: average body habitus and well nourished Orientation: alert, awake and oriented x3 Head Head: normal to inspection Ears: hearing grossly normal bilaterally Nose: external nose normal Face and Sinus: face symmetric Mouth: moist mucous membranes Eyes General: appearance normal, both eyes and all related structures Eyelids: eyelids normal EOM: EOM intact bilaterally Neck Neck: normal visual inspection and no JVD Carotids: normal carotid upstroke Chest Chest inspection: normal inspection of the chest, symmetric chest movement and normal respiratory effort; Negati (more content not included)... Normal [facility] Absolute lymphocyte countOrd ered By: Maddy Chirag on 02-18-2025 Lymphocytes Auto (Unsp spec) [#/Vol] 3.10 10*3/uL 0.83-4.51 [facility] Absolute neutrophil countOrd ered By: Maddy Beard on 02-18-2025 Neutrophils (Bld) [#/Vol] 3.7 10*3/uL 2.0-7.7 [facility] Automated lymphocyte count a s percentage of total leukocytesOrdered By: Maddy Beard on 02-18-2025 Lymphocytes/100 WBC Auto (Unsp spec) 39.8 % 19-41 [facility] Basophil percentageOrdered B y: Maddy Beard on 02-18-2025 Basophils/100 WBC (Bld) 0.6 % 0-1 [facility] CBC W/Diff, Automatedon 02-04 Absolute Lymph 3.10 X10 3/uL Normal 0.83-4.51 [facility] Comment on above: Performed By: #### L 101.9900, L100.0100 #### [facility] [address] [place], [address] Absolute Neut 3.7 X10 3/uL Normal 2.0-7.7 [facility] Comment on above: Performed By: #### L 101.9900, L100.0100 #### [facility] [address] [place], [address] Basophils/100 WBC (Bld) 0.6 % Normal 0-1 [facility] Comment on above: Performed By: #### L 101.9900, L100.0100 #### [facility] [address] [place], [address] Eosinophils/100 WBC (Bld) 3.1 % Normal 0-5 [facility] Comment on above: Performed By: #### L 101.9900, L100.0100 #### [facility] [address] [place], [address] Erythrocyte distribution width (RBC) [Ratio] 12.3 % Normal 11.6-14.6 [facility] Comment on above: Performed By: #### L 101.9900, L100.0100 #### [facility] [address] [place], [address] Hematocrit (Bld) [Volume fraction] 40.2 % Normal 37-47 [facility] Comment on above: Performed By: #### L 101.9900, L100.0100 #### [facility] [address] [place], [address] Hemoglobin (Bld) [Mass/Vol] 13.5 g/dL Normal 12.0-15.0 [facility] Comment on above: Performed By: #### L 101.9900, L100.0100 #### [facility] [address] [place], [address] IG% 0.300 Normal 0.0-0.9 [facility] Comment on above: Result Comment: IG% - Immature Granulocytes (promyelocytes, myelocytes and metamyelocytes) > 1% indicates that a LEFT SHIFT is Present. Performed By: #### L 101.9900, L100.0100 #### [facility] [address] [place], [address] Lymphocytes/100 WBC (Bld) 39.8 % Normal 19-41 [facility] Comment on above: Performed By: #### L 101.9900, L100.0100 #### [facility] [address] [place], [address] MCH (RBC) [Entitic mass] 30.0 pg Normal 27.0-32.0 [facility] Comment on above: Performed By: #### L 101.9900, L100.0100 #### [facility] [address] [place], [address] MCHC (RBC) [Mass/Vol] 33.6 g/dL Normal 32-36 [facility] Comment on above: Performed By: #### L 101.9900, L100.0100 #### [facility] [address] [place], [address] MCV (RBC) [Entitic vol] 89.3 fL Normal 81-99 [facility] Comment on above: Performed By: #### L 101.9900, L100.0100 #### [facility] [address] [place], [address] Monocytes/100 WBC (Bld) 9.4 % Normal 0-10 [facility] Comment on above: Performed By: #### L 101.9900, L100.0100 #### [facility] [address] [place], [address] Neutrophils/100 WBC (Bld) 46.8 % Low 47-70 [facility] Comment on above: Performed By: #### L 101.9900, L100.0100 #### [facility] [address] [place], [address] Nucleated RBC (Bld) [#/Vol] 0 10*3/uL Normal 0-5 [facility] Comment on above: Performed By: #### L 101.9900, L100.0100 #### [facility] [address] [place], [address] Platelet mean volume (Bld) [Entitic vol] 9.7 fL Normal 6.2-12.0 [facility] Comment on above: Performed By: #### L 101.9900, L100.0100 #### [facility] [address] [place], [address] Platelets (Bld) [#/Vol] 264 10*3/uL Normal 150-450 [facility] Comment on above: Performed By: #### L 101.9900, L100.0100 #### [facility] [address] [place], [address] RBC (Bld) [#/Vol] 4.50 10*6/uL Normal 4.2-5.4 [facility] Comment on above: Performed By: #### L 101.9900, L100.0100 #### [facility] [address] [place], [address] RDW SD 40.5 fl Normal 35.1-43.9 [facility] Comment on above: Performed By: #### L 101.9900, L100.0100 #### [facility] [address] [place], [address] WBC (Bld) [#/Vol] 7.8 10*3/uL Normal 4.4-11.0 [facility] Comment on above: Performed By: #### L 101.9900, L100.0100 #### [facility] [address] [place], [address] Eosinophil percentageOrdered By: Maddy Beard on 02-18-2025 Eosinophils/100 WBC (Bld) 3.1 % 0-5 [facility] Erythrocyte Sed Rateon 02-18 SED RATE 10 mm/hr Normal 0-30 [facility] Comment on above: Performed By: #### L 101.9900, L100.0100 #### [facility] [address] [place], [address] Erythrocyte distribution wid th (RBC) [Ratio]Ordered By: Maddy Beard on 02-18-2025 Erythrocyte distribution width (RBC) [Entitic vol] 40.5 fL 35.1-43.9 [facility] Erythrocyte distribution wid th ratioOrdered By: Maddy Beard on 02-18-2025 Erythrocyte distribution width (RBC) [Ratio] 12.3 % 11.6-14.6 [facility] Erythrocyte distribution wid th standard deviationOrdered By: Maddy Beard on 02-18-2025 Erythrocyte distribution width (RBC) [Ratio] 40.5 fl 35.1-43.9 [facility] Erythrocyte sedimentation ra teOrdered By: Maddy Beard on 02-18-2025 ESR (Bld) [Velocity] 10 mm/h 0-30 [facility] Hematocrit Auto (Bld) [Volum e fraction]Ordered By: Maddy Beard on 02-18-2025 Hematocrit (Bld) [Volume fraction] 40.2 % 37-47 [facility] Hemoglobin measurementOrdere d By: Maddy Beard on 02-18-2025 Hemoglobin (Bld) [Mass/Vol] 13.5 g/dL 12.0-15.0 [facility] Immature granulocytes/100 WB C Auto (Bld)Ordered By: Maddy Beard 02-18-2025 Immature granulocytes/100 WBC (Bld) 0.300 % 0.0-0.9 [facility] Comment on above: IG% - Immature Granu locytes (promyelocytes, myelocytes and metamyelocytes) > 1% indicates that a LEFT SHIFT is Present. Lymphocytes Auto (Unsp spec) [#/Vol]Ordered By: Maddy Beard on 02-18-2025 Lymphocytes (Bld) [#/Vol] 3.10 10*3/uL 0.83-4.51 [facility] Lymphocytes/100 WBC Auto (Un sp spec)Ordered By: Maddy Beard on 02-18-2025 Lymphocytes/100 WBC (Bld) 39.8 % 19-41 [facility] MCV (mean corpuscular volume ) determinationOrdered By: Maddy Beard 02-18-2025 MCV (RBC) [Entitic vol] 89.3 fL 81-99 [facility] Mean corpuscular hemoglobin (MCH) determinationOrdered By: Maddy Beard on 02-18-2025 MCH (RBC) [Entitic mass] 30.0 pg 27.0-32.0 [facility] Mean corpuscular hemoglobin concentration (MCHC) determinationOrdered By: Maddy Beard on 02-18-2025 MCHC (RBC) [Mass/Vol] 33.6 g/dL 32-36 [facility] Mean platelet volume determi nationOrdered By: Maddy Beard on 02-18-2025 Platelet mean volume (Bld) [Entitic vol] 9.7 fL 6.2-12.0 [facility] Monocyte percentageOrdered B y: Maddy Beard on 02-18-2025 Monocytes/100 WBC (Bld) 9.4 % 0-10 [facility] Neutrophil percentageOrdered By: Maddy Beard on 02-18-2025 Neutrophils/100 WBC (Bld) 46.8 % Low 47-70 [facility] Nucleated red blood cell per centageOrdered By: Maddy Beard on 02-18-2025 Nucleated RBC/100 WBC (Bld) [Ratio] 0 % 0-5 [facility] Platelet countOrdered By: Edwina Beard on 02-18-2025 Platelets (Bld) [#/Vol] 264 10*3/uL 150-450 [facility] RBC Auto (Bld) [#/Vol]Ordere d By: Maddy Beard on 02-18-2025 RBC (Bld) [#/Vol] 4.50 10*6/uL 4.2-5.4 [facility] White blood cell (WBC) count Ordered By: Maddy Beard on 02-18-2025 WBC (Bld) [#/Vol] 7.8 10*3/uL 4.4-11.0 [facility] TSH DL <= 0.005 mIU/L QnOrde red By: Maddy Beard on 01-03-2025 Thyroid Stimulating Hormone (TSH) 1.040 uIU/mL 0.300-4.200 [facility] TSH Qn 1.040 uIU/mL 0.300-4.200 [facility] Thyroid Stim Hormone (TSH)on 01-03-2025 TSH 1.040 uIU/mL Normal 0.300-4.200 [facility] Comment on above: Order Comment: Order Date: 01/03/25Order Info: [id number] - TSH Performed By: #### L 501.8989 ####[facility] [id number] [place], [address] Echo Completeon 12-02-2024 Echo Complete [facility] [address] [place] [address] Echo Complete 12/02/24 1301 MR#: [id number] Acct: [id number] Name: AMERICO LEES Rep #: [id number] : 1955 69 From: Adrian Ty MD Attending Dr: Dr. Adrian Ty MD Status: MAMI JOSUE Ordering Dr: Adrian Ty MD Date: 12/02/24 Location: [facility] Sex: F C Admitted: Reason For Study: HYPERTENSION Procedure This was a 2D Doppler, Color Flow transthoracic echocardiogram. Exam performed in department. Left Ventricle Normal left ventricle. Left ventricular systolic function is normal. The left ventricular ejection fraction is 65 %. No regional wall motion abnormalities noted. Right Ventricle Normal RV size. Normal systolic function. Atria Normal left atrium. Normal right atrium. Mitral Valve Normal mitral valve. Tricuspid Valve Normal tricuspid valve. Mild tricuspid valve insufficiency. Pulmonary artery systolic pressure is 22 mmHg. Aortic Valve Trisinus/trileaflet aortic valve. Mild (1+) aortic valve insufficiency. Pulmonic Valve Normal pulmonic valve. Great Vessels Normal aortic root. The pulmonary artery is normal size. Inferior vena cava collapse with respiration. Pericardium/Pleural No pericardial effusion. MMode/2D Measurements Calculations LVIDd: 4.0 cm IVSd: 1.0 cm LVOT diam: 1.9 cm LVIDs: 2.3 cm LVPWd: 0.94 cm LVOT area: 2.9 cm2 RVDd: 2.5 cm FS: 41.9 % asc Aorta Diam: 3.0 cm LAV(MOD-bp): 23.8 ml LVAd ap4: 15.2 cm2 LAV(MOD-bp) Indexed: 14.3 ml/m2 LVLd ap4: 6.5 cm LAV(MOD-sp2): 24.1 ml EDV(MOD-sp4): 29.6 ml LAV(MOD-sp4): 23.1 ml EDV(sp4-el): 30.4 ml LVAs ap4: 8.2 cm2 LVLs ap4: 5.0 cm ESV(MOD-sp4): 11.2 ml ESV(sp4-el): 11.2 ml EF(MOD-sp4): 62.2 % EF(sp4-el): 63.1 % LVAd ap2: 16.7 cm2 SV(MOD-sp4): 18.4 ml SV(MOD-sp2): 21.0 ml LVLd ap2: 7.0 cm SI(MOD-sp4): 11.1 ml/m2 SI(MOD-sp2): 12.6 ml/m2 EDV(MOD-sp2): 32.8 ml EDV(sp2-el): 33.8 ml LVAs ap2: 9.1 cm2 LVLs ap2: 6.1 cm ESV(MOD-sp2): 11.8 ml ESV(sp2-el): 11.4 ml EF(MOD-sp2): 64.0 % SV(sp4-el): 19.1 ml Ao sinus diam: 2.[address] Junction: 2.1 cm LA dimension(2D): 3.3 cm LA A4 area: 11.2 cm2 RA A4 area: 6.2 cm2 TAPSE: 2.1 cm Time Measurements MV dec time: 0.13 sec Doppler Measurements Calculations MV E max guicho: 71.6 cm/sec Lat Peak E' Guicho: 10.9 cm/sec Med Peak E' Guicho: 7.9 cm/sec MV A max guicho: 84.8 cm/sec E/E' lat: 6.6 E/E' med: 9.1 MV E/A: 0.84 MV dec slope: 554.6 cm/sec2 Ao V2 max: 119.4 cm/sec AI max guicho: 383.7 cm/sec Ao max P.7 mmHg AI max P.9 mmHg Ao V2 mean: 84.4 cm/sec AI dec slope: 203.6 cm/sec2 Ao mean P.2 mmHg AI P1/2t: 551.9 msec Ao V2 VTI: 26.3 cm AV (velocity ratio): 0.71 NITA(I,D): 2.0 cm2 NITA(V,D): 2.0 cm2 LV V1 max: 81.9 cm/sec SV(LVOT): 53.2 ml PA V2 max: 105.7 cm/sec LV V1 max P.7 mmHg LV V1 mean P.5 mmHg LV V1 mean: 56.7 cm/sec LV V1 VTI: 18.6 cm TR max guicho: 212.3 cm/sec TR max P.0 mmHg ECHO/Echo Complete Interpretation Summary Normal left ventricle. Left ventricular systolic function is normal. The left ventricular ejection fraction is 65 %. Mild (1+) aortic valve insufficiency. Pulmonary artery systolic pressure is 22 mmHg. Ordering Physician: Adrian Ty Referring Physician: Maddy Beard M.D. Performed By: Anna Lin RDCS 12/02/24 151 Date Adrian Ty MD CC: Dr. Maddy Beard MD; Dr. Adrian Ty MD Date Dictated: 12/02/24 1301 Date Transcribed: 12/02/24 151 Banking Management Consulting Manager: Signed [place] [id number] Lead EKGon 11-24-2024 12 Lead EKG [facility] Cardiovascular Services [address] [place] [address] 12 Lead EKG 11/24/24 1935 MR#: [id number] Acct: [id number] Name: AMERICO LEES Rep #: [id number] : 1955 69 From: Noris Pastor MD Attending Dr: Status: DEP ER Ordering Dr: Edinson Henao DO Date: 11/24/24 Location: ED Sex: F C Admitted: Test Reason : PALPITATIONS Blood Pressure : */* mmHG Vent. Rate : 105 BPM Atrial Rate : 105 BPM P-R Int : 180 ms QRS Dur : 82 ms QT Int : 348 ms P-R-T Axes : 56 110 42 degrees QTcB Int : 459 ms Sinus tachycardia Right axis deviation Possible Right ventricular hypertrophy Abnormal ECG Confirmed by MAYRA BERTRAND, CARO ([id number]), editorial intern LUIS CARLOS HOLT ([id number]) on 11/25/2024 10:59:31 AM Referred By: SAN[place]ORD Confirmed By: CARO PASTOR MD 11/25/24 1059 Date Noris Pastor MD CC: Dr. Maddy Beard MD; Dr. Edinson Henao DO Signed Normal [facility] Absolute neutrophil countOrd ered By: Edinson Henao on 11-24-2024 Neutrophils (Bld) [#/Vol] 3.9 10*3/uL 2.0-7.7 [facility] Basic Metabolic Profile (BMP )on 11-24-2024 BUN/CRE 20.5 RATIO High 08-25 [facility] Comment on above: Performed By: #### L 501.9520, L100.0100, L501.5200, L500.2500 #### [facility] [address] [place], [address] CA,Total 8.8 mg/dL Normal 8.5-10.1 [facility] Comment on above: Performed By: #### L 501.9520, L100.0100, L501.5200, L500.2500 #### [facility] [address] [place], [address] Chloride [Moles/Vol] 108 mmol/L High 98-107 [facility] Comment on above: Performed By: #### L 501.9520, L100.0100, L501.5200, L500.2500 #### [facility] [address] [place], [address] CO2 [Moles/Vol] 25.0 mmol/L Normal 21.0-32.0 [facility] Comment on above: Performed By: #### L 501.9520, L100.0100, L501.5200, L500.2500 #### [facility] [address] [place], [address] Creatinine [Mass/Vol] 0.88 mg/dL Normal 0.55-1.02 [facility] Comment on above: Result Comment: The validity of the calculated GFR GFRAA in patients over 70 years has not been determined. Clinical correlation is essential. Performed By: #### L 501.9520, L100.0100, L501.5200, L500.2500 #### [facility] [address] [place], [address] ECRCL 56.68 ml/min Normal [facility] Comment on above: Performed By: #### L 501.9520, L100.0100, L501.5200, L500.2500 #### [facility] [address] [place], [address] EST GFR - AA 82 mL/min Normal >60 [facility] Comment on above: Result Comment: Afri can Bahraini GFR Calc Performed By: #### L 501.9520, L100.0100, L501.5200, L500.2500 #### [facility] [address] [place], [address] GAP 7 Normal 5-15 [facility] Comment on above: Performed By: #### L 501.9520, L100.0100, L501.5200, L500.2500 #### [facility] [address] [place], [address] GFR/1.73 sq M.predicted among non-blacks MDRD (S/P/Bld) [Vol rate/Area] 68 mL/min/{1.73_m2} Normal >60 [facility] Comment on above: Result Comment: Non- GFR Calc Performed By: #### L 501.9520, L100.0100, L501.5200, L500.2500 #### [facility] [address] [place], [address] Glucose [Mass/Vol] 210 mg/dL High 74-106 [facility] Comment on above: Result Comment: Gluc ose result greater than or equal to 200 mg/dL suggests DIABETES MELLITUS per A.D.A. criteria. Performed By: #### L 501.9520, L100.0100, L501.5200, L500.2500 #### [facility] [address] [place], [address] Potassium [Moles/Vol] 3.7 mmol/L Normal 3.5-5.1 [facility] Comment on above: Performed By: #### L 501.9520, L100.0100, L501.5200, L500.2500 #### [facility] [address] [place], [address] Sodium [Moles/Vol] 140 mmol/L Normal 136-145 [facility] Comment on above: Performed By: #### L 501.9520, L100.0100, L501.5200, L500.2500 #### [facility] [address] [place], [address] Urea nitrogen [Mass/Vol] 18 mg/dL Normal 7-18 [facility] Comment on above: Performed By: #### L 501.9520, L100.0100, L501.5200, L500.2500 #### [facility] [address] [place], [address] Basophil percentageOrdered B y: Edinson Sanford on 11-24-2024 Basophils/100 WBC (Bld) 0.6 % 0-1 [facility] Blood urea nitrogen (BUN)/cr eatinine ratioOrdered By: Edinson Henao on 11-24-2024 Urea nitrogen/Creatinine [Mass ratio] 20.5 mg/mg High 10-20 [facility] CBC W/Diff, Automatedon 11-06 Absolute Lymph 2.94 X10 3/uL Normal 0.83-4.51 [facility] Comment on above: Performed By: #### L 501.9520, L100.0100, L501.5200, L500.2500 #### [facility] [address] [place], [address] Absolute Neut 3.9 X10 3/uL Normal 2.0-7.7 [facility] Comment on above: Performed By: #### L 501.9520, L100.0100, L501.5200, L500.2500 #### [facility] [address] [place], [address] Basophils/100 WBC (Bld) 0.6 % Normal 0-1 [facility] Comment on above: Performed By: #### L 501.9520, L100.0100, L501.5200, L500.2500 #### [facility] [address] [place], [address] Eosinophils/100 WBC (Bld) 2.6 % Normal 0-5 [facility] Comment on above: Performed By: #### L 501.9520, L100.0100, L501.5200, L500.2500 #### [facility] [address] [place], [address] Erythrocyte distribution width (RBC) [Ratio] 12.5 % Normal 11.6-14.6 [facility] Comment on above: Performed By: #### L 501.9520, L100.0100, L501.5200, L500.2500 #### [facility] [address] [place], [address] Hematocrit (Bld) [Volume fraction] 39.1 % Normal 37-47 [facility] Comment on above: Performed By: #### L 501.9520, L100.0100, L501.5200, L500.2500 #### [facility] [address] [place], [address] Hemoglobin (Bld) [Mass/Vol] 13.4 g/dL Normal 12.0-15.0 [facility] Comment on above: Performed By: #### L 501.9520, L100.0100, L501.5200, L500.2500 #### [facility] [address] [place], [address] IG% 0.300 Normal 0.0-0.9 [facility] Comment on above: Result Comment: IG% - Immature Granulocytes (promyelocytes, myelocytes and metamyelocytes) > 1% indicates that a LEFT SHIFT is Present. Performed By: #### L 501.9520, L100.0100, L501.5200, L500.2500 #### [facility] [address] [place], [address] Lymphocytes/100 WBC (Bld) 36.8 % Normal 19-41 [facility] Comment on above: Performed By: #### L 501.9520, L100.0100, L501.5200, L500.2500 #### [facility] [address] [place], [address] MCH (RBC) [Entitic mass] 30.6 pg Normal 27.0-32.0 [facility] Comment on above: Performed By: #### L 501.9520, L100.0100, L501.5200, L500.2500 #### [facility] [address] [place], [address] MCHC (RBC) [Mass/Vol] 34.3 g/dL Normal 32-36 [facility] Comment on above: Performed By: #### L 501.9520, L100.0100, L501.5200, L500.2500 #### [facility] [address] [place], [address] MCV (RBC) [Entitic vol] 89.3 fL Normal 81-99 [facility] Comment on above: Performed By: #### L 501.9520, L100.0100, L501.5200, L500.2500 #### [facility] [address] [place], [address] Monocytes/100 WBC (Bld) 11.3 % High 0-10 [facility] Comment on above: Performed By: #### L 501.9520, L100.0100, L501.5200, L500.2500 #### [facility] [address] [place], [address] Neutrophils/100 WBC (Bld) 48.4 % Normal 47-70 [facility] Comment on above: Performed By: #### L 501.9520, L100.0100, L501.5200, L500.2500 #### [facility] [address] [place], [address] Nucleated RBC (Bld) [#/Vol] 0 10*3/uL Normal 0-5 [facility] Comment on above: Performed By: #### L 501.9520, L100.0100, L501.5200, L500.2500 #### [facility] [address] [place], [address] Platelet mean volume (Bld) [Entitic vol] 8.9 fL Normal 6.2-12.0 [facility] Comment on above: Performed By: #### L 501.9520, L100.0100, L501.5200, L500.2500 #### [facility] [address] [place], [address] Platelets (Bld) [#/Vol] 274 10*3/uL Normal 150-450 [facility] Comment on above: Performed By: #### L 501.9520, L100.0100, L501.5200, L500.2500 #### [facility] [address] [place], [address] RBC (Bld) [#/Vol] 4.38 10*6/uL Normal 4.2-5.4 [facility] Comment on above: Performed By: #### L 501.9520, L100.0100, L501.5200, L500.2500 #### [facility] [address] [place], [address] RDW SD 41.0 fl Normal 35.1-43.9 [facility] Comment on above: Performed By: #### L 501.9520, L100.0100, L501.5200, L500.2500 #### [facility] [address] [place], [address] WBC (Bld) [#/Vol] 8.0 10*3/uL Normal 4.4-11.0 [facility] Comment on above: Performed By: #### L 501.9520, L100.0100, L501.5200, L500.2500 #### [facility] [address] [place], [address] Carbon dioxide measurementOr dered By: Edinson Henao on 11-24-2024 CO2 [Moles/Vol] 25.0 mmol/L 21.0-32.0 [facility] Chest 1 View (Portable)on Chest 1 View (Portable) [facility] Imaging Services [address] [place] [address] Chest 1 View (Portable) MR#: [id number] Acct: [id number] Name: AMERICO LEES Rep #: [id number] : 1955 F 69 From: Abelardo Mai MD PCP: Dr. Maddy Beard MD Status: REG ER Study: Chest 1 View (Portable) Date of Exam: 11/24/24 Exam# [id number] Ordering Dr: Edinson Henao [place] [id number] EXAM: XR CHEST, 1 VIEW CLINICAL INDICATION: chest pain TECHNIQUE: Frontal view of the chest. COMPARISON: 11/08/2019 FINDINGS: LUNGS AND PLEURAL SPACES: Unremarkable. No consolidation or edema. No pneumothorax. No effusion. HEART: Unremarkable. Cardiac silhouette not enlarged. MEDIASTINUM: Central airways and mediastinal contour are unremarkable. BONES/JOINTS: Unremarkable. No acute fracture. SOFT TISSUES: Unremarkable. RAD/Chest 1 View (Portable) IMPRESSION: No radiographic evidence of acute cardiopulmonary disease. Electronically Signed: Abelardo Mai MD at 20:25 EST , CC: Dr. Maddy Beard MD; Dr. Edinson Henao DO Banking Management Consulting Manager: Signed Normal [facility] Chloride measurementOrdered By: Edinson Henao on 11-24-2024 Chloride [Moles/Vol] 108 mmol/L High 98-107 [facility] Emergency Department Summary on 11-24-2024 Emergency Department Summary [facility] Medical Records Department [address] [place] [address] Emergency Department Summary 11/24/24 MR#: [id number] Acct: [id number] Name: AMERICO LEES Rep #: [id number] : 1955 69 From: Edinson Henao DO PCP: Dr. Maddy Beard MD Status:DEP ER Location: ED HPI History of Present Illness Chief Complaint: Palpitations Informant: patient, spouse/S.O. and EMS Narrative Narrative: 69-year-old female presenting to the emergency room with a chief complaint of palpitations. Patient states that recently she has had difficulty controlling her blood pressure. She saw cardiology on 13 November and her hydrochlorothiazide was discontinued and she was started on losartan. She is scheduled for an echocardiogram later this month. She notes her blood pressure continues to be elevated. She is also taking metoprolol 100 mg once a day which she takes for fast heart rate. The patient states that tonight she went home from [place] ate dinner and had a sudden onset of chest palpitations. She stated that he felt like her heart was racing and she had discomfort in her chest. She states it is improved now. EMS EKG showed a sinus tachycardia. [facility] Medical History Dizziness Fatigue Gastroenteritis Vertigo Elevated cholesterol Osteopenia Non-organic sleep disorder Essential (primary) hypertension Palpitations Gastroenteritis Home Medications ???Medication ???Instructions ???Recorded ???Last Taken ???Type aspirin 81 mg tablet,delayed 81 mg PO DAILY 02/27/17 02/27/17 History release (Aspir-Low) multivitamin (Daily Multiple 1 ea PO DAILY 06/15/18 Unknown History tablet) zolpidem 5 mg tablet 5 mg PO QHS PRN PRN Sleep 06/15/18 Unknown History lubiprostone 8 mcg capsule 8 mcg PO QDAY 10/10/24 Unknown History (Amitiza) meclizine 25 mg tablet 25 mg PO TID-QID PRN 10/10/24 Unknown History metoprolol succinate 100 mg 100 mg PO QDAY 10/10/24 Unknown History tablet,extended release 24 hr pantoprazole 40 mg tablet,delayed 40 mg PO QDAY 10/10/24 Unknown History release rosuvastatin 10 mg tablet (Crestor) 10 mg PO QDAY 10/10/24 Unknown History losartan 100 mg tablet 100 mg PO QDAY #90 tabs 11/13/24 Unknown Rx spironolactone 25 mg tablet 25 mg PO QDAY #30 tabs 11/21/24 Unknown Rx Allergy/AdvReac Type Severity Reaction Status Date / Time Sulfa (Sulfonamide Allergy Upset Verified 11/24/24 19:23 Antibiotics) Stomach Family History Sister Myocardial infarction Brother Myocardial infarction Father Myocardial infarction Surgical History Hx of tubal ligation Social History Smoking Status: Former smoker alcohol intake: never substance use type: does not use ROS ROS ED Constitutional Constitutional ED: Denies chills or weight loss Eyes Eyes: Denies change in vision or diplopia ENT ENT ED: Denies ear pain, rhinorrhea or sore throat Cardiovascular Cardiovascular: Reports palpitations and racing heartbeat; Denies chest pain or orthopnea Respiratory/Chest Respiratory/Chest: Denies cough, dyspnea or orthopnea Gastrointestinal Gastrointestinal: Denies abdominal pain, diarrhea, nausea or vomiting Genitourinary Genitourinary ED: Denies dysuria, hematuria or urinary frequency Musculoskeletal Musculoskeletal: Denies arthralgias or myalgias Integumentary Denies abscess or rash Neurologic Neurologic: Denies headache(s) or weakness Psychiatric Psychiatric: Denies anxiety, depression, suicidal ideation or suicidal thoughts Endocrine Endocrinology: Denies polydipsia, polyphagia or polyuria Allergic/Immunologic Allergic/Immunologic ED: Denies mouth swelling, tongue swelling or urticaria EXAM Physical Exam Const Vital Signs: 11/24/24 19:27 11/24/24 20:23 11/24/24 21:00 Temperature 98.1 F Temperature Source Oral Pulse Rate 98 95 78 Respiratory Rate 17 Blood Pressure 179/82 H 159/86 H 150/92 H Blood Pressure Mean 114 110 111 Pulse Ox 100 100 Oxygen Delivery Method Room Air 11/24/24 21:27 Temperature 97.9 F Temperature Source Pulse Rate 78 Respiratory Rate 18 Blood Pressure 150/92 H Blood Pressure Mean 111 Pulse Ox 99 Oxygen Delivery Method Positive well nourished and well developed General Appearance ED: well developed and NAD HEENT Reports normocephalic, head/scalp atraumatic and moist mucous membranes Eyes PERRL and EOMs intact bilaterally Neck no lymphadenopathy, supple and no JVD Resp normal respiratory effort and clear to auscultation bilaterally Cardio regular rate, regular rhythm and no murmurs GI (more content not included)... Normal [facility] Eosinophil percentageOrdered By: Edinson Henao on 11-24-2024 Eosinophils/100 WBC (Bld) 2.6 % 0-5 [facility] Erythrocyte distribution wid th ratioOrdered By: Edinson Henao on 11-24-2024 Erythrocyte distribution width (RBC) [Ratio] 12.5 % 11.6-14.6 [facility] Erythrocyte distribution wid th standard deviationOrdered By: Edinson Henao on 11-24-2024 Erythrocyte distribution width (RBC) [Entitic vol] 41.0 fL 35.1-43.9 [facility] Estimated glomerular filtrat ion rate (GFR) AmericanOrdered By: Edinson Henao on 11-24-2024 Estimated GFR (MDRD) Amer 82 mL/min >60 [facility] Comment on above: GFR Calc Estimation of creatinine catherine aranceOrdered By: Edinson Henao on 11-24-2024 Estimated Creatinine Clearance Calc 56.68 ml/min [facility] Glomerular filtration rate ( GFR) estimationOrdered By: Edinson Henao on 11-24-2024 Estimated GFR (MDRD) Non-Af Amer 68 mL/min >60 [facility] Comment on above: Non- GFR Calc Glucose measurementOrdered B y: Edinson Henao on 11-24-2024 Glucose [Mass/Vol] 210 mg/dL High 74-106 [facility] Comment on above: Glucose result great er than or equal to 200 mg/dLsuggests DIABETES MELLITUS per A.D.A. criteria. Hematocrit Auto (Bld) [Volum e fraction]Ordered By: Edinson Henao on 11-24-2024 Hematocrit (Bld) [Volume fraction] 39.1 % 37-47 [facility] Hemoglobin measurementOrdere d By: Edinson Henao on 11-24-2024 Hemoglobin (Bld) [Mass/Vol] 13.4 g/dL 12.0-15.0 [facility] Immature granulocytes/100 WB C Auto (Bld)Ordered By: Edinson Henao on 11-24-2024 Immature granulocytes/100 WBC (Bld) 0.300 % 0.0-0.9 [facility] Comment on above: IG% - Immature Granu locytes (promyelocytes, myelocytes and metamyelocytes) > 1% indicates that a LEFT SHIFT is Present. Lymphocytes Auto (Unsp spec) [#/Vol]Ordered By: Edinson Henao on 11-24-2024 Lymphocytes (Bld) [#/Vol] 2.94 10*3/uL 0.83-4.51 [facility] Lymphocytes/100 WBC Auto (Un sp spec)Ordered By: Edinson Henao on 11-24-2024 Lymphocytes/100 WBC (Bld) 36.8 % 19-41 [facility] MCV (mean corpuscular volume ) determinationOrdered By: Edinson Henao on 11-24-2024 MCV (RBC) [Entitic vol] 89.3 fL 81-99 [facility] Magnesiumon 11-24-2024 Magnesium [Mass/Vol] 2.2 mg/dL Normal 1.6-2.6 [facility] Comment on above: Performed By: #### L 501.9520, L100.0100, L501.5200, L500.2500 #### [facility] [place], [address] Magnesium measurementOrdered By: Edinson Henao on 11-24-2024 Magnesium [Mass/Vol] 2.2 mg/dL 1.6-2.6 [facility] Mean corpuscular hemoglobin (MCH) determinationOrdered By: Edinson Henao on 11-24-2024 MCH (RBC) [Entitic mass] 30.6 pg 27.0-32.0 [facility] Mean corpuscular hemoglobin concentration (MCHC) determinationOrdered By: Edinson Henao on 11-24-2024 MCHC (RBC) [Mass/Vol] 34.3 g/dL 32-36 [facility] Mean platelet volume determi nationOrdered By: Edinson Henao on 11-24-2024 Platelet mean volume (Bld) [Entitic vol] 8.9 fL 6.2-12.0 [facility] Monocyte percentageOrdered B y: Edinson Henao on 11-24-2024 Monocytes/100 WBC (Bld) 11.3 % High 0-10 [facility] Neutrophil percentageOrdered By: Edinson Henao on 11-24-2024 Neutrophils/100 WBC (Bld) 48.4 % 47-70 [facility] Nucleated red blood cell per centageOrdered By: Edinson Henao on 11-24-2024 Nucleated RBC/100 WBC (Bld) [Ratio] 0 % 0-5 [facility] Platelet countOrdered By: Jorden Henao on 11-24-2024 Platelets (Bld) [#/Vol] 274 10*3/uL 150-450 [facility] Potassium measurementOrdered By: Edinson Henao on 11-24-2024 Potassium [Moles/Vol] 3.7 mmol/L 3.5-5.1 [facility] RBC Auto (Bld) [#/Vol]Ordere d By: Edinson Henao on 11-24-2024 RBC (Bld) [#/Vol] 4.38 10*6/uL 4.2-5.4 [facility] Serum anion gap measurementO rdered By: Edinson Henao on 11-24-2024 Anion gap [Moles/Vol] 7 mmol/L 5-15 [facility] Serum or plasma calcium christophe urement (mass/volume)Ordered By: Edinson Henao on 11-24-2024 Calcium [Mass/Vol] 8.8 mg/dL 8.5-10.1 [facility] Serum or plasma creatinine m easurement (mass/volume)Ordered By: Edinson Henao on 11-24-2024 Creatinine [Mass/Vol] 0.88 mg/dL 0.55-1.02 [facility] Comment on above: The validity of the calculated GFR & GFRAA in patients over 70 years has not been determined. Clinical correlation is essential. Serum or plasma urea nitroge n measurement (mass/volume)Ordered By: Edinson Henao on 11-24-2024 Urea nitrogen [Mass/Vol] 18 mg/dL 7-18 [facility] Sodium levelOrdered By: Jase Henao on 11-24-2024 Sodium [Moles/Vol] 140 mmol/L 136-145 [facility] TSH QnOrdered By: Edinson srinivasan on 11-24-2024 Thyroid Stimulating Hormone (TSH) 7.590 uIU/mL High 0.358-3.740 [facility] Thyroid Stim Hormone (TSH)on 11-24-2024 TSH 7.590 uIU/mL High 0.358-3.740 [facility] Comment on above: Performed By: #### L 501.9520, L100.0100, L501.5200, L500.2500 #### [facility] [address] [place], [address] White blood cell (WBC) count Ordered By: Edinson Henao on 11-24-2024 WBC (Bld) [#/Vol] 8.0 10*3/uL 4.4-11.0 [facility] 12 Lead EKG performed by [facility] on 11-13-2024 12 Lead EKG performed by [facility] [address] [place] [address] 12 Lead EKG performed by [facility] 11/13/24 1258 MR#: [id number] Acct: [id number] Name: AMERICO LEES Rep #: [id number] : 1955 69 From: Adrian Ty MD Attending Dr: Dr. Adrian Ty MD Status: DEP A MB Ordering Dr: Adrian Ty MD Date: 11/13/24 Location: [facility] Sex: F C Admitted: [facility]/12 Lead EKG performed by [facility] ECG Report Interpretation ----Sinus Rhythm -Incomplete right bundle branch block. ABNORMAL Electronically signed on 11/13/2024 at 14:47 by Adrian Tywood Software Version [id number] 11/13/24 1448 Date Adrian Ty MD CC: Dr. Maddy Beard MD Date Dictated: 11/13/24 1258 Date Transcribed: 11/13/241257 Banking Management Consulting Manager: [place] Signed Normal [facility] Cardiology Visit Reporton Cardiology Visit Report [facility] [address] [place] [address] OFFICE VISIT Date of Service: 11/13/24 MR#: [id number] Acct: [id number] Name: AMERICO LEES Rep #: [id number] : 1955 Provider: Dr. Adrian Ty MD Age/Sex: 69/F Location: [facility] Status: Signed HPI HPI History of Present Illness Details: Pleasant 69-year-old lady with a previous history of hypertension who says that she has had problems controlling her blood pressure recently. She denies any chest pain or shortness of breath or paroxysmal nocturnal dyspnea though she has had trace pedal edema on occasion. She has not had any neck arm or jaw discomfort suggest angina. She has been compliant with her medications. She tells me that she had a chemistry profile performed a few weeks ago though I do not have the results of the above. Lipid profile was performed last year demonstrating a total cholesterol 177 HDL of 40 LDL of 79. Her physical exam is unremarkable electrocardiogram demonstrates sinus rhythm with a rate of 85 bpm and a right bundle branch block. Intake Vital Signs 11/13/24 12:58 Height 5 ft 4 in Weight: 143 lb BMI 24.5 BP 159/86 H Blood Pressure Location Lt brachial Position Sitting Respiration 16 Pulse 84 Pulse Source Monitor Intake Visit Reasons: BP/RE-EST (SELF) Water Filter Cleaner Required: No Accompanied by: Significant Other Is patient in pain?: No Allergies Sulfa (Sulfonamide Antibiotics) Allergy (Verified 11/13/24 13:04) Upset Stomach Medications ???Medication ???Instructions ???Recorded ???Confirmed ???Type aspirin 81 mg tablet,delayed 81 mg PO DAILY 02/27/17 11/13/24 History release (Aspir-Low) multivitamin (Daily Multiple 1 ea PO DAILY 06/15/18 11/13/24 History tablet) zolpidem 5 mg tablet 5 mg PO QHS PRN PRN Sleep 06/15/18 11/13/24 History lubiprostone 8 mcg capsule 8 mcg PO QDAY 10/10/24 11/13/24 History (Amitiza) meclizine 25 mg tablet 25 mg PO TID-QID PRN 10/10/24 11/13/24 History metoprolol succinate 100 mg 100 mg PO QDAY 10/10/24 11/13/24 History tablet,extended release 24 hr pantoprazole 40 mg tablet,delayed 40 mg PO QDAY 10/10/24 11/13/24 History release rosuvastatin 10 mg tablet (Crestor) 10 mg PO QDAY 10/10/24 11/13/24 History losartan 100 mg tablet 100 mg PO QDAY #90 tabs 11/13/24 11/13/24 Rx Have you fallen in the past year?: No PFSH Medical History Dizziness Fatigue Gastroenteritis Vertigo Elevated cholesterol Osteopenia Non-organic sleep disorder Essential (primary) hypertension Palpitations Gastroenteritis Surgical History Hx of tubal ligation Family History Sister Myocardial infarction Brother Myocardial infarction Father Myocardial infarction Social History Smoking Status: Former smoker alcohol intake: never substance use type: does not use ROS Const Const: Positive for fatigue, headache(s) (with hypertension) and difficulty sleeping; Negative for weakness or daytime sleepiness ENT ENT: Positive for headache(s) (with hypertension); Negative for dizziness or Nosebleed/epistaxis Cardio Chest Pain: No Palpitations: No Edema: Bilateral (trace at times) Resp Respiratory: Negative for SOB with activity, SOB at rest, SOB orthopnea SOB lying down or Cough GI GI: Negative nausea, vomiting or heartburn Neuro Neuro: Positive for headache(s) (with hypertension); Negative for dizziness, lightheadedness, near syncope or weakness Endo Endo: Positive for fatigue Cardiology Exam Const Appearance: cooperative, healthy appearing, no acute distress, well developed and well groomed Nutritional Appearance: average body habitus and well nourished Orientation: alert, awake and oriented x3 Head Head: normal to inspection, normocephalic and atraumatic Ears: hearing grossly normal bilaterally and external ears normal Nose: external nose normal, nares normal, nasal mucous membranes and turbinates normal, septum normal and no nasal discharge Face and Sinus: face symmetric Mouth: oral mucosae normal, tongue normal, oropharynx normal and moist mucous membranes Teeth and gingiva: dentition normal Throat: posterior oropharynx normal, tonsils normal and uvula midline Eyes General: appearance normal, both eyes and all related structures Eyelids: eyelids normal Conjunctivae: conjunctivae normal Pupils: PERRL, normal by confrontation and accommodation normal EOM: EOM intact bilaterally Neck Neck: normal visual inspection, trachea midline and no JVD JVD: +5 Carotids: normal carotid upstroke and bounding pulses Chest Chest insp (more content not included)... Normal [facility] L/S Spine w Bend Min 6 Vwon 10-01-2024 L/S Spine w Bend Min 6 Vw [facility] Imaging Services [address] [place] [address] L/S Spine w Bend Min 6 Vw MR#: [id number] Acct: [id number] Name: AMERICO LEES Rep #: [id number] : 1955 F 69 From: Paul cuevas DO PCP: Dr. Maddy Beard MD Status: REG CLI Study: L/S Spine w Bend Min 6 Vw Date of Exam: Exam# [id number] Ordering Dr: Maddy Beard MD [id number] EXAM: XR LUMBOSACRAL SPINE COMPLETE WITH FLEXION/EXTENSION, 6 OR MORE VIEWS CLINICAL INDICATION: left leg pain TECHNIQUE: Lateral, frontal, oblique and lateral flexion/extension views of the lumbar spine and sacrum. COMPARISON: CT abdomen and pelvis, 09/04/2015 FINDINGS: VERTEBRAE: Multilevel endplate osteophytosis and facet arthrosis. Preservation of the normal lumbar lordosis. No fracture or spondylolysis. No spondylolisthesis. DISC SPACES: Intervertebral disc height loss at multiple levels, worst at L4-L5 associated with vacuum phenomenon. SOFT TISSUES: Bilateral tubal ligation clips are present. VASCULATURE: Vascular calcifications. GASTROINTESTINAL TRACT: Normal as visualized. Included bowel gas pattern is non-obstructive. RAD/L/S Spine w Bend Min 6 Vw IMPRESSION: No fracture or spondylolysis. No spondylolisthesis. Degenerative changes. Electronically Signed: Paul Vences, at 0:04 EST , CC: Dr. Maddy Beard MD Banking Management Consulting Manager: Signed [facility] HNO ID: [id number] Author: COORDINATOR, MAMMOGRAPHY, ? Service: ? Author Type: Physician Type: Letter Filed: 05/08/2024 13:45 Note Text: May 10, 2024 PID: [id number] Americo Lees [address] [place] [id number] Dear Ms. Lees, We are pleased to inform you that the results of your recent breast imaging exam on 05/08/2024 are normal. Early detection of cancer is very important. We also understand recommendations regarding breast cancer screening are controversial. Please discuss with your primary care provider which strategy is best for you and whether a mammogram is right for you. Your imaging studies and report will be kept on file at [facility] as part of your permanent medical record and are available for your continuing care. Thank you for allowing us to help in meeting your health care needs. Sincerely, Dr. Smith Interpreting Radiologist [facility] (Normal over 40) Normal [facility] CNOVon 05-08-2024 CNOV Office Visit (OBGYWM ) AMERICO LEES ([id number]) 1955 F Date Time Provider Department 05/08/24 2:20 PM GUIDO ADAN OBGYWM During your visit today, we recorded the following information about you: Blood pressure Weight Height 122/78 65.3 kg 1.607 m Guido Adan MD 05/08/2024 1:50 PM Signed Americo is a 69 year old who presents for an annual gynecologic exam without complaints. Uses clobetasol occasionally for 2-3 days and then resolves. Postmenopausal: yes OB History T0 L2 SAB0 IAB0 Ectopic0 Multiple0 Live Births0 Comment: 2 vaginal deliveries International Account Manager History LMP: Postmenopausal Age at Menarche: Age at First : Age at Menopause: International Account Manager History Comments: Sexual Activity: Yes; No partner [...] Social History Tobacco Use Smoking status: Never Smokeless tobacco: Never Vaping Use Vaping Use: Never used Substance [...] retraction Allergies and current medication updated:Yes EXAM: BP 122/78 Ht 5' 3.25 (1.61m) Wt 144 lb (65.3kg) BMI 25.29 kg/(m2). GENERAL: pleasant, female in no apparent distress HEENT: Normocephalic, atraumatic, mucus membranes moist, and no lesions NECK: Supple, full range of motion, no adenopathy, and thyroid normal BREAST: soft, non-tender, symmetric, no dominant mass, normal nipple-areolar complex, no lymphadenopathy, and no nipple discharge CHEST: Normal inspiratory effort ABDOMEN: soft, non-tender, and no masses PELVIC: external genitalia normal, normal Bartholin's glands, urethra, [place]'s glands, no vulvar lesions, no cervical lesions, good vaginal support, physiologic discharge present, normal appearing perineal body and perianal region, atrophic flattened epithelium BIMANUAL: uterus normal size, shape and consistency, no adnexal masses, and non-tender RECTOVAGINAL: deferred. NEURO: alert and oriented x3,exam grossly non-focal EXTREMITIES: normal ASSESSMENT/PLAN: 1) Health maintenance: Pap/HPV screening no longer needed Mammogram ordered Colon cancer screening: up to date with screening other screens per PCP. Clobetasol for prn use 2) Follow up one year or sooner as needed Guido Adan MD Referring Provider: GUIDO ADAN [[id number]] Allergies As of Date: 05/08/2024 Noted Allergy Reaction SULFACETAMIDE 12/20/2011 8 - GI Upset Date Reviewed: 05/08/2024 Reviewed by: Guido Adan MD - Fully Assessed Reason for Visit: Yearly Exam [187] Primary Visit Diagnosis:Encounter for gynecological examination (general) (routine) without abnormal findings [Z01.419] Other Visit Diagnosis:Encounter for screening mammogram for breast cancer [Z12.31] Order(s):[facility] SCREENING W JESSICA [[id number]] Order #: [id number] FUTURE clobetasol (TEMOVATE) 0.05 % ointmentApply 1 application to affected area as directed. pea-sized amount to vulvar area bid x 4 weeks, daily x 4 weeks then every other day for 4 weeksDisp: 45 gRfl: 0 Prescriptions as of 05/08/2024 - metoprolol succinate ER (TOPROL XL) 100 mg Take 1 tablet by mouth every afternoon. - clobetasol (TEMOVATE) 0.05 % ointment Apply [...] 25 mg by mouth twice daily. - xp-JA-EI-Tq-Pgx-Aynnde n-Lutein (CENTRUM) 0.4-162-18 mg ORAL Tab Take 1 tablet by mouth once daily. - aspirin, enteric coated (ADULT LOW DOSE ASPIRIN) 81 mg ORAL EC tablet Take 1 tablet by mouth once daily. - zolpidem (AMBIEN) 5 mg ORAL tab (more content not included)... Normal [facility] SCREENINGon 05-08-2024 [facility] SCREENING * * *Final Report* * * DATE OF EXAM: May 08 2024 1:24PM Chet 0581 - [facility] SCREENING / PROCEDURE REASON: Encounter for screening mammogram for malignant neoplasm of breast * * * * Physician Interpretation * * * * RESULT: #[id number] - [facility] SCREENING BILATERAL DIGITAL SCREENING MAMMOGRAM WITH CAD: 05/08/2024 HISTORY: /Screening Mammogram - patient reports NO breast symptoms Encounter For Screening Mammogram For Malignant Neoplasm Of Breast /priors available for comparison. RESULT: TECHNIQUE: The study was acquired using full field digital technology and interpreted from soft copy. Current study was also evaluated with a Computer Aided Detection (CAD). Comparison is made to exams dated: 12/11/2019 mammogram, 10/10/2018 mammogram, and 03/03/2014 mammogram - [facility]. Current study contains 6 films. There are scattered areas of fibroglandular density. There are mole markers on both breasts. No significant masses, calcifications, or other findings are seen in either breast. There has been no significant interval change. IMPRESSION: BENIGN FINDING There is no mammographic evidence of malignancy. A 1 year screening mammogram is recommended. The exam was reviewed by a staff physician. karthik Fairchild M.D., D.O./kesha:05/08/2024 13:45:48 Scroll Shear Operator(s): RT Rosaline(R)(M), [facility] letter sent: Normal over 40 Mammogram BI-RADS: 2 Benign finding Multiple national specialty organizations have released breast cancer screening guidelines for women at average risk for developing breast cancer - guidelines that are based on both evidence and opinion, yet differ on when to start and how often to screen for breast cancer. With representation from Breast Imaging, Internal Medicine, Women's Health, Family Medicine, and Medical/Surgical Oncology, the [facility] has carefully reviewed the data and reached the following consensus: 1) All women should engage in shared decision-making with their providers to decide when to start and how often to screen; 2) All women should have the opportunity to start screening mammography at age 40; 3) For women ages 45-55, we recommend annual screening mammograms; 4) For women ages 55 and over, we support both the transition from an annual to a biennial interval if this aligns more with patient's values and preferences, or continuation with annual screening; 5) All women should discuss with their providers when to stop screening mammograms. Banking Management Consulting Manager: Kesha Transcribe Date/Time: May 08 2024 1:12P Dictated by: MARISA WALTON DO This examination was interpreted and the report reviewed and electronically signed by: VANI SMITH MD on May 08 2024 1:45PM EST [id number] Normal [facility] Basophil percentageOrdered B y: Maddy Beard on 01-01-2024 Chloride [Moles/Vol] 98 mmol/L 98-107 [facility] Cholesterol [Mass/Vol] 177 mg/dL <200 [facility] Comment on above: <200 mg/dL Desirable 200-240 mg/dL Borderline >240 mg/dL High Risk Glucose [Mass/Vol] 82 mg/dL 74-106 [facility] Potassium [Moles/Vol] 3.9 mmol/L 3.5-5.1 [facility] Sodium [Moles/Vol] 134 mmol/L 136-145 [facility] Triglyceride [Mass/Vol] 289 mg/dL <199 [facility] Comment on above: The drugs N-Acetylcy steine and Metamizole may falsely depress this assay.Serum Triglycerides Reference Interval Normal <150 mg/dL Borderline high 150 - 199 mg/dL High 200 - 499 mg/dL Very High > or = 500 mg/dL Laboratory - Chemistry and C hemistry - challengeOrdered By: Maddy Beard on 01-01-2024 ALT [Catalytic activity/Vol] 38 U/L 13-56 [facility] Cholesterol in HDL [Mass/Vol] 40 mg/dL >40 [facility] Comment on above: The drugs N-Acetylcy steine and Metamizole may falsely depress this assay. Reference Range HDL <40 mg/dL Low HDL Cholesterol HDL >or= 60 mg/dL High HDL Cholesterol Cholesterol in LDL [Mass/Vol] 79 mg/dL 0-130 [facility] CO2 [Moles/Vol] 30.0 mmol/L 21.0-32.0 [facility] Urea nitrogen/Creatinine [Mass ratio] 21.7 mg/mg 10-20 [facility] No Panel InformationOrdered By: Maddy Beard on 01-01-2024 Estimated GFR (MDRD) Amer 94 mL/min >60 [facility] Comment on above: GFR Calc Estimated GFR (MDRD) Non-Af Amer 77 mL/min >60 [facility] Comment on above: Non- GFR Calc Urine Microalbumin/Creatinine Ratio TNP [facility] Comment on above: Test not performed VLDL Cholesterol 58 mg/dL 5-40 [facility] Serum or plasma calcium christophe urement (mass/volume)Ordered By: Maddy Beadr on 01-01-2024 Calcium [Mass/Vol] 9.0 mg/dL 8.5-10.1 [facility] Serum or plasma creatinine m easurement (mass/volume)Ordered By: Maddy Beard on 01-01-2024 Creatinine [Mass/Vol] 0.78 mg/dL 0.55-1.02 [facility] Comment on above: The validity of the calculated GFR & GFRAA in patients over 70 years has not been determined. Clinical correlation is essential. Serum or plasma urea nitroge n measurement (mass/volume)Ordered By: Maddy Beard on 01-01-2024 Urea nitrogen [Mass/Vol] 17 mg/dL 7-18 [facility] Thin prep Papanicolaou smear with manual screeningOrdered By: Maddy Beard on 01-01-2024 Thin prep Papanicolaou smear with manual screening 23 U/L 15-37 [facility] Thin prep Papanicolaou smear with manual screening 6 5-15 [facility] Thin prep Papanicolaou smear with manual screening < 5.0 mg/L NO RANGE EST. [facility] Urine creatinine measurement (mass/volume)Ordered By: Maddy Beard on 01-01-2024 Creatinine (U) [Mass/Vol] 26.10 mg/dL NO RANGE EST. [facility] CNPNon 12-29-2023 CNPN Telephone (OBGYWM) AMERICO LEES ([id number]) 1955 F Date Time Provider Department 12/29/23 GUIDO ADAN OBGYWM During your visit today, we recorded the following information about you: Tran Berry 12/29/2023 2:48 PM Signed Patient calling to schedule mammogram and annual. Patient's last mammogram was in 2019. Please advise and call patient. Guido Adan MD 12/30/2023 2:03 PM Signed ordered. Schedule. Guido Adan MD Allergies As of Date: 12/29/2023 Noted Allergy Reaction SULFACETAMIDE 12/20/2011 8 - GI Upset Date Reviewed: 05/16/2022 Reviewed by: Guido Adan MD - Fully Assessed Reason for Visit: Orders [681] Primary Visit Diagnosis:Encounter for screening mammogram for malignant neoplasm of breast [Z12.31] Order(s):[facility] SCREENING [[id number]] Order #: [id number] FUTURE Prescriptions as of 12/30/2023 - clobetasol (TEMOVATE) 0.05 % ointment Apply [...] 25 mg by mouth twice daily. - hs-HV-FD-Cu-Dwy-Iezuly n-Lutein (CENTRUM) 0.4-162-18 mg ORAL Tab Take 1 tablet by mouth once daily. - aspirin, enteric coated (ADULT LOW DOSE ASPIRIN) 81 mg ORAL EC tablet Take 1 tablet by mouth once daily. - zolpidem (AMBIEN) 5 mg ORAL tablet Take 1 tablet by mouth at bedtime as needed. FOR INSOMNIA Problem List As Of Date 12/29/2023 Noted Resolved Tachycardia [R00.0] 01/11/2013 ASCUS (atypical squamous cells of undetermined *01/11/2013 02/23/2022 Encounter Status:Closed by GUIDO ADAN on 12/30/23 Normal [facility] Barcenas Basophil percentageOrdered B y: Dr. Beard on 01-09-2023 Chloride [Moles/Vol] 101 mmol/L 98-107 [facility] Cholesterol [Mass/Vol] 176 mg/dL <200 [facility] Comment on above: <200 mg/dL Desirable 200-240 mg/dL Borderline >240 mg/dL High Risk Glucose [Mass/Vol] 92 mg/dL 74-106 [facility] Potassium [Moles/Vol] 4.0 mmol/L 3.5-5.1 [facility] Sodium [Moles/Vol] 137 mmol/L 136-145 [facility] Triglyceride [Mass/Vol] 210 mg/dL <199 [facility] Comment on above: The drugs N-Acetylcy steine and Metamizole may falsely depress this assay.Serum Triglycerides Reference Interval Normal <150 mg/dL Borderline high 150 - 199 mg/dL High 200 - 499 mg/dL Very High > or = 500 mg/dL Laboratory - Chemistry and C hemistry - challengeOrdered By: Dr. Beard on 01-09-2023 ALT [Catalytic activity/Vol] 38 U/L 13-56 [facility] CO2 [Moles/Vol] 30.0 mmol/L 21.0-32.0 [facility] Urea nitrogen/Creatinine [Mass ratio] 18.4 mg/mg 10-20 [facility] No Panel InformationOrdered By: Dr. Beard on 01-09-2023 Urine Microalbumin/Creatinine Ratio 5.5 mg/g CRE <30 [facility] Estimated GFR (MDRD) Amer 83 mL/min >60 [facility] Comment on above: GFR Calc Estimated GFR (MDRD) Non-Af Amer 69 mL/min >60 [facility] Comment on above: Non- GFR Calc Serum or plasma calcium christophe urement (mass/volume)Ordered By: Dr. Beadr on 01-09-2023 Calcium [Mass/Vol] 9.3 mg/dL 8.5-10.1 [facility] Serum or plasma cholesterol in HDL measurement (mass/volume)Ordered By: Dr. Beard on 01-09-2023 Cholesterol in HDL [Mass/Vol] 44 mg/dL >40 [facility] Comment on above: The drugs N-Acetylcy steine and Metamizole may falsely depress this assay. Reference Range HDL <40 mg/dL Low HDL Cholesterol HDL >or= 60 mg/dL High HDL Cholesterol Serum or plasma cholesterol in VLDL measurement (mass/volume)Ordered By: Dr. Beard on 01-09-2023 Cholesterol in VLDL [Mass/Vol] 42 mg/dL 5-40 [facility] Serum or plasma creatinine m easurement (mass/volume)Ordered By: Dr. Beard on 01-09-2023 Creatinine [Mass/Vol] 0.87 mg/dL 0.55-1.02 [facility] Comment on above: The validity of the calculated GFR & GFRAA in patients over 70 years has not been determined. Clinical correlation is essential. Serum or plasma low density lipoprotein (LDL) cholesterol measurement (mass/volume)Ordered By: Dr. Beard on 01-09-2023 Cholesterol in LDL [Mass/Vol] 90 mg/dL 0-130 [facility] Serum or plasma urea nitroge n measurement (mass/volume)Ordered By: Dr. Beard on 01-09-2023 Urea nitrogen [Mass/Vol] 16 mg/dL 7-18 [facility] Thin prep Papanicolaou smear with manual screeningOrdered By: Dr. Beard on 01-09-2023 Thin prep Papanicolaou smear with manual screening 8.2 mg/L NO RANGE EST. [facility] Thin prep Papanicolaou smear with manual screening 22 U/L 15-37 [facility] Thin prep Papanicolaou smear with manual screening 6 5-15 [facility] Urine creatinine measurement (mass/volume)Ordered By: Dr. Beard on 01-09-2023 Creatinine (U) [Mass/Vol] 151.00 mg/dL NO RANGE EST. [facility] Vital Signs Date Time Vital Sign Value Performing Clinician Faci lity 04-21-2025 09:19-0400 Body height 162.[address] Maddy Beard MD Work Phone: [facility] 04-21-2025 09:19-0400 Diastolic blood pressure 81 mm[Hg] Dr. Maddy Beard MD Work Phone: [facility] 04-21-2025 09:19-0400 Heart rate 77 /min Dr. Maddy Beard MD Work Phone: [facility] 04-21-2025 09:19-0400 Respiratory rate 16 /min Dr. Maddy Beard MD Work Phone: [facility] 04-21-2025 09:19-0400 Systolic blood pressure 143 mm[Hg] Dr. Maddy Beard MD Work Phone: [facility] 11-24-2024 21:27-0500 Body temperature 97.9 [degF] Dr. Maddy Beard MD Work Phone: [facility] 11-24-2024 21:27-0500 Diastolic blood pressure 92 mm[Hg] Dr. Maddy Beard MD Work Phone: [facility] 11-24-2024 21:27-0500 Heart rate 78 /min Dr. Maddy Beard MD Work Phone: [facility] 11-24-2024 21:27-0500 Respiratory rate 18 /min Dr. Maddy Beard MD Work Phone: [facility] 11-24-2024 21:27-0500 SaO2% (BldA) [Mass fraction] 99 % Dr. Maddy Beard MD Work Phone: [facility] 11-24-2024 21:27-0500 Systolic blood pressure 150 mm[Hg] Dr. Maddy Beard MD Work Phone: [facility] 11-24-2024 19:27-0500 Body height 162.[address] Maddy Beard MD Work Phone: [phone] [place] [address] 11-24-2024 19:27-0500 Body mass index (BMI) [Ratio] 26 kg/m2 Dr. Maddy Beard MD Work Phone: [phone] [place] [address] 11-24-2024 19:27-0500 Body weight 68.[address] Maddy Beard MD Work Phone: [phone] [place] [address] 11-13-2024 12:58-0500 Body mass index (BMI) [Ratio] 24.5 kg/m2 Dr. Maddy Beard MD Work Phone: [facility] 11-13-2024 12:58-0500 Body weight 64.[address] Maddy Beard MD Work Phone: [facility] 11-13-2024 12:58-0500 Diastolic blood pressure 86 mm[Hg] Dr. Maddy Beard MD Work Phone: [facility] 11-13-2024 12:58-0500 Heart rate 84 /min Dr. Maddy Beard MD Work Phone: [facility] 11-13-2024 12:58-0500 Respiratory rate 16 /min Dr. Maddy Beard MD Work Phone: [facility] 11-13-2024 12:58-0500 Systolic blood pressure 159 mm[Hg] Dr. Maddy Beard MD Work Phone: [facility] 05-08-2024 13:36-0400 Body height 160.7 cm Guido Adan MD Work Phone: [facility] 05-08-2024 13:36-0400 Body mass index (BMI) [Ratio] 25.31 kg/m2 Guido Adan MD Work Phone: [facility] 05-08-2024 13:36-0400 Body weight 65.32 kg Guido Adan MD Work Phone: [facility] 05-08-2024 13:36-0400 Diastolic blood pressure 78 mm[Hg] Guido Adan MD Work Phone: [facility] 05-08-2024 13:36-0400 Systolic blood pressure 122 mm[Hg] Guido Adan MD Work Phone: [facility] 05-16-2022 09:18-0400 Body weight 66.95 kg Guido Adan MD Work Phone: [facility] 05-16-2022 09:18-0400 Diastolic blood pressure 68 mm[Hg] Guido Adan MD Work Phone: [facility] 05-16-2022 09:18-0400 Systolic blood pressure 110 mm[Hg] Guido Adan MD Work Phone: [facility] 03-09-2022 11:47-0400 Body weight 67.59 kg Guido Adan MD Work Phone: [facility] 03-09-2022 11:47-0400 Diastolic blood pressure 84 mm[Hg] Guido Adan MD Work Phone: [facility] 03-09-2022 11:47-0400 Systolic blood pressure 170 mm[Hg] Guido Adan MD Work Phone: [facility] 02-23-2022 15:52-0400 Body height 161.9 cm Guido Adan MD Work Phone: [facility] 02-23-2022 15:52-0400 Body weight 68.04 kg Guido Adan MD Work Phone: [facility] 02-23-2022 15:52-0400 Diastolic blood pressure 80 mm[Hg] Guido Adan MD Work Phone: [facility] 02-23-2022 15:52-0400 Systolic blood pressure 128 mm[Hg] Guido Adan MD Work Phone: [facility] Encounters Encounter Date Encounter Type Care Provider Facility Start: 07-24-2025 End: 07-24-[address] Maddy Beard MD Work Phone: -Cat Scan [facility] Start: 07-24-2025 End: 07-24-[address] Jorge Lopez MD -Cat Scan [facility] Work Phone: Start: 07-24-2025 End: 07-[facility] Start: 06-24-2025 End: 06-24-[address] Maddy Beard MD Work Phone: -Laboratory [facility] Start: 06-24-2025 End: 06-24-[address] Jorge Lopez MD -Laboratory [facility] Start: 06-24-2025 End: 06-24-2025 [facility] Start: 05-06-2025 Non-patient / Non-visit Dr. Yunior BERTRAND -[facility] Work Phone: Start: 05-06-2025 Registered Referred Satya Thakkar NP-C -Cat Scan [facility] Work Phone: Start: 05-06-2025 ambulatory Adrian Ty Facility:[facility] Start: 04-21-2025 End: 04-21-2025 Patient encounter procedure Satya Thakkar NP-C -[facility] Work Phone: Start: 04-21-2025 End: 04-21-[address] Maddy Beard MD Work Phone: [facility] Work Phone: Start: 02-18-2025 End: 02-18-[address] Maddy Beard MD Work Phone: [facility] Work Phone: Start: 02-18-2025 End: 02-18-[address] Maddy Beard MD -Laboratory, [facility] Start: 02-18-2025 End: 02-18-2025 ambulatory Maddy Beard Facility:[facility] Start: 01-03-2025 End: 01-03-[address] Maddy Beard MD Work Phone: [facility] Work Phone: Start: 01-03-2025 End: 01-03-[address] Maddy Beard MD -Laboratory, [facility] Start: 01-03-2025 End: 01-03-2025 ambulatory Maddy Beard Facility:[facility] Start: 12-02-2024 End: 12-02-[address] Adrian Ty MD -Cardiovascular Services Work Phone: Start: 12-02-2024 ambulatory Adrian Ty Facility:[facility] Start: 12-02-2024 End: 12-02-2024 ambulatory Maddy S Chirag Facility:[facility] Start: 11-24-2024 End: 11-24-2024 Emergency department patient visit Dr. Edinson Henao DO -Emergency Department Work Phone: Start: 11-13-2024 End: 11-13-2024 ambulatory Maddy S Jackieiff Facility:[facility] Start: 11-13-2024 End: 11-13-[address] Adrian Ty MD -[facility] Work Phone: Start: 10-01-2024 End: 10-01-[address] Maddy Beard MD -Radiology, [place] Work Phone: Start: 10-01-2024 End: 10-01-2024 ambulatory Maddy S Chirag Facility:[facility] Start: 05-08-2024 End: 05-08-2024 Patient encounter procedure Guido Adan MD Work Phone: OB/Gynecology Comment on above: Encounter for gyneco logical examination (general) (routine) without abnormal findings (Primary Dx); Encounter for screening mammogram for breast cancer Start: 05-08-2024 End: 05-08-2024 Patient encounter status Guido Adan MD Work Phone: [facility] Start: 05-08-2024 Documentation procedure Mammog jason Coordinator [facility] Start: 05-08-2024 Letter encounter Mammography Coordinator [facility] Department Start: 05-08-2024 End: 05-08-2024 ambulatory GUIDO ADAN Facility:[facility] Start: 05-08-2024 End: 05-08-2024 Subsequent hospital visit by physician Screen Mammo [facility] Mammogram Comment on above: Encounter for screen ing mammogram for malignant neoplasm of breast [Z12.31] Start: 01-01-2024 End: 01-01-[address] [facility] Work Phone: Start: 01-01-2024 End: 01-01-2024 Patient encounter procedure [facility] Start: 12-29-2023 Telephone encounter Guido Adan MD Work Phone: OB/Gynecology Comment on above: Orders Start: 01-12-2023 End: 01-12-[address] [facility] Work Phone: Start: 01-12-2023 End: 01-12-[address] [facility]-Outpatient Bone Densitometry Start: 01-09-2023 End: 01-09-[address] [facility] Work Phone: Start: 01-09-2023 End: 01-09-2023 Patient encounter procedure [facility] Start: 05-16-2022 End: 05-16-2022 Patient encounter procedure Guido Adan MD Work Phone: OB/Gynecology Comment on above: Vulvar irritation (P rimary Dx) Start: 03-09-2022 Telephone encounter Guido Adan MD Work Phone: OB/Gynecology Comment on above: Patient Question (Vu lvar pain) Start: 03-09-2022 End: 03-09-2022 Patient encounter procedure Guido Adan MD Work Phone: OB/Gynecology Comment on above: Vulvar lesion (Prima ry Dx) Start: 02-23-2022 End: 02-23-2022 Patient encounter procedure Guido Adan MD Work Phone: OB/Gynecology Comment on above: Encounter for gyneco logical examination with abnormal finding (Primary Dx); Encounter for screening mammogram for breast cancer; Vulval lesion Start: 02-23-2022 End: 02-23-2022 Patient encounter status Guido Adan MD Work Phone: OB/Gynecology Procedures Date Procedure Procedure Detail Performing Clinician Start: 07-24-2025 CT of abdomen and pe lvis without contrast Dr. Maddy Beard MD Work Phone: Start: 05-06-2025 CT angiography of co ronary arteries Dr. Maddy Beard MD Work Phone: Start: 11-24-2024 Plain chest X-ray Dr. Sada Beard MD Work Phone: Start: 11-13-2024 Evaluation of diagno stic study results Dr. Maddy Beard MD Work Phone: Start: 10-01-2024 Complete x-ray serie s of lumbar spine with bending views Dr. Maddy Beard MD Work Phone: Start: 01-12-2023 Dual energy X-ray absorptiometry Start: 01-12-2023 Screening mammography Start: 12-11-2019 Mammography Guido garcia MD Work Phone: Start: 12-20-2008 Lipid 1996 panel - S dipika or Plasma Guido Adan MD Work Phone: Plan of Treatment Date Care Activity Detail Author Start: 05-13-2025 End: 05-13-2025 Patient encounter procedure 05/13/2025 2:20 PM EDT Office Visit OB/Gynecology [address] [place], [place] [id number] Guido Adan MD [address] [place] [id number] Annual Exam OB/Gynecology Comment on above: Annual Exam Start: 05-13-2025 End: 05-13-2025 Patient encounter procedure 05/13/2025 1:10 PM EDT Appointment Mammogram [address] [place] [address] Encounter for gynecological examination (general) (routine) without abnormal findings [Z01.419]; Encounter for screening mammogram for breast cancer [Z12.31] Mammogram Comment on above: Encounter for gyneco logical examination (general) (routine) without abnormal findings [Z01.419]; Encounter for screening mammogram for breast cancer [Z12.31] Start: 05-08-2025 Screening for malign ant neoplasm of breast Mammogram Screening [facility] Start: 11-24-2024 [facility] Start: 07-07-2024 Influenza vaccination Influenza Vacc ine (#1) [facility] Start: 11-06-2023 Advance Directive Discussion Advance Directive Discussion [facility] Start: 11-06-2023 Behavioral Health Screening Behavioral Health Screening [facility] Start: 11-06-2023 Depression Assessment Depression Ass essment [facility] Start: 10-09-2023 Urine microalbumin profile DTaP,Tdap,Td Vaccine (2 - Td or Tdap) [facility] Start: 07-07-2023 Covid-19 Vaccine ( season) Covid-19 Vaccine ( season) [facility] Start: 07-07-2023 Influenza vaccination Influenza Vacc ine (#1) [facility] Start: 07-07-2022 Influenza vaccination [facility] Start: 11-06-2021 ADVANCE DIRECTIVE DISCUSSION ADVANCE DIRECTIVE DISCUSSION [facility] Start: 08-25-2021 COVID-19 VACCINE (3 - Booster for Moderna series) COVID-19 VACCINE (3 - Booster for Moderna series) [facility] Start: 12-11-2020 Mammography MAMMOGRAM [facility] Start: 12-11-2020 Screening for malign ant neoplasm of breast Mammogram Screening [facility] Start: 05-14-2020 Pneumococcal Vaccine : 65+ (2 of 2 - PPSV23 or PCV20) Pneumococcal Vaccine: 65+ (2 of 2 - PPSV23 or PCV20) [facility] Start: 2019 BONE DENSITY BONE DENSITY [facility] Start: 2019 PNEUMOCOCCAL: 65+ (1 - PCV) PNEUMOCOCCAL: 65+ (1 - PCV) [facility] Start: 2019 PNEUMOVAX AGE 65 AND OVER WITH 5YR LOOKBACK (#1) PNEUMOVAX AGE 65 AND OVER WITH 5YR LOOKBACK (#1) [facility] Start: 2019 Screening for osteoporosis Bone Density Screening [facility] Start: 2014 RSV Vaccine (1 - 1-d ose 60+ series) RSV Vaccine (1 - 1-dose 60+ series) [facility] Start: 12-20-2013 Lipid panel Lipid Screening [facility] Start: 12-20-2013 LIPID SCREEN LIPID SCREEN [facility] Start: 01-22-2004 SHINGRIX VACCINE (1 of 2) SHINGRIX VACCINE (1 of 2) [facility] Start: 1999 COLOGUARD (FIT-DNA) COLOGUARD (FIT-D NA) [facility] Start: 1999 Colonoscopy COLONOSCOPY [facility] Start: 1999 COLORECTAL CANCER SCREENING COLORECTAL CANCER SCREENING [facility] Start: [address] COLONOGRAPHY [facility] Start: 1999 DIABETES SCREEN DIABETES SCREEN [facility] Start: 1999 Diabetes Screening Diabetes Screenin g [facility] Start: 1999 FECAL OCCULT BLOOD FECAL OCCULT BLOO D [facility] Start: 1999 Screening for malign ant neoplasm of colon [facility] Start: 1999 SIGMOIDOSCOPY SIGMOIDOSCOPY [facility] Start: 1973 Urine microalbumin profile DTAP,TDAP,TD (1 - Tdap) [facility] Start: 01-22-1972 HEPATITIS C SCREENING HEPATITIS C [facility] Start: 01-22-1972 Hepatitis C screening Hepatitis C [facility] Start: 1966 Adult depression screening assessment DEPRESSION SCREENING [facility] Biopsy vulva/perineu m 1 lesion spx BIOPSY OF VULVA Procedures Routine Vulval lesion Ordered: 02/23/2022 [facility] Work Phone: Comment on above: Ordered: 02/23/2022 Chlamydia trachomatis+Neisseria gonorrhoeae DNA [Presence] in Unspecified specimen by MASHA with probe detection GC/CHLAMYDIA DNA DET Lab Routine Vulval lesion Ordered: 02/23/2022 [facility] Work Phone: Comment on above: Ordered: 02/23/2022 CT angiography of coronary arteries [facility] End: 06-07-2025 DBT Breast - bilateral screening DEVAUGHN SCREENING W JESSICA Radiology Routine Encounter for gynecological examination (general) (routine) without abnormal findings Encounter for screening mammogram for breast cancer 1 Occurrences starting 05/08/2024 until 06/07/2025 [facility] Work Phone: Comment on above: 1 Occurrences starti ng 05/08/2024 until 06/07/2025 Hepatic function panel [facility] Lipid 1996 panel - S dipika or Plasma [facility] End: 01-27-2025 MG Breast Screening DEVAUGHN SCREENING Radiology Routine Encounter for screening mammogram for malignant neoplasm of breast 1 Occurrences starting 12/30/2023 until 01/27/2025 [facility] Work Phone: Comment on above: 1 Occurrences starti ng 12/30/2023 until 01/27/2025 MG Breast Screening DEVAUGHN SCREENIN G Radiology Routine Encounter for screening mammogram for malignant neoplasm of breast 05/08/2024 1:24 PM EDT [facility] Work Phone: Patient Education ED High Blood Pressure Hypertension ED Palpitations [facility] Work Phone: Patient referral [facility] Work Phone: End: 03-25-2023 Screening mammography bi 2-view breast inc cad DEVAUGHN SCREENING Radiology Routine Encounter for screening mammogram for breast cancer 1 Occurrences starting 02/23/2022 until 03/25/2023 [facility] Work Phone: Comment on above: 1 Occurrences starti ng 02/23/2022 until 03/25/2023 SURGICAL PATHOLOGY SURGICAL PATH OLOGY Lab Routine Vulvar lesion 03/09/2022 12:25 PM EDT [facility] Work Phone: T VAGINALIS AMPLIFICATION T VAGINALIS AMPLIFICATION Lab Routine Vulval lesion Ordered: 02/23/2022 [facility] Work Phone: Comment on above: Ordered: 02/23/2022 Narinder chris Payers Date Payer Category Payer Self-pay [id number] 2019 Unknown ANTHEM BLUE CROS S AND BLUE SHIELD ANTHEM MEDIBLUE ACCESS [id number] 2019-Present [phone] [address] [place] [address] PPO [id number] 2019 Unknown [id number] 2019 Medicare [id number] Medicare MEDICARE PART A B [id number] Medicare MEDICARE PART A B [id number] Unknown [id number] Unknown [id number] Unknown [id number] Unknown [id number] Unknown [id number] Unknown [id number] Unknown [id number] Unknown [id number] Unknown [id number] Unknown [id number] Unknown [id number] Unknown [id number] Unknown [id number] Social History Date Type Detail Facility Start: 05-08-2024 Tobacco smoking stat us SDIS Never smoked tobacco [facility] Start: 02-23-2022 End: 05-08-2024 Alcohol intake Current non-drinker of alcohol (finding) [facility] Start: 1955 Sex Assigned At Not on file [facility] Start: 02-13-2022 End: 05-16-2022 Exposure to SARS-CoV-2 (event) Not sure [facility] Start: 11-08-2019 End: 11-08-2019 Tobacco smoking status NHIS Unknown if ever smoked [facility] Start: 1955 Sex Assigned At Female [facility] Start: 05-16-2022 End: 05-08-2024 History of Social function [facility] Start: 05-16-2022 End: 05-08-[address] [facility] National Score (1-100), lower number is lower risk 51 [facility] Start: 05-08-2024 Tobacco use and exposure Smokeless tobacco non-user [facility] Start: 05-01-2024 Gender identity Identifies as female gender (finding) [facility] Start: 11-24-2024 Tobacco smoking stat us SDIS Ex-smoker (finding) [facility] Start: 01-16-2025 End: 02-24-2025 Sex Female (finding) [facility] Mental Status Date Assessment Result Facility 11-24-2024 Cognitive function Voice/Name [facility] Work Phone: Clinical Notes 01-11-2013 to 07-28-2025 Note Date & Type Note Facility 07-28-2025 Radiology Diagnostic study note [facility] Imaging Services [address] [place] [address] Abdomen/Pelvis without Cont MR#: [id number] Acct: [id number] Name: AMERICO LEES Rep #: [id number] : 1955 F 70 From: Tony Elkins MD PCP: Dr. Jorge Lopez MD Status: REG CL I Study:Abdomen/Pelvis without Cont Date of Exa m: 07/24/25 Exam# [id number] Ordering Dr: Aria Lopez MD PROCEDURE: ABDOMEN/PELVIS WITHOUT CONT 07/24/2025 REASON FOR EXAM: ABDOMINAL PAIN Several month history of diffuse abdominal pain. TECHNIQUE: Procedure Code: CTABDPEL Modality: CT Procedure: ABDOMEN/PELVIS WITHOUT CONT Noncontrast technique limits evaluation of the abdominal and pelvic viscera. Coronal and Sagittal reconstruction series were provided. One or more dose reduction techniques were used (e.g., Automated exposure control, adjustment of the mA and/or kV according to patient size, use of iterative reconstruction technique). RADIATION DOSE SUMMARY: CTDlvol: 6.36 mGy DLP: 317.92 mGycm COMPARISON: None FINDINGS: Lung bases: The lung bases are clear. Liver: Normal size. No obvious mass. Gallbladder: Unremarkable Spleen: Normal size. Pancreas: Normal size. No surrounding inflammation. Adrenals: Adrenal glands are unremarkable. Kidneys: No urolithiasis. No hydronephrosis. Bladder: Unremarkable Reproductive Organs: Atrophy of the uterus in keeping with the patient's age. Bowel: Colonic diverticulosis without diverticulitis. Appendix: The appendix is not identified. There is no inflammatory process identified in the right lower quadrant to suggest appendicitis. Lymph nodes: Unremarkable. Vasculature: Mild diffuse atherosclerotic calcifications are noted. Peritoneum / Retroperitoneum: Unremarkable Bones: Disc space narrowing at the L4-L5 level. Loss of the normal lumbar lordosis. CT/Abdomen/Pelvis without Cont IMPRESSION: Sigmoid diverticulosis. No acute abnormality is seen. Reading Location: [place] [address] CC: Dr. Jorge Lopez MD ~ Banking Management Consulting Manager: Signed [facility] 04-21-2025 Evaluation note Diagnosis Onset Date Resolution Elevated cholesterol acute April 21, 2025 9:15am Essential (primary) hypertension acute April 21, 2025 9:15am Fatigue acute April 21 9:15am [facility] Work Phone: 1(772) 837-950501-08-2025 Evaluation note* Diagnosis Onset Date Resolution Status Admit Date Elevated cholesterol acute Mariano ninoska 2024 12:56pm Essential (primary) hypertension acute November 13 12:56pm [facility] Work Phone: 1(487) 133-680907-03-2024 Note* Letter - Coordinator, Mammography - 05/08/2024 1:45 PM EDT May 10, 2024 PID: [id number] Americo [address] [place] [address] Dear Ms. Lees, We are pleased to inform you that the results of your recent breast imaging exam on 05/08/2024 are normal. Early detection of cancer is very important. We also understand recommendations regarding breast cancer screening are controversial. Please discuss with your primary care provider which strategy is best for you and whether a mammogram is right for you. Your imaging studies and report will be kept on file at [facility] as part of your permanent medical record and are available for your continuing care. Thank you for allowing us to help in meeting your health care needs. Sincerely, Dr. Smith Interpreting Radiologist [facility] (Normal over 40) [facility]07-03-2024 Miscellaneous Notes* Letter - Coordinator, Mammography - 05/08/2024 1:45 PM EDT May 10, 2024 PID: [id number] Americo [address] [place] [address] Dear Ms. Lees, We are pleased to inform you that the results of your recent breast imaging exam on 05/08/2024 are normal. Early detection of cancer is very important. We also understand recommendations regarding breast cancer screening are controversial. Please discuss with your primary care provider which strategy is best for you and whether a mammogram is right for you. Your imaging studies and report will be kept on file at [facility] as part of your permanent medical record and are available for your continuing care. Thank you for allowing us to help in meeting your health care needs. Sincerely, Dr. Smith Interpreting Radiologist [facility] (Normal over 40) documented in this encounterChildren'S [facility]07-03-2024 NoteHNO ID: [id number] Author: GUIDO ADAN MD Service: ? Author Type: Physician Type: Progress Notes Filed: 05/08/2024 13:50 Note Text: Americo is a 69 year old who presents for an annual gynecologic exam without complaints. Uses clobetasol occasionally for 2-3 days and then resolves. Postmenopausal: yes OB History T0 L2 SAB0 IAB0 Ectopic0 Multiple0 Live Births0 Comment: 2 vaginal deliveries International Account Manager History LMP: Postmenopausal Age at Menarche: Age at First : Age at Menopause: International Account Manager History Comments: Sexual Activity: Yes; No partner [...] Social History Tobacco Use Smoking status: Never Smokeless tobacco: Never Vaping Use Vaping Use: Never used Substance [...] retraction Allergies and current medication updated:Yes EXAM: BP 122/78 Ht 5' 3.25 (1.61m) Wt 144 lb (65.3kg) BMI 25.29 kg/(m2). GENERAL: pleasant, female in no apparent distress HEENT: Normocephalic, atraumatic, mucus membranes moist, and no lesions NECK: Supple, full range of motion, no adenopathy, and thyroid normal BREAST: soft, non-tender, symmetric, no dominant mass, normal nipple-areolar complex, no lymphadenopathy, and no nipple discharge CHEST: Normal inspiratory effort ABDOMEN: soft, non-tender, and no masses PELVIC: external genitalia normal, normal Bartholin's glands, urethra, Cerrillos Hoyos's glands, no vulvar lesions, no cervical lesions, good vaginal support, physiologic discharge present, normal appearing perineal body and perianal region, atrophic flattened epithelium BIMANUAL: uterus normal size, shape and consistency, no adnexal masses, and non-tender RECTOVAGINAL: deferred. NEURO: alert and oriented x3,exam grossly non-focal EXTREMITIES: normal ASSESSMENT/PLAN: 1) Health maintenance: Pap/HPV screening no longer needed Mammogram ordered Colon cancer screening: up to date with screening other screens per PCP. Clobetasol for prn use 2) Follow up one year or sooner as needed Guido Adan [facility]07-03-2024 History of Present illness Narrative* Guido Adan MD - 05/08/2024 1:30 PM EDT Americo is a 69 year old who presents for an annual gynecologic exam without complaints. Uses clobetasol occasionally for 2-3 days and then resolves. Postmenopausal: yes OB History T0 L2 SAB0 IAB0 Ectopic0 Multiple0 Live Births0 Comment: 2 vaginal deliveries International Account Manager History LMP: Postmenopausal Age at Menarche: Age at First : Age at Menopause: International Account Manager History Comments: Sexual Activity: Yes; No partner [...] Social History Tobacco Use Smoking status: Never Smokeless tobacco: Never Vaping Use Vaping Use: Never used Substance [...] retraction Allergies and current medication updated:Yes EXAM: BP 122/78 Ht 5' 3.25 (1.61m) Wt 144 lb (65.3kg) BMI 25.29 kg/(m^2). GENERAL: pleasant, female in no apparent distress HEENT: Normocephalic, atraumatic, mucus membranes moist, and no lesions NECK: Supple, full range of motion, no adenopathy, and thyroid normal BREAST: soft, non-tender, symmetric, no dominant mass, normal nipple-areolar complex, no lymphadenopathy, and no nipple discharge CHEST: Normal inspiratory effort ABDOMEN: soft, non-tender, and no masses PELVIC: external genitalia normal, normal Bartholin's glands, urethra, Cerrillos Hoyos's glands, no vulvar lesions, no cervical lesions, good vaginal support, physiologic discharge present, normal appearing perineal body and perianal region, atrophic flattened epithelium BIMANUAL: uterus normal size, shape and consistency, no adnexal masses, and non-tender RECTOVAGINAL: deferred. NEURO: alert and oriented x3,exam grossly non-focal EXTREMITIES: normal ASSESSMENT/PLAN: 1) Health maintenance: Pap/HPV screening no longer needed Mammogram ordered Colon cancer screening: up to date with screening other screens per PCP. Clobetasol for prn use 2) Follow up one year or sooner as needed Guido Adan MD documented in this encounterChildren[facility] History of Present illness Narrative* Jae Bermeo Mammo Tech - 05/08/2024 1:30 PM EDT Radiology Service Progress Note PATIENT NAME: Americo Lees DATE OF SERVICE: May 08, 2024 TIME: 1:23 PM PATIENT IDENTITY VERIFICATION COMPLETED USING TWO (2) IDENTIFIERS: Name and Date of confirmedby patient verbally. FALL SCREENING: Has the patient had 2 falls in the last year or 1 fall with injury or currently using an Ambulatory Assistive Device (Walker, Cane, Wheelchair, Crutches, etc.)? No PATIENT GENDER DATA: Female. status: : No status: NO. PATIENT RELEVANT IMPLANT DATA REVIEWED: Not Applicable PATIENT PRESENTS WITH AN IMPLANTABLE OR ATTACHED POWER DRIVEN BRUSH MAKER: No RADIOLOGY DEPARTMENT: Mammography PERIPHERAL IV DATA: Not applicable SIGNED BY: Terrell Waggoner May 08, 2024 1:23 PM documented in this encounterChildren'S [facility]07-03-2024 NoteHNO ID: [id number] Author: JAE BERMEO Mammo Tech Service: ? Author Type: Anesthesia Director Type: Progress Notes Filed: 05/08/2024 13:23 Note Text: Radiology Service Progress Note PATIENT NAME: Americo Lees DATE OF SERVICE: May 08, 2024 TIME: 1:23 PM PATIENT IDENTITY VERIFICATION COMPLETED USING TWO (2) IDENTIFIERS: Name and Date of confirmed by patient verbally. FALL SCREENING: Has the patient had 2 falls in the last year or 1 fall with injury or currently using an Ambulatory Assistive Device (Walker, Cane, Wheelchair, Crutches, etc.)? No PATIENT GENDER DATA: Female. status: : No status: NO. PATIENT RELEVANT IMPLANT DATA REVIEWED: Not Applicable PATIENT PRESENTS WITH AN IMPLANTABLE OR ATTACHED POWER DRIVEN BRUSH MAKER: No RADIOLOGY DEPARTMENT: Mammography PERIPHERAL IV DATA: Not applicable SIGNED BY: Terrell Waggoner May 08, 2024 1:23 [facility]02-24-2024 Miscellaneous Notes* Telephone Encounter - Guido Adan MD - 12/30/2023 2:03 PM EST ordered. Schedule. Guido Adan MD * Telephone Encounter - Tran Berry - 12/29/2023 2:46 PM EST Patient calling to schedule mammogram and annual. Patient's last mammogram was in 2019. Please advise and call patient. documented in this encounterChildren'[facility]07-11-2022 History of Present illness Narrative* Guido Adan MD - 05/16/2022 9:14 AM EDT Americo Lees is a 67 year old female who presents for problem visit for f/u vulvar irritation. S/p biopsy. No definitive lichen planus or sclerosis. Feels much better. on steroid ointment taper, usingevery other day. No pruritis or burning. No dysuria. OB History T0 L2 SAB0 IAB0 Ectopic0 Multiple0 Live Births0 Comment: 2 vaginal deliveries International Account Manager History LMP: Postmenopausal Age at Menarche: Age at First : Age at Menopause: International Account Manager History Comments: Sexual Activity: Yes; No partner [...] Take 25 mg by mouth twice daily. nn-WS-WG-Sh-Flt-Zfitocw-Lutein (CENTRUM) 0.4-162-18 mg ORAL Tab Take 1 [...] ulcerations or hyperpigmentation, normal Bartholin's glands, urethra, Cerrillos Hoyos's glands, no vulvar lesions, no cervical lesions, [...] She agrees w/ plan Medical Decision Making Guido Adan MD documented in this encounterChildren'S [facility]05-04-2022 Miscellaneous Notes* Telephone Encounter - Sandrita Gilman RN - 03/09/2022 2:51 PM EDT Patient notified. Sandrita Gilman RN * Telephone Encounter - Guido Adan MD - 03/09/2022 2:46 PM EDT tylenol, ibuprofen. Can soak in some plain warm water. Use cold packs prn. Keep it covered w/ Neosporin, Aquaphor or Vaseline to help with the burning. Guido Adan MD * Telephone Encounter - Lissa Mcnally RN - 03/09/2022 2:19 PM EDT Patient seen in office today for vulvar biopsy. States the area is burning so badly she can't thinkabout anything else. Did apply Neosporin. Wearing loose fitting clothing. Inquired if patient can take Tylenol or NSAID. Patient can take Tylenol and will see if that helps. Do you have further recommendations? Lissa Mcnally RN documented in this encounterChildren'S [facility]05-04-2022 History of Present illness Narrative* Guido Adan MD - 03/09/2022 11:39 AM EDT Americo Lees is a 67 year old [...] Care Visit completed when applicable. Carmel Billingsley LPN PROCEDURE NOTE: GROSS LESIONS: Yes, right labium [...] and written material given to the patient. Guido Aadn MD documented in this encounterChildren'S [facility]04-20-2022 History of Present illness Narrative* Guido Adan MD - 02/23/2022 3:50 PM EDT Americo is a 67 year old who [...] Multiple0 Live Births0 Comment: 2 vaginal deliveries International Account Manager History LMP: Postmenopausal Age at Menarche: Age at First : Age at Menopause: International Account Manager History Comments: Sexual Activity: Yes; No partner [...] majora and periurethra., normal Bartholin's glands, urethra, Cerrillos Hoyos's glands, no vulvar lesions, no cervical lesions, [...] up one year or sooner as needed Guido Adan MD documented in this encounterChildren'S [facility]03-08-2013 History of Past illness Narrative* Problem Noted Date Resolved Date ASCUS (atypical squamous yahir ls of undetermined significance) on Pap smear 01/11/2013 02/23/2022 documented as of this encounter (statuses as of 02/23/2022) [facility] History of Past illness Narrative* Problem Noted Date Resolved Date ASCUS (atypical squamous yahir ls of undetermined significance) on Pap smear 01/11/2013 02/23/2022 documented as of this encounter (statuses as of 03/09/2022) [facility] History of Past illness Narrative* Problem Noted Date Resolved Date ASCUS (atypical squamous yahir ls of undetermined significance) on Pap smear 01/11/2013 02/23/2022 documented as of this encounter (statuses as of 03/09/2022) [facility] History of Past illness Narrative* Problem Noted Date Resolved Date ASCUS (atypical squamous yahir ls of undetermined significance) on Pap smear 01/11/2013 02/23/2022 documented as of this encounter (statuses as of 05/16/2022) [facility] History of Past illness Narrative* Problem Noted Date Diagnosed Date Resolved Date ASCUS (atypical squamous yahir ls of undetermined significance) on Pap smear 01/11/2013 02/23/2022 documented as of this encounter (statuses as of 12/30/2023) [facility] Diagnosis Encounter for gynecological examination with abnormal finding- Primary Routine gynecological examination Encounter for screening mammogram for breast cancer Vulval lesion Other specified noninflammatory disorder of vulva and perineum documented in this encounter [facility]* Diagnosis Vulvar lesion- Primary Other specified noninflammatory disorder of vulva and perineum documented in this encounter [facility]* Diagnosis Vulvar irritation- Primary Other specified noninflammatory disorder of vulva and perineum documented in this encounter [facility] noteNo assessment information availableWWhite Hospital Work Phone: Evaluation note* Diagnosis Encounter for screening mammogram for malignant neoplasm of breast- Primary Other screening mammogram documented in this encounter [facility]* Diagnosis Encounter for gynecological examination (general) (routine) without abnormal findings- Primary Encounter for screening mammogram for breast cancer documented in this encounter [facility]* Diagnosis Encounter for screening mammogram for malignant neoplasm of breast Other screening mammogram documented in this encounter [facility]* Diagnosis Onset Date Resolution Status Admit Date Elevated cholesterol acute April 21, 2025 9:15am Essential (primary) hypertension acu te April 21, 2025 9:15am Fatigue acute April 21 9:15am [facility] Work Phone: Reason for referral (narrative)* Diagnostic Procedure Only (Routine) - Pending Review Specialty Diagnoses / Procedures Referred By Barbara mayers Referred To Contact [facility] Diagnoses Encounter for gynecological examination (general) (routine) without abnormal findings Encounter for screening mammogram for breast cancer Procedures DEVAUGHN SCREENING SCREENING MAMMOGRAPHY BI 2-VIEW BREAST INC Guido Yu MD [address] [place] [address] [facility] [address] [place] [address] Referral ID Status Reason Start Date Expiration Date Visits Requested Visits Authorized [id number] Pending Review Auto-Generat ed Referral 02/23/2022 03/25/2023 1 1 [facility] for referral (narrative)* Diagnostic Procedure Only (Routine) - Pending Review Specialty Diagnoses / Procedures Referred By Barbara mayers Referred To Contact [facility] Diagnoses Encounter for screening mammogram for malignant neoplasm of breast Procedures DEVAUGHN SCREENING SCREENING MAMMOGRAPHY BI 2-VIEW BREAST INC Guido Yu MD [address] [place] [address] [facility] [address] [place] [address] Referral ID Status Reason Start Date Expiration Date Visits Requested Visits Authorized [id number] Pending Review Auto-Generat ed Referral 12/30/2023 01/27/2025 1 1 [facility] for referral (narrative)* Diagnostic Procedure Only (Routine) - Authorized Specialty Diagnoses / Procedures Referred By Barbara mayers Referred To Contact [facility] Diagnoses Encounter for gynecological examination (general) (routine) without abnormal findings Encounter for screening mammogram for breast cancer Procedures DEVAUGHN SCREENING W JESSICA SCREENING DIGITAL BREAST TOMOSYNTHESIS BI SCREENING MAMMOGRAPHY BI 2-VIEW BREAST INC Guido Yu MD [address] [place] [address] [facility] [address] [place] [address] Referral ID Status Reason Start Date Expiration Date Visits Requested Visits Authorized [id number] Authorized Auto-Generat ed Referral 05/08/2024 06/07/2025 1 1 [facility] for referral (narrative)No reason for referral information availableWWhite Hospital Work Phone: Reason for visit Narrative* Diagnostic Procedure Only (Routine) - Closed Specialty Diagnoses / Procedures Referred By Contac t Referred To Contact [facility] Diagnoses Encounter for screening mammogram for malignant neoplasm of breast Procedures DEVAUGHN SCREENING SCREENING MAMMOGRAPHY BI 2-VIEW BREAST INC CAD Guido Adan MD [address] [place] [address] [facility] [address] [place] [address] Referral ID Status Reason Start Date Expiration Date V isits Requested Visits Authorized [id number] Closed Auto-Generate d Referral 12/30/2023 01/27/2025 1 1 [facility] Chief Complaint and Reason for Visit Chief Complaint SCREENING/POST BRIANA Chief Complaint Admit Date left leg pain October 01, 2024 11:35am BP/RE-EST (SELF) November 13, 2024 12 :56pm palpitation November 24, 2024 7 :22pm HYPERTENSION December 02, 2024 1 2:39pm Reason for Visit Admit Date Elevated cholesterol November 13, 2024 1 2:56pm Essential (primary) hypertension November 13, 2024 12:56pm Chief Complaint Admit Date BP/RE-EST (SELF) November 13, 2024 12 :56pm palpitation November 24, 2024 7 :22pm HYPERTENSION December 02, 2024 1 2:39pm Chief Complaint Admit Date 5 M FU April 21, 2025 9:15 am Reason for Visit Admit Date Elevated cholesterol April 21, 2025 9:1 5am Essential (primary) hypertension April 212024 9:15am Fatigue April 21, 2025 9:15 am Chief Complaint Admit Date 5 M FU April 21, 2025 9:15 am Family History of [place] (RONY) May 06, 025 6:29am CT CALCIUM SCORING May 06, 2025 6:30a m Chief Complaint Admit Date 5 M FU Nitza 16th, 2025 9:15 am Family History of [place] (RONY) May 06 6:29am CT CALCIUM SCORING May 06, 2025 6:30a m ABD PAIN July 24, 2025 6:39pm Advance Directives No Advanced Directives Records Found Advance Directive Response Recorded Date/ Time Living Will No November 08 0 10:16pm Power of Prison Officer No November 08 10:16pm Advance Directive Response Recorded Date/ Time Living Will No November 08 0 9:16pm Power of Prison Officer No November 08 9:16pm Advance Directive Response Recorded Date/ Time Living Will No November 24 8:27pm Power of Prison Officer No November 24, 2024 8:27pm Advance Directive Response Recorded Date/ Time Living Will No November 24 8:27pm Do you have a Healthcare Power of Prison Officer? No November 24, 2024 8:27pm Summary Purpose Family History No Family History Records Found Relationship Condition Age at Onset Recorded Date/T brigid sister Myocardial infarction Unknown brother Myocardial infarction Unknown father Myocardial infarction Unknown Additional Source Comments Source Comments (unrecognize d section and content) In the event this informatio n is protected by the Federal Confidentiality of Alcohol and Drug Abuse Patient Records regulations: The Federal rules restrict any use of the information to criminally investigate or prosecute any alcohol or drug abuse patient.[facility] the event this information is protected by the Federal Confidentiality of Alcohol and Drug Abuse Patient Records regulations: The Federal rules restrict any use of the information to criminally investigate or prosecute any alcohol or drug abuse patient.[facility] Columbus[facility] the event this information is protected by the Federal Confidentiality of Alcohol and Drug Abuse Patient Records regulations: The Federal rules restrict any use of the information to criminally investigate or prosecute any alcohol or drug abuse patient.[facility] ColumbusIn the event this information is protected by the Federal Confidentiality of Alcohol and Drug Abuse Patient Records regulations: The Federal rules restrict any use of the information to criminally investigate or prosecute any alcohol or drug abuse patient.[facility] ColumbusIn the event this information is protected by the Federal Confidentiality of Alcohol and Drug Abuse Patient Records regulations: The Federal rules restrict any use of the information to criminally investigate or prosecute any alcohol or drug abuse patient.[facility] ColumbusIn the event this information is protected by the Federal Confidentiality of Alcohol and Drug Abuse Patient Records regulations: The Federal rules restrict any use of the information to criminally investigate or prosecute any alcohol or drug abuse patient.[facility] ColumbusIn the event this information is protected by the Federal Confidentiality of Alcohol and Drug Abuse Patient Records regulations: The Federal rules restrict any use of the information to criminally investigate or prosecute any alcohol or drug abuse patient.[facility] ColumbusIn the event this information is protected by the Federal Confidentiality of Alcohol and Drug Abuse Patient Records regulations: The Federal rules restrict any use of the information to criminally investigate or prosecute any alcohol or drug abuse patient.[facility] Care Teams (unrecognized sec tion and content) Railroad Operating Engineer Relationship Specialty Start Date End Date Maddy Beard PCP - General Family Practice 02/04/14 Railroad Operating Engineer Relationship Specialty Start Date End Date Maddy Beard PCP - General Family Practice 02/04/14 Railroad Operating Engineer Relationship Specialty Start Date End Date Maddy Beard PCP - General Family Practice 02/04/14 Railroad Operating Engineer Relationship Specialty Start Date End Date Maddy eBard PCP - General Family Practice 02/04/14 Team Status: Active Member Role Status Dates Dr. Maddy Beard MD Family Provider Active Dr. Maddy Beard MD Primary Care Provider Active Team Status: Active Member Role Status Dates Dr. Maddy Beard MD Primary Care Prov ider, Attending Provider, Referring Provider Active Team Status: Inactive Member Role Status Dates Dr. Maddy Beard MD Primary Care Provider, Attendin g Provider Active Team Status: Inactive Member Role Status Dates Dr. Maddy Beard MD Primary Care Prov ider, Attending Provider, Referring Provider Active [employer] Operating [employer] Relationship Specialty Start Date End Date JackieryanMaddy PCP - General Family Medicine 02/04/14 [employer] Operating [employer] Relationship Specialty Start Date End Date Maddy Beard PCP - General Family Medicine 02/04/14 Railroad Operating Engineer Relationship Specialty Start Date End Date KarolzayraryanMaddy PCP - General Family Medicine 02/04/14 Railroad Operating Engineer Relationship Specialty Start Date End Date KarolzayraryanMaddy PCP - General Family Medicine 02/04/14 Team Status: Inactive Member Role Status Dates Dr. Maddy Beard MD Primary Care Provider Active Start: October 01, 2024 End: October 01, 2024 Dr. Maddy Beard MD Attending Provider Active Start: October 01, 2024 End: October 01, 2024 Dr. Maddy Beard MD Referring Provider Active Start: October 01, 2024 End: October 01, 2024 Team Status: Inactive Member Role Status Dates Dr. Maddy Beard MD Primary Care Provider Active Start: November 13, 2024 End: November 13, 2024 Dr. Maddy Beard MD Referring Provider Active Start: November 13, 2024 End: November 13, 2024 Dr. Adrian Ty MD Attending Provider Active S tart: November 13, 2024 End: November 13, 2024 Team Status: Inactive Member Role Status Dates Dr. Maddy Beard MD Primary Care Provider Active Start: November 24, 2024 End: November 24, 2024 Dr. Edinson Henao DO Attending Provider Active Start: November 24, 2024 End: November 24, 2024 Dr. Edinson Henao DO Emergency Provider Active Start: November 24, 2024 End: November 24, 2024 Team Status: Inactive Member Role Status Dates Dr. Maddy Beard MD Primary Care Provider Active Start: December 02, 2024 End: December 02, 2024 Dr. Adrian Ty MD Attending Provider Active S tart: December 02, 2024 End: December 02, 2024 Dr. Adrian Ty MD Referring Provider Active S tart: December 02, 2024 End: December 02, 2024 Team Status: Inactive Member Role Status Dates Dr. Maddy Beard MD Primary Care Provider Active Start: January 03, 2025 End: January 03, 2025 Dr. Maddy Beard MD Attending Provider Active Start: January 03, 2025 End: January 03, 2025 Dr. Maddy Beard MD Referring Provider Active Start: January 03, 2025 End: January 03, 2025 Team Status: Inactive Member Role Status Dates Dr. Maddy Beard MD Primary Care Provider Active Start: February 18, 2025 End: February 18, 2025 Dr. Maddy Beard MD Attending Provider Active Start: February 18, 2025 End: February 18, 2025 Dr. Maddy Beard MD Referring Provider Active Start: February 18, 2025 End: February 18, 2025 Team Status: Active Member Role Status Dates Jorge Lopez MD Primary Care Provider Active Team Status: Inactive Member Role Status Dates Dr. Maddy Beard MD Referring Provider Active Start: April 21, 2025 End: April 21, 2025 Satya Thakkar TECHNICAL SUPPORT SPECIALIST, TECHNICAL SUPPORT SPECIALIST-C Attending Provider Active S tart: April 21, 2025 End: April 21, 2025 Jorge Lopez MD Primary Care Provider Active St art: April 21, 2025 End: April 21, 2025 Team Status: Active Member Role/Relationship Status Dates Jorge Lopez MD Primary Care Provider Active Team Status: Inactive Member Role/Relationship Status Dates Dr. Maddy Beard MD Referring Provider Active Start: April 21, 2025 End: April 21, 2025 Satya Thakkar TECHNICAL SUPPORT SPECIALIST, TECHNICAL SUPPORT SPECIALIST-C Attending Provider Active S tart: April 21, 2025 End: April 21, 2025 Jorge Lopez MD Primary Care Provider Active St art: April 21, 2025 End: April 21, 2025 Team Status: Active Member Role/Relationship Status Dates Jorge Lopez MD Primary Care Provider Active St art: May 06, 2025 Satya Thakkar TECHNICAL SUPPORT SPECIALIST, TECHNICAL SUPPORT SPECIALIST-C Attending Provider Active S tart: May 06, 2025 Satya Thakkar TECHNICAL SUPPORT SPECIALIST, TECHNICAL SUPPORT SPECIALIST-C Referring Provider Active S tart: May 06, 2025 Team Status: Active Member Role/Relationship Status Dates Jorge Lopez MD Primary Care Provider Active St art: May 06, 2025 Dr. Adrian Ty MD Attending Provider Active S tart: May 06, 2025 Dr. Adrian Ty MD Referring Provider Active S tart: May 06, 2025 Team Status: Inactive Member Role/Relationship Status Dates Jorge Lopez MD Primary Care Provider Active St art: June 24, 2025 End: June 24, 2025 Jorge Lopez MD Attending Provider Active Start : June 24, 2025 End: June 24, 2025 Jorge Lopez MD Referring Provider Active Start : June 24, 2025 End: June 24, 2025 Team Status: Active Member Role/Relationship Status Chin Lopez MD Primary care physician Active Team Status: Inactive Member Role/Relationship Status Dates Dr. Maddy Beard MD Referring Provider Active Start: April 21, 2025 End: April 21, 2025 Satya Thakkar TECHNICAL SUPPORT SPECIALIST, TECHNICAL SUPPORT SPECIALIST-C Attending physician Active Start: April 21, 2025 End: April 21, 2025 Jorge Lopez MD Primary care physician Active S tart: April 21, 2025 End: April 21, 2025 Team Status: Active Member Role/Relationship Status Dates Jorge Lopez MD Primary care physician Active S tart: May 06, 2025 Satya Thakkar TECHNICAL SUPPORT SPECIALIST, TECHNICAL SUPPORT SPECIALIST-C Attending physician Active Start: May 06, 2025 Satya Thakkar TECHNICAL SUPPORT SPECIALIST, TECHNICAL SUPPORT SPECIALIST-C Referring Provider Active S tart: May 06, 2025 Team Status: Active Member Role/Relationship Status Dates Jorge Lopez MD Primary care physician Active S tart: May 06, 2025 Dr. Adrian Ty MD Attending physician Active Start: May 06, 2025 Dr. Adrian Ty MD Referring Provider Active S tart: May 06, 2025 Team Status: Inactive Member Role/Relationship Status Dates Jorge Lopez MD Primary care physician Active S tart: June 24, 2025 End: June 24, 2025 Jorge Lopez MD Attending physician Active Star t: June 24, 2025 End: June 24, 2025 Jorge Lopez MD Referring Provider Active Start : June 24, 2025 End: June 24, 2025 Team Status: Inactive Member Role/Relationship Status Dates Jorge Lopez MD Primary care physician Active S tart: July 24, 2025 End: July 24, 2025 Jorge Lopez MD Attending physician Active Star t: July 24, 2025 End: July 24, 2025 Jorge Lopez MD Referring Provider Active Start : July 24, 2025 End: July 24, 2025 Reason for Visit (unrecogniz ed section and content) Reason Comments vulvar biopsy Reason Comments Patient Question Vulvar pain Reason Comments Follow Up from clobetasol Reason Comments Orders Reason Comments Yearly Exam Goals (unrecognized section and content) Goals may be documented in a n alternate sectionGoals may be documented in an alternate sectionGoals may be documented in an alternate sectionGoals may be documented in an alternate sectionGoals may be documented in an alternate sectionGoals may be documented in an alternate sectionGoals may be documented in an alternate sectionGoals may be documented in an alternate section INFORMATION SOURCE (unrecogn ized section and content) DATE CREATED AUTHOR 05/21/2024 [facility] DATE CREATED AUTHOR AUTHOR'S ORGANIZ ATION 08/11/2025 [facility] FOR RECORDS PERTAINING TO PATIENTS WHO ARE [...] BE BASED ON THE PRIMARY CLINICAL RECORDS. [facility] [employer] [facility]. provides no warranty or guarantee of the accuracy or completeness of information in this document.
--- OUTSIDE RECORDS SUMMARY | 2025-08-26 19:32 | XMS RPT_ITS | CCD ---
Author Organization [facility] CliniSynd Care Team Providers Care Monotype Keyboard Operator Name Role Phone Maddy Beard Primary Care [...] Dr. Maddy Beard MD Referring Provider Bijan ASSISTANT PLANT MANAGER-CSatya Referring Provider Dr. Adrian Ty MD Attending Provider Karson BERTRAND, Dr. Campbell Referring Provider Jorge Lopez MD Attending Provider [phone] Jorge Lopez MD Referring Provider Roof ASSISTANT PLANT MANAGER-C, Satya Grajeda Attending Physician Jorge Lopez MD Primary Care Physician [phone] Karson BERTRAND, Dr. Campbell Attending Physician Jorge Lopez MD Attending Physician [phone] Edinson Henao Attending Unavailable Jolliff, Maddy S Primary Care Unavailable Karson, [place] Attending Unavailable Karson, Adrian Referring Unavailable Jessica, [...] Unavailable Jolliff, Maddy S Referring Unavailable Roof ASSISTANT PLANT MANAGER, Satya H Attending Unavailable Jessica, Chalon Primary Care Unavailable Karson, Adrian Attending Unavailable Karson, Adrian Referring Unavailable Jolliff, Maddy S Primary Care Unavailable Roof ASSISTANT PLANT MANAGER, Satya H Attending Unavailable Roof ASSISTANT PLANT MANAGER, Satya H Referring Unavailable Jessica, Chalon Primary Care Unavailable Jolliff, Maddy S Primary Care Unavailable Karson, Adrian Attending Unavailable Jolliff, Maddy S Referring Unavailable Jolliff, Maddy S Primary Care Unavailable Jolliff, Maddy S Attending Unavailable Jolliff, Maddy S Referring Unavailable Jolliff, Maddy S Primary Care Unavailable Karson, Adrian Attending Unavailable Karson, [place] Referring Unavailable Allergies Allergy Classification Reported Allergen(s) Allergy Type Date of Onset Reaction(s) Facility (9 sources) Sulfacetamide; Translations: [SULFACETAMIDE] Drug Allergy 12-20-19 12 GI Upset [facility] Work Phone: (8 sources) Sulfonamides (Antibiotic) Allergy to substance 11-08-19 20 Upset Stomach [facility] (5 sources) Spironolactone Drug Allergy 11-26-19 25 Pt. states tachycardia and palpitations [facility] (1 source) Spironolactone Drug Allergy 04-21-20 [facility] Repository (1 source) Sulfonamides (Antibiotic) Drug allergy (disorder) 04-21-20 [facility] Repository Medications Current Medications Medication Drug Class(es) Dates Sig (Normalized) Sig (Original) aspirin 81 mg delayed release oral tablet (16 sources) Platelet Aggregation Inhibitor, Nonsteroidal Anti-inflammatory Drug Start: 12-20-2011 take 1 tablet by mouth once daily Comment on above: Take 1 tablet by [facility] once daily. clobetasol propionate 0.0005 mg/mg topical [...] daily Start: 11-01-2019 take 1 capsule by [facility] twice daily AMITIZA 8 mcg capsule Take [...] EACH PO DAILY June 15, 2018 12:00am tm-CI-ZL-Fl-Ute-Cecstjn-Lute in (CENTRUM) 0.4-162-18 mg ORAL Tab (8 sources) Start: 12-20-2011 take 1 tablet by mouth once daily ss-IT-ND-Qw-Gan-Kxcvpgj-Lutein (CENTRUM) 0.4-162-18 mg ORAL Tab Take 1 [...] Take 20 mg by mouth. fluocinolone acetonide 0.69516 mg/mg topical ointment (3 sources) Corticosteroid Start: [...] without Conto n 07-24-2025 Abdomen/Pelvis without Cont [facility] Imaging Services [address] [place] [address] Abdomen/Pelvis without Cont MR#: [id number] Acct: [id number] Name: AMERICO LEES Rep #: [id number] : 1955 F 70 From: Maxwell dickey MD PCP: Dr. Jorge Lopez MD Status: REG CLI Study: Abdomen/Pelvis without Cont Date of Exam: 07/07 06/30 Exam# [id number] Ordering Dr: Jorge Lopez MD PROCEDURE: ABDOMEN/PELVIS [...] No acute abnormality is seen. Reading Location: [place] [address] CC: Dr. Jorge Lopez MD News Broadcaster: Signed Normal [facility] TSH DL <= 0.005 mIU/L QnOrde red By: Jorge Lopez on 06-24-2025 TSH Qn 1.780 uIU/mL 0.300-4.200 [facility] Thyroid Stim Hormone (TSH)on 06-24-2025 TSH 1.780 uIU/mL Normal 0.300-4.200 [facility] Comment on above: Order Comment: Order Date: 06/24/25Order Info: [id number] - TSH Performed By: #### L 501.7419 ####[facility] [id number] [place], [address] Coronary Angiography CTon Coronary Angiography CT [facility] Imaging Services [address] [place] [address] 05/06/25 1710 MR#: [id number] Acct: [id number] Name: AMERICO LEES Rep #: [id number] : 1955 70 From: Adrian Ty MD [...] MD; Dr. Adrian Ty MD Signed Normal [facility] Limited Chest CT Cardiac Onl yon 05-06-[address] Cardiac Only [facility] Imaging Services [address] [place] [address] Cardiac Only MR#: [id number] Acct: [id number] Name: AMERICO LEES Rep #: [id number] : 1955 F 70 From: [place] PCP: Dr. Jorge Lopez MD Status: REG REF Study: Limited Chest CT Cardiac Only Date of Exam: Exam# [id number] Ordering Dr: Satya Thakkar NP PROCEDURE: LIMITED CHEST CT CARDIAC ONLY 05/06/2025 REASON FOR EXAM: FAMILY HISTORY OF [place] TECHNIQUE: CT for coronary artery calcification. One [...] abdomen demonstrates no significant abnormality. Reading Location: [place] [address] CC: JOSELUIS Thakkar; Dr. Jorge Lopez MD News Broadcaster: Signed Normal [facility] Cardiology Visit Reporton Cardiology Visit Report [facility] [address] [place] [address] OFFICE VISIT Date of Service: 04/21/25 MR#: [id number] Acct: [id number] Name: AMERICO LEES Rep #: [id number] : 1955 Provider: JOSELUIS loving Age/Sex: 70/F Location: [facility] Status: Signed HPI HPI History of [...] Monitor Intake Visit Reasons: 5 M FU Installment Dealer Required: No Accompanied by: Self Is patient [...] effort; Negati (more content not included)... Normal [facility] Absolute lymphocyte countOrd ered By: Maddy Chirag on 02-18-2025 Lymphocytes Auto (Unsp spec) [#/Vol] 3.10 10*3/uL 0.83-4.51 [facility] Absolute neutrophil countOrd ered By: Maddy Beard on 02-18-2025 Neutrophils (Bld) [#/Vol] 3.7 10*3/uL 2.0-7.7 [facility] Automated lymphocyte count a s percentage of total leukocytesOrdered By: Maddy Beard on 02-18-2025 Lymphocytes/100 WBC Auto (Unsp spec) 39.8 % 19-41 [facility] Basophil percentageOrdered B y: Maddy Beard on 02-18-2025 Basophils/100 WBC (Bld) 0.6 % 0-1 [facility] CBC W/Diff, Automatedon 02-04 Absolute Lymph 3.10 X10 3/uL Normal 0.83-4.51 [facility] Comment on above: Performed By: #### L 101.9900, L100.0100 #### [facility] Laboratory [address] [place], [address] Absolute Neut 3.7 X10 3/uL Normal 2.0-7.7 [facility] Comment on above: Performed By: #### L 101.9900, L100.0100 #### [facility] [address] [place], [address] Basophils/100 WBC (Bld) 0.6 % Normal 0-1 [facility] Comment on above: Performed By: #### L 101.9900, L100.0100 #### [facility] [address] [place], [address] Eosinophils/100 WBC (Bld) 3.1 % Normal 0-5 [facility] Comment on above: Performed By: #### L 101.9900, L100.0100 #### [facility] [address] [place], [address] Erythrocyte distribution width (RBC) [Ratio] 12.3 % Normal 11.6-14.6 [facility] Comment on above: Performed By: #### L 101.9900, L100.0100 #### [facility] [address] [place], [address] Hematocrit (Bld) [Volume fraction] 40.2 % Normal 37-47 [facility] Comment on above: Performed By: #### L 101.9900, L100.0100 #### [facility] [address] [place], [address] Hemoglobin (Bld) [Mass/Vol] 13.5 g/dL Normal 12.0-15.0 [facility] Comment on above: Performed By: #### L 101.9900, L100.0100 #### [facility] [address] [place], [address] IG% 0.300 Normal 0.0-0.9 [facility] Comment on above: Result Comment: IG% - Immature Granulocytes (promyelocytes, myelocytes and metamyelocytes) > 1% indicates that a LEFT SHIFT is Present. Performed By: #### L 101.9900, L100.0100 #### [facility] [address] [place], [address] Lymphocytes/100 WBC (Bld) 39.8 % Normal 19-41 [facility] Comment on above: Performed By: #### L 101.9900, L100.0100 #### [facility] [address] [place], [address] MCH (RBC) [Entitic mass] 30.0 pg Normal 27.0-32.0 [facility] Comment on above: Performed By: #### L 101.9900, L100.0100 #### [facility] [address] [place], [address] MCHC (RBC) [Mass/Vol] 33.6 g/dL Normal 32-36 [facility] Comment on above: Performed By: #### L 101.9900, L100.0100 #### [facility] [address] [place], [address] MCV (RBC) [Entitic vol] 89.3 fL Normal 81-99 [facility] Comment on above: Performed By: #### L 101.9900, L100.0100 #### [facility] [address] [place], [address] Monocytes/100 WBC (Bld) 9.4 % Normal 0-10 [facility] Comment on above: Performed By: #### L 101.9900, L100.0100 #### [facility] [address] [place], [address] Neutrophils/100 WBC (Bld) 46.8 % Low 47-70 [facility] Comment on above: Performed By: #### L 101.9900, L100.0100 #### [facility] [address] [place], [address] Nucleated RBC (Bld) [#/Vol] 0 10*3/uL Normal 0-5 [facility] Comment on above: Performed By: #### L 101.9900, L100.0100 #### [facility] [address] [place], [address] Platelet mean volume (Bld) [Entitic vol] 9.7 fL Normal 6.2-12.0 [facility] Comment on above: Performed By: #### L 101.9900, L100.0100 #### [facility] [address] [place], [address] Platelets (Bld) [#/Vol] 264 10*3/uL Normal 150-450 [facility] Comment on above: Performed By: #### L 101.9900, L100.0100 #### [facility] [address] [place], [address] RBC (Bld) [#/Vol] 4.50 10*6/uL Normal 4.2-5.4 [facility] Comment on above: Performed By: #### L 101.9900, L100.0100 #### [facility] [address] [place], [address] RDW SD 40.5 fl Normal 35.1-43.9 [facility] Comment on above: Performed By: #### L 101.9900, L100.0100 #### [facility] [address] [place], [address] WBC (Bld) [#/Vol] 7.8 10*3/uL Normal 4.4-11.0 [facility] Comment on above: Performed By: #### L 101.9900, L100.0100 #### [facility] [address] [place], [address] Eosinophil percentageOrdered By: Maddy Beard on 02-18-2025 Eosinophils/100 WBC (Bld) 3.1 % 0-5 [facility] Erythrocyte Sed Rateon 02-18 SED RATE 10 mm/hr Normal 0-30 [facility] Comment on above: Performed By: #### L 101.9900, L100.0100 #### [facility] [address] [place], [address] Erythrocyte distribution wid th (RBC) [Ratio]Ordered By: Madyd Beard on 02-18-2025 Erythrocyte distribution width (RBC) [Entitic vol] 40.5 fL 35.1-43.9 [facility] Erythrocyte distribution wid th ratioOrdered By: Maddy Beard on 02-18-2025 Erythrocyte distribution width (RBC) [Ratio] 12.3 % 11.6-14.6 [facility] Erythrocyte distribution wid th standard deviationOrdered By: Maddy Beard on 02-18-2025 Erythrocyte distribution width (RBC) [Ratio] 40.5 fl 35.1-43.9 [facility] Erythrocyte sedimentation ra teOrdered By: Maddy Beard on 02-18-2025 ESR (Bld) [Velocity] 10 mm/h 0-30 [facility] Hematocrit Auto (Bld) [Volum e fraction]Ordered By: Maddy Beard on 02-18-2025 Hematocrit (Bld) [Volume fraction] 40.2 % 37-47 [facility] Hemoglobin measurementOrdere d By: Maddy Beard on 02-18-2025 Hemoglobin (Bld) [Mass/Vol] 13.5 g/dL 12.0-15.0 [facility] Immature granulocytes/100 WB C Auto (Bld)Ordered By: Maddy Beard 02-18-2025 Immature granulocytes/100 WBC (Bld) 0.300 % 0.0-0.9 [facility] Comment on above: IG% - Immature Granu locytes (promyelocytes, myelocytes and metamyelocytes) > 1% indicates that a LEFT SHIFT is Present. Lymphocytes Auto (Unsp spec) [#/Vol]Ordered By: Maddy Beard on 02-18-2025 Lymphocytes (Bld) [#/Vol] 3.10 10*3/uL 0.83-4.51 [facility] Lymphocytes/100 WBC Auto (Un sp spec)Ordered By: Maddy Beard on 02-18-2025 Lymphocytes/100 WBC (Bld) 39.8 % 19-41 [facility] MCV (mean corpuscular volume ) determinationOrdered By: Maddy Beard 02-18-2025 MCV (RBC) [Entitic vol] 89.3 fL 81-99 [facility] Mean corpuscular hemoglobin (MCH) determinationOrdered By: Maddy Beard on 02-18-2025 MCH (RBC) [Entitic mass] 30.0 pg 27.0-32.0 [facility] Mean corpuscular hemoglobin concentration (MCHC) determinationOrdered By: Maddy Beard on 02-18-2025 MCHC (RBC) [Mass/Vol] 33.6 g/dL 32-36 [facility] Mean platelet volume determi nationOrdered By: Maddy Beard on 02-18-2025 Platelet mean volume (Bld) [Entitic vol] 9.7 fL 6.2-12.0 [facility] Monocyte percentageOrdered B y: Maddy Beard on 02-18-2025 Monocytes/100 WBC (Bld) 9.4 % 0-10 [facility] Neutrophil percentageOrdered By: Maddy Beard on 02-18-2025 Neutrophils/100 WBC (Bld) 46.8 % Low 47-70 [facility] Nucleated red blood cell per centageOrdered By: Maddy Beard on 02-18-2025 Nucleated RBC/100 WBC (Bld) [Ratio] 0 % 0-5 [facility] Platelet countOrdered By: Edwina Beard on 02-18-2025 Platelets (Bld) [#/Vol] 264 10*3/uL 150-450 [facility] RBC Auto (Bld) [#/Vol]Ordere d By: Maddy Beard on 02-18-2025 RBC (Bld) [#/Vol] 4.50 10*6/uL 4.2-5.4 [facility] White blood cell (WBC) count Ordered By: Maddy Beard on 02-18-2025 WBC (Bld) [#/Vol] 7.8 10*3/uL 4.4-11.0 [facility] TSH DL <= 0.005 mIU/L QnOrde red By: Maddy Beard on 01-03-2025 Thyroid Stimulating Hormone (TSH) 1.040 uIU/mL 0.300-4.200 [facility] TSH Qn 1.040 uIU/mL 0.300-4.200 [facility] Thyroid Stim Hormone (TSH)on 01-03-2025 TSH 1.040 uIU/mL Normal 0.300-4.200 [facility] Comment on above: Order Comment: Order Date: 01/03/25Order Info: [id number] - TSH Performed By: #### L 501.8990 ####[facility] [id number] [place], [address] Echo Completeon 12-02-2024 Echo Complete [facility] Cardiovascular Services [address] [place] [address] Echo Complete 12/02/24 1301 MR#: [id number] Acct: [id number] Name: AMERICO LEES Rep #: [id number] : 1955 69 From: Adrian Ty MD Attending Dr: Dr. Adrian Ty MD Status: MAMI JOSUE Ordering Dr: Adrian Ty MD Date: 12/02/24 Location: [facility] Sex: F C Admitted: Reason For Study: [...] max guicho: 71.6 cm/sec Lat Peak E' Guihco: 10.9 cm/sec Med Peak E' Guicho: 7.9 [...] Dictated: 12/02/24 1301 Date Transcribed: 12/02/24 151 News Broadcaster: Signed [place] [address] Lead EKGon 11-24-2024 12 Lead EKG [facility] Cardiovascular Services [address] [place] [address] 12 Lead EKG 11/24/24 1935 MR#: [id number] Acct: [id number] Name: AMERICO LEES Rep #: [id number] : 1955 69 From: Noris Pastor MD [...] Abnormal ECG Confirmed by MAYRA BERTRAND, CARO ([id number]), editor & co founder LUIS CARLOS HOLT ([id number]) on 11/25/2024 10:59:31 AM Referred By: [place] Confirmed By: CARO PASTOR MD 11/25/24 1059 Date Noris Pastor MD CC: Dr. Maddy Beard MD; Dr. Edinson Henao DO Signed Normal [facility] Absolute neutrophil countOrd ered By: Edinson Henao on 11-24-2024 Neutrophils (Bld) [#/Vol] 3.9 10*3/uL 2.0-7.7 [facility] Basic Metabolic Profile (BMP )on 11-24-2024 BUN/CRE 20.5 RATIO High 08-25 [facility] Comment on above: Performed By: #### L 501.9520, L100.0100, L501.5200, L500.2500 #### [facility] Laboratory [address] [place], [address] CA,Total 8.8 mg/dL Normal 8.5-10.1 [facility] Comment on above: Performed By: #### L 501.9520, L100.0100, L501.5200, L500.2500 #### [facility] [address] [place], [address] Chloride [Moles/Vol] 108 mmol/L High 98-107 [facility] Comment on above: Performed By: #### L 501.9520, L100.0100, L501.5200, L500.2500 #### [facility] [address] [place], [address] CO2 [Moles/Vol] 25.0 mmol/L Normal 21.0-32.0 [facility] Comment on above: Performed By: #### L 501.9520, L100.0100, L501.5200, L500.2500 #### [facility] [address] [place], [address] Creatinine [Mass/Vol] 0.88 mg/dL Normal 0.55-1.02 [facility] Comment on above: Result Comment: The validity of the calculated GFR GFRAA in patients over 70 years has not been determined. Clinical correlation is essential. Performed By: #### L 501.9520, L100.0100, L501.5200, L500.2500 #### [facility] [address] [place], [address] ECRCL 56.68 ml/min Normal [facility] Comment on above: Performed By: #### L 501.9520, L100.0100, L501.5200, L500.2500 #### [facility] [address] [place], [address] EST GFR - AA 82 mL/min Normal >60 [facility] Comment on above: Result Comment: Afri can Belarusian GFR Calc Performed By: #### L 501.9520, L100.0100, L501.5200, L500.2500 #### [facility] [address] [place], [address] GAP 7 Normal 5-15 [facility] Comment on above: Performed By: #### L 501.9520, L100.0100, L501.5200, L500.2500 #### [facility] [address] [place], [address] GFR/1.73 sq M.predicted among non-blacks MDRD (S/P/Bld) [Vol rate/Area] 68 mL/min/{1.73_m2} Normal >60 [facility] Comment on above: Result Comment: Non- GFR Calc Performed By: #### L 501.9520, L100.0100, L501.5200, L500.2500 #### [facility] [address] [place], [address] Glucose [Mass/Vol] 210 mg/dL High 74-106 [facility] Comment on above: Result Comment: Gluc ose result greater than or equal to 200 mg/dL suggests DIABETES MELLITUS per A.D.A. criteria. Performed By: #### L 501.9520, L100.0100, L501.5200, L500.2500 #### [facility] [address] [place], [address] Potassium [Moles/Vol] 3.7 mmol/L Normal 3.5-5.1 [facility] Comment on above: Performed By: #### L 501.9520, L100.0100, L501.5200, L500.2500 #### [facility] [address] [place], [address] Sodium [Moles/Vol] 140 mmol/L Normal 136-145 [facility] Comment on above: Performed By: #### L 501.9520, L100.0100, L501.5200, L500.2500 #### [facility] [address] [place], [address] Urea nitrogen [Mass/Vol] 18 mg/dL Normal 7-18 [facility] Comment on above: Performed By: #### L 501.9520, L100.0100, L501.5200, L500.2500 #### [facility] [address] [place], [address] Basophil percentageOrdered B y: Edinson Sanford on 11-24-2024 Basophils/100 WBC (Bld) 0.6 % 0-1 [facility] Blood urea nitrogen (BUN)/cr eatinine ratioOrdered By: Edinson Henao on 11-24-2024 Urea nitrogen/Creatinine [Mass ratio] 20.5 mg/mg High 10-20 [facility] CBC W/Diff, Automatedon 11-06 Absolute Lymph 2.94 X10 3/uL Normal 0.83-4.51 [facility] Comment on above: Performed By: #### L 501.9520, L100.0100, L501.5200, L500.2500 #### [facility] [address] [place], [address] Absolute Neut 3.9 X10 3/uL Normal 2.0-7.7 [facility] Comment on above: Performed By: #### L 501.9520, L100.0100, L501.5200, L500.2500 #### [facility] [address] [place], [address] Basophils/100 WBC (Bld) 0.6 % Normal 0-1 [facility] Comment on above: Performed By: #### L 501.9520, L100.0100, L501.5200, L500.2500 #### [facility] [address] [place], [address] Eosinophils/100 WBC (Bld) 2.6 % Normal 0-5 [facility] Comment on above: Performed By: #### L 501.9520, L100.0100, L501.5200, L500.2500 #### [facility] [address] [place], [address] Erythrocyte distribution width (RBC) [Ratio] 12.5 % Normal 11.6-14.6 [facility] Comment on above: Performed By: #### L 501.9520, L100.0100, L501.5200, L500.2500 #### [facility] [address] [place], [address] Hematocrit (Bld) [Volume fraction] 39.1 % Normal 37-47 [facility] Comment on above: Performed By: #### L 501.9520, L100.0100, L501.5200, L500.2500 #### [facility] [address] [place], [address] Hemoglobin (Bld) [Mass/Vol] 13.4 g/dL Normal 12.0-15.0 [facility] Comment on above: Performed By: #### L 501.9520, L100.0100, L501.5200, L500.2500 #### [facility] [address] [place], [address] IG% 0.300 Normal 0.0-0.9 [facility] Comment on above: Result Comment: IG% - Immature Granulocytes (promyelocytes, myelocytes and metamyelocytes) > 1% indicates that a LEFT SHIFT is Present. Performed By: #### L 501.9520, L100.0100, L501.5200, L500.2500 #### [facility] [address] [place], [address] Lymphocytes/100 WBC (Bld) 36.8 % Normal 19-41 [facility] Comment on above: Performed By: #### L 501.9520, L100.0100, L501.5200, L500.2500 #### [facility] [address] [place], [address] MCH (RBC) [Entitic mass] 30.6 pg Normal 27.0-32.0 [facility] Comment on above: Performed By: #### L 501.9520, L100.0100, L501.5200, L500.2500 #### [facility] [address] [place], [address] MCHC (RBC) [Mass/Vol] 34.3 g/dL Normal 32-36 [facility] Comment on above: Performed By: #### L 501.9520, L100.0100, L501.5200, L500.2500 #### [facility] [address] [place], [address] MCV (RBC) [Entitic vol] 89.3 fL Normal 81-99 [facility] Comment on above: Performed By: #### L 501.9520, L100.0100, L501.5200, L500.2500 #### [facility] [address] [place], [address] Monocytes/100 WBC (Bld) 11.3 % High 0-10 [facility] Comment on above: Performed By: #### L 501.9520, L100.0100, L501.5200, L500.2500 #### [facility] [address] [place], [address] Neutrophils/100 WBC (Bld) 48.4 % Normal 47-70 [facility] Comment on above: Performed By: #### L 501.9520, L100.0100, L501.5200, L500.2500 #### [facility] [address] [place], [address] Nucleated RBC (Bld) [#/Vol] 0 10*3/uL Normal 0-5 [facility] Comment on above: Performed By: #### L 501.9520, L100.0100, L501.5200, L500.2500 #### [facility] [address] [place], [address] Platelet mean volume (Bld) [Entitic vol] 8.9 fL Normal 6.2-12.0 [facility] Comment on above: Performed By: #### L 501.9520, L100.0100, L501.5200, L500.2500 #### [facility] [address] [place], [address] Platelets (Bld) [#/Vol] 274 10*3/uL Normal 150-450 [facility] Comment on above: Performed By: #### L 501.9520, L100.0100, L501.5200, L500.2500 #### [facility] [address] [place], [address] RBC (Bld) [#/Vol] 4.38 10*6/uL Normal 4.2-5.4 [facility] Comment on above: Performed By: #### L 501.9520, L100.0100, L501.5200, L500.2500 #### [facility] [address] [place], [address] RDW SD 41.0 fl Normal 35.1-43.9 [facility] Comment on above: Performed By: #### L 501.9520, L100.0100, L501.5200, L500.2500 #### [facility] [address] [place], [address] WBC (Bld) [#/Vol] 8.0 10*3/uL Normal 4.4-11.0 [facility] Comment on above: Performed By: #### L 501.9520, L100.0100, L501.5200, L500.2500 #### [facility] [address] [place], [address] Carbon dioxide measurementOr dered By: Edinson Henao on 11-24-2024 CO2 [Moles/Vol] 25.0 mmol/L 21.0-32.0 [facility] Chest 1 View (Portable)on Chest 1 View (Portable) [facility] Imaging Services [address] [place] [address] Chest 1 View (Portable) MR#: [id number] Acct: [id number] Name: AMERICO LEES Rep #: [id number] : 1955 F 69 From: Abelardo Mai MD PCP: Dr. Maddy Beard MD Status: REG ER Study: Chest 1 View (Portable) Date of Exam: 11/24/24 Exam# [id number] Ordering Dr: Edinson Henao DO [id number] EXAM: XR CHEST, 1 VIEW CLINICAL INDICATION: [...] Maddy Beard MD; Dr. Edinson Henao DO News Broadcaster: Signed Normal [facility] Chloride measurementOrdered By: Edinson Henao on 11-24-2024 Chloride [Moles/Vol] 108 mmol/L High 98-107 [facility] Emergency Department Summary on 11-24-2024 Emergency Department Summary [facility] Medical Records Department [address] [place] [address] Emergency Department Summary 11/24/24 MR#: [id number] Acct: [id number] Name: AMERICO LEES Rep #: [id number] : 1955 69 From: Edinson Henao DO [...] states that tonight she went home from [facility] ate dinner and had a sudden onset of chest palpitations. She stated that he felt like her heart was racing and she had discomfort in her chest. She states it is improved now. EMS EKG showed a sinus tachycardia. [facility] Medical History Dizziness Fatigue Gastroenteritis Vertigo Elevated [...] murmurs GI (more content not included)... Normal [facility] Eosinophil percentageOrdered By: Edinson Henao on 11-24-2024 Eosinophils/100 WBC (Bld) 2.6 % 0-5 [facility] Erythrocyte distribution wid th ratioOrdered By: Edinson Henao on 11-24-2024 Erythrocyte distribution width (RBC) [Ratio] 12.5 % 11.6-14.6 [facility] Erythrocyte distribution wid th standard deviationOrdered By: Edinson Henao on 11-24-2024 Erythrocyte distribution width (RBC) [Entitic vol] 41.0 fL 35.1-43.9 [facility] Estimated glomerular filtrat ion rate (GFR) AmericanOrdered By: Edinson Henao on 11-24-2024 Estimated GFR (MDRD) Amer 82 mL/min >60 [facility] Comment on above: GFR Calc Estimation of creatinine catherine aranceOrdered By: Edinson Henao on 11-24-2024 Estimated Creatinine Clearance Calc 56.68 ml/min [facility] Glomerular filtration rate ( GFR) estimationOrdered By: Edinson Henao on 11-24-2024 Estimated GFR (MDRD) Non-Af Amer 68 mL/min >60 [facility] Comment on above: Non- GFR Calc Glucose measurementOrdered B y: Edinson Henao on 11-24-2024 Glucose [Mass/Vol] 210 mg/dL High 74-106 [facility] Comment on above: Glucose result great er than or equal to 200 mg/dLsuggests DIABETES MELLITUS per A.D.A. criteria. Hematocrit Auto (Bld) [Volum e fraction]Ordered By: Edinson Henao on 11-24-2024 Hematocrit (Bld) [Volume fraction] 39.1 % 37-47 [facility] Hemoglobin measurementOrdere d By: Edinson Henao on 11-24-2024 Hemoglobin (Bld) [Mass/Vol] 13.4 g/dL 12.0-15.0 [facility] Immature granulocytes/100 WB C Auto (Bld)Ordered By: Edinson Henao on 11-24-2024 Immature granulocytes/100 WBC (Bld) 0.300 % 0.0-0.9 [facility] Comment on above: IG% - Immature Granu locytes (promyelocytes, myelocytes and metamyelocytes) > 1% indicates that a LEFT SHIFT is Present. Lymphocytes Auto (Unsp spec) [#/Vol]Ordered By: Edinson Henao on 11-24-2024 Lymphocytes (Bld) [#/Vol] 2.94 10*3/uL 0.83-4.51 [facility] Lymphocytes/100 WBC Auto (Un sp spec)Ordered By: Edinson Henao on 11-24-2024 Lymphocytes/100 WBC (Bld) 36.8 % 19-41 [facility] MCV (mean corpuscular volume ) determinationOrdered By: Edinson Henao on 11-24-2024 MCV (RBC) [Entitic vol] 89.3 fL 81-99 [facility] Magnesiumon 11-24-2024 Magnesium [Mass/Vol] 2.2 mg/dL Normal 1.6-2.6 [facility] Comment on above: Performed By: #### L 501.9520, L100.0100, L501.5200, L500.2500 #### [facility] [place], [address] Magnesium measurementOrdered By: Edinson Henao on 11-24-2024 Magnesium [Mass/Vol] 2.2 mg/dL 1.6-2.6 [facility] Mean corpuscular hemoglobin (MCH) determinationOrdered By: Edinson Henao on 11-24-2024 MCH (RBC) [Entitic mass] 30.6 pg 27.0-32.0 [facility] Mean corpuscular hemoglobin concentration (MCHC) determinationOrdered By: Edinson Henao on 11-24-2024 MCHC (RBC) [Mass/Vol] 34.3 g/dL 32-36 [facility] Mean platelet volume determi nationOrdered By: Edinson Henao on 11-24-2024 Platelet mean volume (Bld) [Entitic vol] 8.9 fL 6.2-12.0 [facility] Monocyte percentageOrdered B y: Edinson Henao on 11-24-2024 Monocytes/100 WBC (Bld) 11.3 % High 0-10 [facility] Neutrophil percentageOrdered By: Edinson Henao on 11-24-2024 Neutrophils/100 WBC (Bld) 48.4 % 47-70 [facility] Nucleated red blood cell per centageOrdered By: Edinson Henao on 11-24-2024 Nucleated RBC/100 WBC (Bld) [Ratio] 0 % 0-5 [facility] Platelet countOrdered By: Jorden Henao on 11-24-2024 Platelets (Bld) [#/Vol] 274 10*3/uL 150-450 [facility] Potassium measurementOrdered By: Edinson Henao on 11-24-2024 Potassium [Moles/Vol] 3.7 mmol/L 3.5-5.1 [facility] RBC Auto (Bld) [#/Vol]Ordere d By: Edinson Henao on 11-24-2024 RBC (Bld) [#/Vol] 4.38 10*6/uL 4.2-5.4 [facility] Serum anion gap measurementO rdered By: Edinson Henao on 11-24-2024 Anion gap [Moles/Vol] 7 mmol/L 5-15 [facility] Serum or plasma calcium christophe urement (mass/volume)Ordered By: Edinson Henao on 11-24-2024 Calcium [Mass/Vol] 8.8 mg/dL 8.5-10.1 [facility] Serum or plasma creatinine m easurement (mass/volume)Ordered By: Edinson Henao on 11-24-2024 Creatinine [Mass/Vol] 0.88 mg/dL 0.55-1.02 [facility] Comment on above: The validity of the calculated GFR & GFRAA in patients over 70 years has not been determined. Clinical correlation is essential. Serum or plasma urea nitroge n measurement (mass/volume)Ordered By: Edinson Henao on 11-24-2024 Urea nitrogen [Mass/Vol] 18 mg/dL 7-18 [facility] Sodium levelOrdered By: Jase Henao on 11-24-2024 Sodium [Moles/Vol] 140 mmol/L 136-145 [facility] TSH QnOrdered By: Edinson srinivasan on 11-24-2024 Thyroid Stimulating Hormone (TSH) 7.590 uIU/mL High 0.358-3.740 [facility] Thyroid Stim Hormone (TSH)on 11-24-2024 TSH 7.590 uIU/mL High 0.358-3.740 [facility] Comment on above: Performed By: #### L 501.9520, L100.0100, L501.5200, L500.2500 #### [facility] [address] [place], [address] White blood cell (WBC) count Ordered By: Edinson Henao on 11-24-2024 WBC (Bld) [#/Vol] 8.0 10*3/uL 4.4-11.0 [facility] 12 Lead EKG performed by [facility] on 11-13-2024 12 Lead EKG performed by [facility] [address] [place] [address] 12 Lead EKG performed by [facility] 11/13/24 1258 MR#: [id number] Acct: [id number] Name: AMERICO LEES Rep #: [id number] : 1955 69 From: Adrian Ty MD Attending Dr: Dr. Adrian Ty MD Status: DEP A MB Ordering Dr: Adrian Ty MD Date: 11/13/24 Location: [facility] Sex: F C Admitted: [facility]/12 Lead EKG performed by [facility] ECG Report Interpretation ----Sinus Rhythm -Incomplete right bundle branch block. ABNORMAL Electronically signed on 11/13/2024 at 14:47 by Adrian Tywood Software Version [id number] 11/13/24 1448 Date Adrian Ty MD CC: Dr. Maddy Beard MD Date Dictated: 11/13/24 1258 Date Transcribed: 11/13/241257 News Broadcaster: [place] Signed Normal [facility] Cardiology Visit Reporton Cardiology Visit Report [facility] [address] [place] [address] OFFICE VISIT Date of Service: 11/13/24 MR#: [id number] Acct: [id number] Name: AMERICO LEES Rep #: [id number] : 1955 Provider: Dr. 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 Normal [facility] L/S Spine w Bend Min 6 Vwon 10-01-2024 L/S Spine w Bend Min 6 Vw [facility] Imaging Services [address] [place] [address] L/S Spine w Bend Min 6 Vw MR#: [id number] Acct: [id number] Name: AMERICO LEES Rep #: [id number] : 1955 F 69 From: Paul cuevas DO PCP: Dr. Maddy Beard MD Status: REG CLI Study: L/S Spine w Bend Min 6 Vw Date of Exam: Exam# [id number] Ordering Dr: Maddy Beard [place] [id number] EXAM: XR LUMBOSACRAL SPINE COMPLETE WITH FLEXION/EXTENSION, [...] EST , CC: Dr. Maddy Beard MD News Broadcaster: Signed [facility] ID: [id number] Author: COORDINATOR, MAMMOGRAPHY, ? Service: ? Author Type: Physician Type: Letter Filed: 05/08/2024 13:45 Note Text: May 10, 2024 PID: [id number] Americo Lees [address] [place] [id number] Dear Ms. Lees, We are pleased to [...] report will be kept on file at [facility] as part of your permanent medical record and are available for your continuing care. Thank you for allowing us to help in meeting your health care needs. Sincerely, Dr. Smith Interpreting Radiologist 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 History Comments: Sexual Activity: Yes; No partner [...] external genitalia normal, normal Bartholin's glands, urethra, White Bird's glands, no vulvar lesions, no cervical lesions, [...] Guido Adan MD Referring Provider: GUIDO ADAN [[id number]] Allergies As of Date: 05/08/2024 Noted Allergy Reaction SULFACETAMIDE 12/20/2011 8 - GI Upset Date Reviewed: 05/08/2024 Reviewed by: Guido Adan MD - Fully Assessed Reason for Visit: Yearly Exam [187] Primary Visit Diagnosis:Encounter for gynecological examination (general) (routine) without abnormal findings [Z01.419] Other Visit Diagnosis:Encounter for screening mammogram for breast cancer [Z12.31] Order(s):[facility] SCREENING W JESSICA [[id number]] Order #: [id number] FUTURE clobetasol (TEMOVATE) 0.05 % ointmentApply 1 [...] 25 mg by mouth twice daily. - vh-GH-GZ-Be-Tyv-Sycbcp n-Lutein (CENTRUM) 0.4-162-18 mg ORAL Tab Take 1 tablet by mouth once daily. - aspirin, enteric coated (ADULT LOW DOSE ASPIRIN) 81 mg ORAL EC tablet Take 1 tablet by mouth once daily. - zolpidem (AMBIEN) 5 mg ORAL tab (more content not included)... Normal [facility] SCREENINGon 05-08-2024 [facility] SCREENING * * *Final Report* * * DATE OF EXAM: May 08 2024 1:24PM Chet 0581 - [facility] SCREENING / PROCEDURE REASON: Encounter for screening mammogram for malignant neoplasm of breast * * * * Physician Interpretation * * * * RESULT: #[id number] - [facility] SCREENING BILATERAL DIGITAL SCREENING MAMMOGRAM [...] mammogram, 10/10/2018 mammogram, and 03/03/2014 mammogram - [facility]. Current study contains 6 films. There are [...] staff physician. karthik Fairchild M.D., D.O./kesha:05/08/2024 13:45:48 Shipping Room Helper(s): RT Rosaline(R)(M), [facility] letter sent: Normal over 40 Mammogram BI-RADS: [...] Health, Family Medicine, and Medical/Surgical Oncology, the [facility] has carefully reviewed the data and reached [...] their providers when to stop screening mammograms. News Broadcaster: Kesha Transcribe Date/Time: May 08 2024 1:12P Dictated by: MARISA WALTON DO This examination was interpreted and the report reviewed and electronically signed by: VANI SMITH MD on May 08 2024 1:45PM EST [id number] Normal [facility] Basophil percentageOrdered B y: Maddy Beard on 01-01-2024 Chloride [Moles/Vol] 98 mmol/L 98-107 [facility] Cholesterol [Mass/Vol] 177 mg/dL <200 [facility] Comment on above: <200 mg/dL Desirable 200-240 mg/dL Borderline >240 mg/dL High Risk Glucose [Mass/Vol] 82 mg/dL 74-106 [facility] Potassium [Moles/Vol] 3.9 mmol/L 3.5-5.1 [facility] Sodium [Moles/Vol] 134 mmol/L 136-145 [facility] Triglyceride [Mass/Vol] 289 mg/dL <199 [facility] Comment on above: The drugs N-Acetylcy steine and Metamizole may falsely depress this assay.Serum Triglycerides Reference Interval Normal <150 mg/dL Borderline high 150 - 199 mg/dL High 200 - 499 mg/dL Very High > or = 500 mg/dL Laboratory - Chemistry and C hemistry - challengeOrdered By: Maddy Beard on 01-01-2024 ALT [Catalytic activity/Vol] 38 U/L 13-56 [facility] Cholesterol in HDL [Mass/Vol] 40 mg/dL >40 [facility] Comment on above: The drugs N-Acetylcy steine and Metamizole may falsely depress this assay. Reference Range HDL <40 mg/dL Low HDL Cholesterol HDL >or= 60 mg/dL High HDL Cholesterol Cholesterol in LDL [Mass/Vol] 79 mg/dL 0-130 [facility] CO2 [Moles/Vol] 30.0 mmol/L 21.0-32.0 [facility] Urea nitrogen/Creatinine [Mass ratio] 21.7 mg/mg 10-20 [facility] No Panel InformationOrdered By: Maddy Beard on 01-01-2024 Estimated GFR (MDRD) Amer 94 mL/min >60 [facility] Comment on above: GFR Calc Estimated GFR (MDRD) Non-Af Amer 77 mL/min >60 [facility] Comment on above: Non- GFR Calc Urine Microalbumin/Creatinine Ratio TNP [facility] Comment on above: Test not performed VLDL Cholesterol 58 mg/dL 5-40 [facility] Serum or plasma calcium christophe urement (mass/volume)Ordered By: Maddy Beard on 01-01-2024 Calcium [Mass/Vol] 9.0 mg/dL 8.5-10.1 [facility] Serum or plasma creatinine m easurement (mass/volume)Ordered By: Maddy Beard on 01-01-2024 Creatinine [Mass/Vol] 0.78 mg/dL 0.55-1.02 [facility] Comment on above: The validity of the calculated GFR & GFRAA in patients over 70 years has not been determined. Clinical correlation is essential. Serum or plasma urea nitroge n measurement (mass/volume)Ordered By: Maddy Beard on 01-01-2024 Urea nitrogen [Mass/Vol] 17 mg/dL 7-18 [facility] Thin prep Papanicolaou smear with manual screeningOrdered By: Maddy Beard on 01-01-2024 Thin prep Papanicolaou smear with manual screening 23 U/L 15-37 [facility] Thin prep Papanicolaou smear with manual screening 6 5-15 [facility] Thin prep Papanicolaou smear with manual screening < 5.0 mg/L NO RANGE EST. [facility] Urine creatinine measurement (mass/volume)Ordered By: Maddy Beard on 01-01-2024 Creatinine (U) [Mass/Vol] 26.10 mg/dL NO RANGE EST. [facility] CNPNon 12-29-2023 CNPN Telephone (OBGYWM) AMERICO LEES ([id number]) 1955 F Date Time Provider Department 12/29/23 [...] mammogram for malignant neoplasm of breast [Z12.31] Order(s):[facility] SCREENING [[id number]] Order #: [id number] FUTURE Prescriptions as of 12/30/2023 - clobetasol [...] 25 mg by mouth twice daily. - kd-GX-IO-Mj-Cmo-Syzkuf n-Lutein (CENTRUM) 0.4-162-18 mg ORAL Tab Take [...] Status:Closed by GUIDO ADAN on 12/30/23 Normal [facility] Basophil percentageOrdered B y: Dr. Beard on 01-09-2023 Chloride [Moles/Vol] 101 mmol/L 98-107 [facility] Cholesterol [Mass/Vol] 176 mg/dL <200 [facility] Comment on above: <200 mg/dL Desirable 200-240 mg/dL Borderline >240 mg/dL High Risk Glucose [Mass/Vol] 92 mg/dL 74-106 [facility] Potassium [Moles/Vol] 4.0 mmol/L 3.5-5.1 [facility] Sodium [Moles/Vol] 137 mmol/L 136-145 [facility] Triglyceride [Mass/Vol] 210 mg/dL <199 [facility] Comment on above: The drugs N-Acetylcy steine and Metamizole may falsely depress this assay.Serum Triglycerides Reference Interval Normal <150 mg/dL Borderline high 150 - 199 mg/dL High 200 - 499 mg/dL Very High > or = 500 mg/dL Laboratory - Chemistry and C hemistry - challengeOrdered By: Dr. Beard on 01-09-2023 ALT [Catalytic activity/Vol] 38 U/L 13-56 [facility] CO2 [Moles/Vol] 30.0 mmol/L 21.0-32.0 [facility] Urea nitrogen/Creatinine [Mass ratio] 18.4 mg/mg 10-20 [facility] No Panel InformationOrdered By: Dr. Beard on 01-09-2023 Urine Microalbumin/Creatinine Ratio 5.5 mg/g CRE <30 [facility] Estimated GFR (MDRD) Amer 83 mL/min >60 [facility] Comment on above: GFR Calc Estimated GFR (MDRD) Non-Af Amer 69 mL/min >60 [facility] Comment on above: Non- GFR Calc Serum or plasma calcium christophe urement (mass/volume)Ordered By: Dr. Beard on 01-09-2023 Calcium [Mass/Vol] 9.3 mg/dL 8.5-10.1 [facility] Serum or plasma cholesterol in HDL measurement (mass/volume)Ordered By: Dr. Beard on 01-09-2023 Cholesterol in HDL [Mass/Vol] 44 mg/dL >40 [facility] Comment on above: The drugs N-Acetylcy steine and Metamizole may falsely depress this assay. Reference Range HDL <40 mg/dL Low HDL Cholesterol HDL >or= 60 mg/dL High HDL Cholesterol Serum or plasma cholesterol in VLDL measurement (mass/volume)Ordered By: Dr. Beard on 01-09-2023 Cholesterol in VLDL [Mass/Vol] 42 mg/dL 5-40 [facility] Serum or plasma creatinine m easurement (mass/volume)Ordered By: Dr. Beard on 01-09-2023 Creatinine [Mass/Vol] 0.87 mg/dL 0.55-1.02 [facility] Comment on above: The validity of the calculated GFR & GFRAA in patients over 70 years has not been determined. Clinical correlation is essential. Serum or plasma low density lipoprotein (LDL) cholesterol measurement (mass/volume)Ordered By: Dr. Beard on 01-09-2023 Cholesterol in LDL [Mass/Vol] 90 mg/dL 0-130 [facility] Serum or plasma urea nitroge n measurement (mass/volume)Ordered By: Dr. Beard on 01-09-2023 Urea nitrogen [Mass/Vol] 16 mg/dL 7-18 [facility] Thin prep Papanicolaou smear with manual screeningOrdered By: Dr. Beard on 01-09-2023 Thin prep Papanicolaou smear with manual screening 8.2 mg/L NO RANGE EST. [facility] Thin prep Papanicolaou smear with manual screening 22 U/L 15-37 [facility] Thin prep Papanicolaou smear with manual screening 6 5-15 [facility] Urine creatinine measurement (mass/volume)Ordered By: Dr. Beard on 01-09-2023 Creatinine (U) [Mass/Vol] 151.00 mg/dL NO RANGE EST. [facility] Vital Signs Date Time Vital Sign Value Performing Clinician Faci lity 04-21-2025 09:19-0400 Body height 162.[address] Maddy Beard MD Work Phone: [facility] 04-21-2025 09:19-0400 Diastolic blood pressure 81 mm[Hg] Dr. Maddy Beard MD Work Phone: [facility] 04-21-2025 09:19-0400 Heart rate 77 /min Dr. Maddy Beard MD Work Phone: [facility] 04-21-2025 09:19-0400 Respiratory rate 16 /min Dr. Maddy Beard MD Work Phone: [facility] 04-21-2025 09:19-0400 Systolic blood pressure 143 mm[Hg] Dr. Maddy Beard MD Work Phone: [facility] 11-24-2024 21:27-0500 Body temperature 97.9 [degF] Dr. Maddy Beard MD Work Phone: [facility] 11-24-2024 21:27-0500 Diastolic blood pressure 92 mm[Hg] Dr. Maddy Beard MD Work Phone: [facility] 11-24-2024 21:27-0500 Heart rate 78 /min Dr. Maddy Beard MD Work Phone: [facility] 11-24-2024 21:27-0500 Respiratory rate 18 /min Dr. Maddy Beard MD Work Phone: [facility] 11-24-2024 21:27-0500 SaO2% (BldA) [Mass fraction] 99 % Dr. Maddy Beard MD Work Phone: [facility] 11-24-2024 21:27-0500 Systolic blood pressure 150 mm[Hg] Dr. Maddy Beard MD Work Phone: [facility] 11-24-2024 19:27-0500 Body height 162.[address] Maddy Beard MD Work Phone: [phone] [place] [address] 11-24-2024 19:27-0500 Body mass index (BMI) [Ratio] 26 kg/m2 Dr. Maddy Beard MD Work Phone: [phone] [place] [address] 11-24-2024 19:27-0500 Body weight 68.[address] Maddy Beard MD Work Phone: [phone] [place] [address] 11-13-2024 12:58-0500 Body mass index (BMI) [Ratio] 24.5 kg/m2 Dr. Maddy Beard MD Work Phone: [facility] 11-13-2024 12:58-0500 Body weight 64.[address] Maddy Beard MD Work Phone: [facility] 11-13-2024 12:58-0500 Diastolic blood pressure 86 mm[Hg] Dr. Maddy Beard MD Work Phone: [facility] 11-13-2024 12:58-0500 Heart rate 84 /min Dr. Maddy Beard MD Work Phone: [facility] 11-13-2024 12:58-0500 Respiratory rate 16 /min Dr. Maddy Beard MD Work Phone: [facility] 11-13-2024 12:58-0500 Systolic blood pressure 159 mm[Hg] Dr. Maddy Beard MD Work Phone: [facility] 05-08-2024 13:36-0400 Body height 160.7 cm Guido Adan MD Work Phone: [facility] 05-08-2024 13:36-0400 Body mass index (BMI) [Ratio] 25.31 kg/m2 Guido Adan MD Work Phone: [facility] [facility] 05-08-2024 13:36-0400 Body weight 65.32 kg Guido Adan MD Work Phone: [facility] 05-08-2024 13:36-0400 Diastolic blood pressure 78 mm[Hg] Guido Adan MD Work Phone: [facility] 05-08-2024 13:36-0400 Systolic blood pressure 122 mm[Hg] Guido Adan MD Work Phone: [facility] 05-16-2022 09:18-0400 Body weight 66.95 kg Guido Adan MD Work Phone: [facility] 05-16-2022 09:18-0400 Diastolic blood pressure 68 mm[Hg] Guido Adan MD Work Phone: [facility] 05-16-2022 09:18-0400 Systolic blood pressure 110 mm[Hg] uGido Adan MD Work Phone: [facility] 03-09-2022 11:47-0400 Body weight 67.59 kg Guido Adan MD Work Phone: [facility] 03-09-2022 11:47-0400 Diastolic blood pressure 84 mm[Hg] Guido Adan MD Work Phone: [facility] 03-09-2022 11:47-0400 Systolic blood pressure 170 mm[Hg] Guido Adan MD Work Phone: [facility] 02-23-2022 15:52-0400 Body height 161.9 cm Guido Adan MD Work Phone: [facility] 02-23-2022 15:52-0400 Body weight 68.04 kg Guido Adan MD Work Phone: [facility] 02-23-2022 15:52-0400 Diastolic blood pressure 80 mm[Hg] Guido Adan MD Work Phone: [facility] 02-23-2022 15:52-0400 Systolic blood pressure 128 mm[Hg] Guido Adan MD Work Phone: [facility] Encounters Encounter Date Encounter Type Care Provider Facility Start: 07-24-2025 End: 07-24-[address] Maddy Beard MD Work Phone: -Cat Scan [facility] Start: 07-24-2025 End: 07-24-[address] Jorge Lopez MD -Cat Scan [facility] Work Phone: Start: 07-24-2025 End: 07-24-2025 [facility] Start: 06-24-2025 End: 06-24-[address] Maddy Beard MD Work Phone: -Laboratory [facility] Start: 06-24-2025 End: 06-24-[address] Jorge Lopez MD -Laboratory [facility] Start: 06-24-2025 End: 06-24-2025 [facility] Start: 05-06-2025 Non-patient / Non-visit Dr. Yunior BERTRAND -[facility] Work Phone: Start: 05-06-2025 Registered Referred Satya Thakkar NP-C -Cat Scan [facility] Work Phone: Start: 05-06-2025 ambulatory Adrian Ty Facility:[facility] [place] Start: 04-21-2025 End: 04-21-2025 Patient encounter procedure Sayta Thakkar NP-C -[facility] Work Phone: Start: 04-21-2025 End: 04-21-[address] Maddy Beard MD Work Phone: [facility] Work Phone: Start: 02-18-2025 End: 02-18-[address] Maddy Beard MD Work Phone: [facility] Work Phone: Start: 02-18-2025 End: 02-18-[address] Maddy Beard MD -Laboratory, [facility] Start: 02-18-2025 End: 02-18-2025 ambulatory Maddy Beard Facility:[facility] Start: 01-03-2025 End: 01-03-[address] Maddy Beard MD Work Phone: [facility] Work Phone: Start: 01-03-2025 End: 01-03-[address] Maddy Beard MD -Laboratory, [facility] Start: 01-03-2025 End: 01-03-2025 ambulatory Maddy Beard Facility:[facility] Start: 12-02-2024 End: 12-02-[address] Adrian Ty MD -Cardiovascular Services Work Phone: Start: 12-02-2024 ambulatory Adrian Ty Facility:[facility] [place] Start: 12-02-2024 End: 12-02-2024 ambulatory Maddy S Chirag Facility:[facility] Start: 11-24-2024 End: 11-24-2024 Emergency department patient visit Dr. Edinson Henao DO -Emergency Department Work Phone: Start: 11-13-2024 End: 11-13-2024 ambulatory Maddy S Jackieiff Facility:[facility] Start: 11-13-2024 End: 11-13-[address] Adrian Ty MD -[facility] Work Phone: Start: 10-01-2024 End: 10-01-[address] Maddy Beard MD -Radiology, [place] Work Phone: Start: 10-01-2024 End: 10-01-2024 ambulatory Maddy S Chirag Facility:[facility] Start: 05-08-2024 End: 05-08-2024 Patient encounter procedure Guido Adan MD Work Phone: OB/Gynecology Comment on above: Encounter for gyneco logical examination (general) (routine) without abnormal findings (Primary Dx); Encounter for screening mammogram for breast cancer Start: 05-08-2024 End: 05-08-2024 Patient encounter status Guido Adan MD Work Phone: [facility] Start: 05-08-2024 Documentation procedure Mammog jason Coordinator [facility] Start: 05-08-2024 Letter encounter Mammography Coordinator [facility] Department Start: 05-08-2024 End: 05-08-2024 ambulatory GUIDO ADAN Facility:[facility] Start: 05-08-2024 End: 05-08-2024 Subsequent hospital visit by physician Screen Mammo [facility] Mammogram Comment on above: Encounter for screen ing mammogram for malignant neoplasm of breast [Z12.31] Start: 01-01-2024 End: 01-01-2024 ambulatory [facility] Work Phone: Start: 01-01-2024 End: 01-01-2024 Patient encounter procedure [facility] Start: 12-29-2023 Telephone encounter Guido Adan MD Work Phone: OB/Gynecology Comment on above: Orders Start: 01-12-2023 End: 01-12-2023 ambulatory [facility] Work Phone: Start: 01-12-2023 End: 01-12-2023 Patient encounter procedure [facility]-Outpatient Bone Densitometry Start: 01-09-2023 End: 01-09-2023 ambulatory [facility] Work Phone: Start: 01-09-2023 End: 01-09-2023 Patient encounter procedure [facility] Start: 05-16-2022 End: 05-16-2022 Patient encounter procedure [...] Office Visit OB/Gynecology [address] [place], [place] [id number] Guido Adan MD [address] [place] [address] Annual Exam OB/Gynecology Comment on above: Annual Exam Start: 05-13-2025 End: 05-13-2025 Patient encounter procedure 05/13/2025 1:10 PM EDT Appointment Mammogram [address] [place] [address] Encounter for gynecological examination (general) (routine) without abnormal findings [Z01.419]; Encounter for screening mammogram for breast cancer [Z12.31] Mammogram Comment on above: Encounter for gyneco logical examination (general) (routine) without abnormal findings [Z01.419]; Encounter for screening mammogram for breast cancer [Z12.31] Start: 05-08-2025 Screening for malign ant neoplasm of breast Mammogram Screening [facility] Start: 11-24-2024 [facility] Start: 07-07-2024 Influenza vaccination Influenza Vacc ine (#1) [facility] Start: 11-06-2023 Advance Directive Discussion Advance Directive Discussion [facility] Start: 11-06-2023 Behavioral Health Screening Behavioral Health Screening [facility] Start: 11-06-2023 Depression Assessment Depression Ass essment [facility] Start: 10-09-2023 Urine microalbumin profile DTaP,Tdap,Td Vaccine (2 - Td or Tdap) [facility] Start: 07-07-2023 Covid-19 Vaccine ( season) Covid-19 Vaccine ( season) [facility] Start: 07-07-2023 Influenza vaccination Influenza Vacc ine (#1) [facility] Start: 07-07-2022 Influenza vaccination [facility] Start: 11-06-2021 ADVANCE DIRECTIVE DISCUSSION ADVANCE DIRECTIVE DISCUSSION [facility] Start: 08-25-2021 COVID-19 VACCINE (3 - Booster for Moderna series) COVID-19 VACCINE (3 - Booster for Moderna series) [facility] Start: 12-11-2020 Mammography MAMMOGRAM [facility] Start: 12-11-2020 Screening for malign ant neoplasm of breast Mammogram Screening [facility] Start: 05-14-2020 Pneumococcal Vaccine : 65+ (2 of 2 - PPSV23 or PCV20) Pneumococcal Vaccine: 65+ (2 of 2 - PPSV23 or PCV20) [facility] Start: 2019 BONE DENSITY BONE DENSITY [facility] Start: 2019 PNEUMOCOCCAL: 65+ (1 - PCV) PNEUMOCOCCAL: 65+ (1 - PCV) [facility] Start: 2019 PNEUMOVAX AGE 65 AND OVER WITH 5YR LOOKBACK (#1) PNEUMOVAX AGE 65 AND OVER WITH 5YR LOOKBACK (#1) [facility] Start: 2019 Screening for osteoporosis Bone Density Screening [facility] Start: 2014 RSV Vaccine (1 - 1-d ose 60+ series) RSV Vaccine (1 - 1-dose 60+ series) [facility] Start: 12-20-2013 Lipid panel Lipid Screening [facility] Start: 12-20-2013 LIPID SCREEN LIPID SCREEN [facility] Start: 01-22-2004 SHINGRIX VACCINE (1 of 2) SHINGRIX VACCINE (1 of 2) [facility] Start: 1999 COLOGUARD (FIT-DNA) COLOGUARD (FIT-D NA) [facility] Start: 1999 Colonoscopy COLONOSCOPY [facility] Start: 1999 COLORECTAL CANCER SCREENING COLORECTAL CANCER SCREENING [facility] Start: [address] COLONOGRAPHY [facility] Start: 1999 DIABETES SCREEN DIABETES SCREEN [facility] Start: 1999 Diabetes Screening Diabetes Screenin g [facility] Start: 1999 FECAL OCCULT BLOOD FECAL OCCULT BLOO D [facility] Start: 1999 Screening for malign ant neoplasm of colon [facility] Start: 1999 SIGMOIDOSCOPY SIGMOIDOSCOPY [facility] Start: 1973 Urine microalbumin profile DTAP,TDAP,TD (1 - Tdap) [facility] Start: 01-22-1972 HEPATITIS C SCREENING HEPATITIS C [facility] Start: 01-22-1972 Hepatitis C screening Hepatitis C [facility] Start: 1966 Adult depression screening assessment DEPRESSION SCREENING [facility] Biopsy vulva/perineu m 1 lesion spx BIOPSY OF VULVA Procedures Routine Vulval lesion Ordered: 02/23/2022 [facility] Work Phone: Comment on above: Ordered: 02/23/2022 Chlamydia trachomatis+Neisseria gonorrhoeae DNA [Presence] in Unspecified specimen by MASHA with probe detection GC/CHLAMYDIA DNA DET Lab Routine Vulval lesion Ordered: 02/23/2022 [facility] Work Phone: Comment on above: Ordered: 02/23/2022 CT angiography of coronary arteries [facility] End: 06-07-2025 DBT Breast - bilateral screening DEVAUGHN SCREENING W JESSICA Radiology Routine Encounter for gynecological examination (general) (routine) without abnormal findings Encounter for screening mammogram for breast cancer 1 Occurrences starting 05/08/2024 until 06/07/2025 [facility] Work Phone: Comment on above: 1 Occurrences starti ng 05/08/2024 until 06/07/2025 Hepatic function panel [facility] Lipid 1996 panel - S dipika or Plasma [facility] End: 01-27-2025 MG Breast Screening DEVAUGHN SCREENING Radiology Routine Encounter for screening mammogram for malignant neoplasm of breast 1 Occurrences starting 12/30/2023 until 01/27/2025 [facility] Work Phone: Comment on above: 1 Occurrences starti ng 12/30/2023 until 01/27/2025 MG Breast Screening DEVAUGHN SCREENIN G Radiology Routine Encounter for screening mammogram for malignant neoplasm of breast 05/08/2024 1:24 PM EDT [facility] Work Phone: Patient Education ED High Blood Pressure Hypertension ED Palpitations [facility] Work Phone: Patient referral [facility] Work Phone: End: 03-25-2023 Screening mammography bi 2-view breast inc cad DEVAUGHN SCREENING Radiology Routine Encounter for screening mammogram for breast cancer 1 Occurrences starting 02/23/2022 until 03/25/2023 [facility] Work Phone: Comment on above: 1 Occurrences starti ng 02/23/2022 until 03/25/2023 SURGICAL PATHOLOGY SURGICAL PATH OLOGY Lab Routine Vulvar lesion 03/09/2022 12:25 PM EDT [facility] Work Phone: T VAGINALIS AMPLIFICATION T VAGINALIS AMPLIFICATION Lab Routine Vulval lesion Ordered: 02/23/2022 [facility] Work Phone: Comment on above: Ordered: 02/23/2022 Narinder chris Payers Date Payer Category Payer Self-pay [id number] 2019 Unknown ANTHEM BLUE CROS S AND BLUE SHIELD ANTHEM MEDIBLUE ACCESS [id number] 2019-Present [phone] [address] [place] [address] PPO [id number] 2019 Unknown [id number] 2019 Medicare [id number] Medicare MEDICARE PART A B [id number] Medicare MEDICARE PART A B [id number] Unknown [id number] Unknown [id number] Unknown [id number] Unknown [id number] Unknown [id number] Unknown [id number] Unknown [id number] Unknown [id number] Unknown [id number] Unknown [id number] Unknown [id number] Unknown [id number] Unknown [id number] Social History Date Type Detail Facility Start: 05-08-2024 Tobacco smoking stat us DCIS Never smoked tobacco [facility] Start: 02-23-2022 End: 05-08-2024 Alcohol intake Current non-drinker of alcohol (finding) [facility] Start: 1955 Sex Assigned At Not on file [facility] Start: 02-13-2022 End: 05-16-2022 Exposure to SARS-CoV-2 (event) Not sure [facility] Start: 11-08-2019 End: 11-08-2019 Tobacco smoking status NHIS Unknown if ever smoked [facility] Start: 1955 Sex Assigned At Female [facility] Start: 05-16-2022 End: 05-08-2024 History of Social function [facility] Start: 05-16-2022 End: 05-08-2024 Tobacco use panel [facility] National Score (1-100), lower number is lower risk 51 [facility] Start: 05-08-2024 Tobacco use and exposure Smokeless tobacco non-user [facility] Start: 05-01-2024 Gender identity Identifies as female gender (finding) [facility] Start: 11-24-2024 Tobacco smoking stat us DCIS Ex-smoker (finding) [facility] Start: 01-16-2025 End: 02-24-2025 Sex Female (finding) [facility] Mental Status Date Assessment Result Facility 11-24-2024 Cognitive function Voice/Name [facility] Work Phone: Clinical Notes 01-11-2013 to 07-28-2025 Note Date & Type Note Facility 07-28-2025 Radiology Diagnostic study note [facility] Imaging Services [address] [place] [address] Abdomen/Pelvis without Cont MR#: [id number] Acct: [id number] Name: AMERICO LEES Rep #: [id number] : 1955 F 70 From: Tony Elkins MD PCP: Dr. Jorge Lopez MD Status: REG CL I Study:Abdomen/Pelvis without Cont Date of Exa m: 07/24/25 Exam# [id number] Ordering Dr: Aria Lopez MD PROCEDURE: ABDOMEN/PELVIS [...] No acute abnormality is seen. Reading Location: [place] [address] CC: Dr. Jorge Lopez MD ~ News Broadcaster: Signed [facility] 04-21-2025 Evaluation note Diagnosis Onset Date Resolution Elevated cholesterol acute April 21, 2025 9:15am Essential (primary) hypertension acute April 21, 2025 9:15am Fatigue acute April 21 9:15am [facility] Work Phone: 1(599) 948-200401-08-2025 Evaluation note* Diagnosis Onset Date Resolution Status Admit Date Elevated cholesterol acute Mariano ninoska 2024 12:56pm Essential (primary) hypertension acute November 13 12:56pm [facility] Work Phone: 1(614) 819-885407-03-2024 Note* Letter - Coordinator, Mammography - 05/08/2024 1:45 PM EDT May 10, 2024 PID: [id number] Americo [address] [place] [address] Dear Ms. Lees, We are pleased to [...] report will be kept on file at [facility] as part of your permanent medical record and are available for your continuing care. Thank you for allowing us to help in meeting your health care needs. Sincerely, Dr. Smith Interpreting Radiologist [facility] (Normal over 40) [facility]07-03-2024 Miscellaneous Notes* Letter - Coordinator, Mammography - 05/08/2024 1:45 PM EDT May 10, 2024 PID: [id number] Americo [address] [place] [address] Dear Ms. Lees, We are pleased to [...] report will be kept on file at [facility] as part of your permanent medical record and are available for your continuing care. Thank you for allowing us to help in meeting your health care needs. Sincerely, Dr. Smith Interpreting Radiologist [facility] (Normal over 40) documented in this encounterOhio[facility]-2024 NoteHNO ID: [id number] Author: GUIDO ADAN MD Service: ? Author Type: Physician Type: Progress Notes Filed: 05/08/2024 13:50 Note Text: Americo is a 69 year old who presents for an annual gynecologic exam without complaints. Uses clobetasol occasionally for 2-3 days and then resolves. 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 Uses clobetasol occasionally for 2-3 days and then resolves. 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 History Comments: Sexual Activity: Yes; No partner [...] external genitalia normal, normal Bartholin's glands, urethra, White Bird's glands, no vulvar lesions, no cervical lesions, [...] needed Guido Adan MD [facility] History of Present illness Narrative* Jae Bermeo [...] PATIENT PRESENTS WITH AN IMPLANTABLE OR ATTACHED MEAT GRADER: No RADIOLOGY DEPARTMENT: Mammography PERIPHERAL IV DATA: Not applicable SIGNED BY: Terrell Waggoner May 08, 2024 1:23 PM documented in this encounterOhio[facility]07-[facility]-2024 NoteHNO ID: [id number] Author: JAE BERMEO Mammo Tech Service: ? Author Type: Director Of Group Sales Type: Progress Notes Filed: 05/08/2024 13:23 Note [...] PATIENT PRESENTS WITH AN IMPLANTABLE OR ATTACHED MEAT GRADER: No RADIOLOGY DEPARTMENT: Mammography PERIPHERAL IV DATA: Not applicable SIGNED BY: Terrell Waggoner May 08, 2024 1:23 [facility]02-24-2024 Miscellaneous Notes* Telephone Encounter - Guido Adan MD - 12/30/2023 2:03 PM EST ordered. Schedule. Guido Adan MD * Telephone Encounter - Tran Berry - 12/29/2023 2:46 PM EST Patient calling to schedule mammogram and annual. Patient's last mammogram was in 2019. Please advise and call patient. 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 ok-OS-QI-Jx-Uxq-Fxsvert-Lutein (CENTRUM) 0.4-162-18 mg ORAL Tab Take 1 [...] ulcerations or hyperpigmentation, normal Bartholin's glands, urethra, White Bird's glands, no vulvar lesions, no cervical lesions, [...] Making Guido Adan MD documented in this encounterOhio[facility]22 Miscellaneous Notes* Telephone Encounter - Sandrita Gilman [...] recommendations? Lissa Mcnally RN documented in this encounterOhio[facility]05-04-2022 History of Present illness Narrative* Guido Adan [...] written material given to the patient. 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 Mechanic History Comments: Sexual Activity: Yes; No partner [...] majora and periurethra., normal Bartholin's glands, urethra, White Bird's glands, no vulvar lesions, no cervical lesions, [...] needed Guido Adan MD documented in this encounterOhio[facility] History of Past illness Narrative* Problem Noted Date Resolved Date ASCUS (atypical squamous yahir ls of undetermined significance) on Pap smear 01/11/2013 02/23/2022 documented as of this encounter (statuses as of 02/23/2022) [facility]03-08[facility] History of Past illness Narrative* Problem Noted Date Resolved Date ASCUS (atypical squamous yahir ls of undetermined significance) on Pap smear 01/11/2013 02/23/2022 documented as of this encounter (statuses as of 03/09/2022) [facility]03[facility] History of Past illness Narrative* Problem Noted Date Resolved Date ASCUS (atypical squamous yahir ls of undetermined significance) on Pap smear 01/11/2013 02/23/2022 documented as of this encounter (statuses as of 03/09/2022) [facility] History of Past illness Narrative* Problem Noted Date Resolved Date ASCUS (atypical squamous yahir ls of undetermined significance) on Pap smear 01/11/2013 02/23/2022 documented as of this encounter (statuses as of 05/16/2022) [facility] History of Past illness Narrative* Problem Noted Date Diagnosed Date Resolved Date ASCUS (atypical squamous yahir ls of undetermined significance) on Pap smear 01/11/2013 02/23/2022 documented as of this encounter (statuses as of 12/30/2023) [facility] Diagnosis Encounter for gynecological examination with abnormal finding- Primary Routine gynecological examination Encounter for screening mammogram for breast cancer Vulval lesion Other specified noninflammatory disorder of vulva and perineum documented in this encounter [facility] Diagnosis Vulvar lesion- Primary Other specified noninflammatory disorder of vulva and perineum [facility] encounter [facility]* Diagnosis Vulvar irritation- Primary Other specified noninflammatory disorder of vulva and perineum documented in this encounter [facility] noteNo assessment information availableWSouthwest General Health Center Work Phone: Evaluation note* Diagnosis Encounter for screening mammogram for malignant neoplasm of breast- Primary Other screening [facility] Diagnosis Encounter for gynecological examination (general) (routine) without abnormal findings- Primary Encounter for screening mamm[facility] for breast cancer [facility] Diagnosis Encounter for screening mammogram for malignant neoplasm of breast Other screening mammogram [facility] Diagnosis Onset Date Resolution Status Admit Date Elevated cholesterol acute April 21, 2025 9:15am Essential (primary) hypertension acu te April 21, 2025 9:15am Fatigue acute April 21 9:15am [employer] Work Phone: Reason for referral (narrative)* Diagnostic Procedure Only (Routine) - Pending Review Specialty Diagnoses / Procedures Referred By Barbara mayers Referred To Contact [facility] Diagnoses Encounter for gynecological examination (general) (routine) without abnormal findings Encounter for screening mammogram for breast cancer Procedures DEVAUGHN SCREENING SCREENING MAMMOGRAPHY BI 2-VIEW BREAST INC Guido Yu MD [address] [place] [address] [facility] [address] [place] [address] Referral ID Status Reason Start Date Expiration Date Visits Requested Visits Authorized [id number] Pending Review Auto-Generat ed Referral 02/23/2022 03/25/2023 1 1 [facility] for referral (narrative)* Diagnostic Procedure Only (Routine) - Pending Review Specialty Diagnoses / Procedures Referred By Barbara mayers Referred To Contact [facility] Diagnoses Encounter for screening mammogram for malignant neoplasm of breast Procedures DEVAUGHN SCREENING SCREENING MAMMOGRAPHY BI 2-VIEW BREAST INC Guido Yu MD [address] [place] [address] [facility] [address] [place] [address] Referral ID Status Reason Start Date Expiration Date Visits Requested Visits Authorized [id number] Pending Review Auto-Generat ed Referral 12/30/2023 01/27/2025 1 1 [facility] for referral (narrative)* Diagnostic Procedure Only (Routine) - Authorized Specialty Diagnoses / Procedures Referred By Barbara mayers Referred To Contact [facility] Diagnoses Encounter for gynecological examination (general) (routine) without abnormal findings Encounter for screening mammogram for breast cancer Procedures DEVAUGHN SCREENING W JESSICA SCREENING DIGITAL BREAST TOMOSYNTHESIS BI SCREENING MAMMOGRAPHY BI 2-VIEW BREAST INC Guido Yu MD [address] [place] [address] [facility] [address] [place] [address] Referral ID Status Reason Start Date Expiration Date Visits Requested Visits Authorized [id number] Authorized Auto-Generat ed Referral 05/08/2024 06/07/2025 1 1 [facility] (narrative)No reason for referral information availableWSouthwest General [facility] Work Phone: Reason for visit Narrative* Diagnostic Procedure Only (Routine) - Closed Specialty Diagnoses / Procedures Referred By Contac t Referred To Contact [facility] Diagnoses Encounter for screening mammogram for malignant neoplasm of breast Procedures DEVAUGHN SCREENING SCREENING MAMMOGRAPHY BI 2-VIEW BREAST INC CAD Guido Adan MD [address] [place] [address] [facility] [address] [place] [address] Referral ID Status Reason Start Date Expiration Date V isits Requested Visits Authorized [id number] Closed Auto-Generate d Referral 12/30/2023 01/27/2025 1 1 [facility] Chief Complaint and Reason for Visit Chief [...] 21, 2025 9:15 am Family History of [place] (RONY) May 06, 025 6:29am CT CALCIUM SCORING May 06, 2025 6:30a m Chief Complaint Admit Date 5 M FU [place] 16th, 2025 9:15 am Family History of [place] (RONY) May 06 6:29am CT CALCIUM SCORING May 06, 2025 6:30a m ABD PAIN July 24, 2025 6:39pm Advance Directives No Advanced Directives Records Found Advance Directive Response Recorded Date/ Time Living Will No November 08 0 10:16pm Power of Pricing Manager No November 08 10:16pm Advance Directive Response Recorded Date/ Time Living Will No November 08 0 9:16pm Power of Pricing Manager No November 08 9:16pm Advance Directive Response Recorded Date/ Time Living Will No November 24 8:27pm Power of Pricing Manager No November 24, 2024 8:27pm Advance Directive Response Recorded Date/ Time Living Will No November 24 8:27pm Do you have a Healthcare Power of Pricing Manager? No November 24, 2024 8:27pm Summary Purpose [...] or prosecute any alcohol or drug abuse patient.[facility] the event this information is protected by the Federal Confidentiality of Alcohol and Drug Abuse Patient Records regulations: The Federal rules restrict any use of the information to criminally investigate or prosecute any alcohol or drug abuse patient.[facility] the event this information is protected by the Federal Confidentiality of Alcohol and Drug Abuse Patient Records regulations: The Federal rules restrict any use of the information to criminally investigate or prosecute any alcohol or drug abuse patient.[facility] the event this information is protected by the Federal Confidentiality of Alcohol and Drug Abuse Patient Records regulations: The Federal rules restrict any use of the information to criminally investigate or prosecute any alcohol or drug abuse patient.[facility] HospitalIn the event this information is protected by the Federal Confidentiality of Alcohol and Drug Abuse Patient Records regulations: The Federal rules restrict any use of the information to criminally investigate or prosecute any alcohol or drug abuse patient.[facility] the event this information is protected by the Federal Confidentiality of Alcohol and Drug Abuse Patient Records regulations: The Federal rules restrict any use of the information to criminally investigate or prosecute any alcohol or drug abuse patient.[facility] Hospital[facility] the event this information is protected by the Federal Confidentiality of Alcohol and Drug Abuse Patient Records regulations: The Federal rules restrict any use of the information to criminally investigate or prosecute any alcohol or drug abuse patient.[facility] HospitalIn the event this information is protected by the Federal Confidentiality of Alcohol and Drug Abuse Patient Records regulations: The Federal rules restrict any use of the information to criminally investigate or prosecute any alcohol or drug abuse patient.[facility] Care Teams (unrecognized sec tion and content) Monotype Keyboard Operator Relationship Specialty Start Date End Date Maddy Beard PCP - General Family Practice 02/04/14 Monotype Keyboard Operator Relationship Specialty Start Date End Date Maddy Beard PCP - General Family Practice 02/04/14 Monotype Keyboard Operator Relationship Specialty Start Date End Date Maddy Beard PCP - General Family Practice 02/04/14 Monotype Keyboard Operator Relationship Specialty Start Date End Date Maddy Beard PCP - General Family Practice 02/04/14 Team [...] Prov ider, Attending Provider, Referring Provider Active Monotype Keyboard Operator Relationship Specialty Start Date End Date JackieryanMaddy PCP - General Family Medicine 02/04/14 Monotype Keyboard Operator Relationship Specialty Start Date End Date Maddy Beard PCP - General Family Medicine 02/04/14 Monotype Keyboard Operator Relationship Specialty Start Date End Date KarolzayraryanMaddy PCP - General Family Medicine 02/04/14 Monotype Keyboard Operator Relationship Specialty Start Date End Date KarolzayraryanMaddy PCP - General Family Medicine 02/04/14 Team Status: Inactive Member Role Status Dates Dr. Maddy Beard MD Primary Care Provider Active Start: October 01, 2024 End: October 01, 2024 Dr. Maddy Beard MD Attending Provider Active Start: October 01, 2024 End: October 01, 2024 Dr. Maddy Baerd MD Referring Provider Active Start: October 01, [...] 2025 End: April 21, 2025 Satya Thakkar ASSISTANT PLANT MANAGER, ASSISTANT PLANT MANAGER-C Attending Provider Active S tart: April 21, [...] 2025 End: April 21, 2025 Satya Thakkar ASSISTANT PLANT MANAGER, ASSISTANT PLANT MANAGER-C Attending Provider Active S tart: April 21, 2025 End: April 21, 2025 Jorge Lopez MD Primary Care Provider Active St art: April 21, 2025 End: April 21, 2025 Team Status: Active Member Role/Relationship Status Dates Jorge Lopez MD Primary Care Provider Active St art: May 06, 2025 Satya Thakkar ASSISTANT PLANT MANAGER, ASSISTANT PLANT MANAGER-C Attending Provider Active S tart: May 06, 2025 Satya Thakkar ASSISTANT PLANT MANAGER, ASSISTANT PLANT MANAGER-C Referring Provider Active S tart: May 06, [...] 2025 End: April 21, 2025 Satya Thakkar ASSISTANT PLANT MANAGER, ASSISTANT PLANT MANAGER-C Attending physician Active Start: April 21, 2025 End: April 21, 2025 Jorge Lopez MD Primary care physician Active S tart: April 21, 2025 End: April 21, 2025 Team Status: Active Member Role/Relationship Status Dates Jorge Lopez MD Primary care physician Active S tart: May 06, 2025 Satya Thakkar ASSISTANT PLANT MANAGER, ASSISTANT PLANT MANAGER-C Attending physician Active Start: May 06, 2025 Satya Thakkar ASSISTANT PLANT MANAGER, ASSISTANT PLANT MANAGER-C Referring Provider Active S tart: May 06, [...] July 24, 2025 End: July 24, 2025 oJrge Lopez MD Attending physician Active Star t: [...] section and content) DATE CREATED AUTHOR 05/21/2024 [facility] DATE CREATED AUTHOR AUTHOR'S ORGANIZ ATION 08/11/2025 [facility] FOR RECORDS PERTAINING TO PATIENTS WHO [...] THE PRIMARY CLINICAL RECORDS. [facility] [employer] [facility]. provides no warranty or guarantee of the accuracy or completeness of information in this document.
[2025-08-30 16:09] LABS: Bluegrass, Kentucky <0.10 kU/L (Class 0); Cat Hair/Dander, Standard <0.10 kU/L (Class 0); Cedar, Mountain <0.10 kU/L (Class 0); Cockroach, American <0.10 kU/L (Class 0); Dog Epithelia <0.10 kU/L (Class 0); Elm, American White <0.10 kU/L (Class 0); Hazelnut Tree <0.10 kU/L (Class 0); Hickory, White <0.10 kU/L (Class 0); Mulberry, White <0.10 kU/L (Class 0); Oak, White <0.10 kU/L (Class 0); Pigweed, Rough <0.10 kU/L (Class 0); Plantain, English <0.10 kU/L (Class 0); Ragweed, Short/Common <0.10 kU/L (Class 0); Sheep Sorrel(Dock) <0.10 kU/L (Class 0); Sycamore, American <0.10 kU/L (Class 0)
== END | disposition home or self-care (01) ==
LOC: LABSPEC 19:24 → MFPLAB 19:56
PROVIDERS: PCP Family Medicine; Referring Provider Family Medicine; Visit Provider Family Medicine
DX: R10.9 Unspecified abdominal pain (principal)
CPT/HCPCS: 36415; 82784; 83516; 86003; 86255

== ENCOUNTER → 2025-10-08 | Outpatient (CLI) | payer MEDICARE, SELFPAY ==
[2025-10-08 12:42] LABS: Hematocrit 38.1 % (37-47); Hemoglobin 12.7 g/dL (12.0-15.0); Mean Corp Hgb Conc 33.3 g/dL (32-36); Mean Corpuscular Volume 90.1 fL (81-99); Mean Platelet Vol. 9.6 fl (6.2-12.0); Platelet Count 257 K/mm3 (150-450); RBC Distribution Width CV 12.4 % (11.6-14.6); RBC Distribution Width SD 40.3 fl (35.1-43.9); Red Blood Count 4.23 M/mm3 (4.2-5.4); White Blood Count 6.1 K/mm3 (4.4-11.0)
[2025-10-08 15:44] LABS: AST(SGOT) 20 U/L (<=31); Alanine Aminotransfer ALT/SGPT 18 U/L (<=34); Albumin, Serum 4.1 g/dL (3.4-4.8); Alkaline Phosphatase 104 U/L (35-104); Anion Gap 9 (5-15); BUN 13 mg/dL (4-19); BUN/Creat Ratio 18.0 RATIO (10-20); Calcium,Total 9.5 mg/dL (7.6-11.0); Carbon Dioxide 27.5 mmol/L (21.0-32.0); Chloride 102 mmol/L (98-108); Cholesterol 136 mg/dL (<=200); Globulin 2.6 g/dL (2.2-4.2); Glucose 87 mg/dL (70-99); Low Density Lipoprotein Calc. 70 mg/dL; Potassium 4.8 mmol/L (3.3-5.1); Triglycerides 168 mg/dL; Very Low Density Lipoprotein 34 mg/dL (5-40); cholesterol:hdl ratio screen 3.61
== END | disposition home or self-care (01) ==
LOC: MFPLAB 11:40
PROVIDERS: PCP Family Medicine; Visit Provider Family Medicine
DX: I10 Essential (primary) hypertension (principal); E03.9 Hypothyroidism, unspecified
CPT/HCPCS: 36415; 80053; 80061; 84443; 85027